=== PATIENT | male | born 1945 | race Caucasian/White ===

== ENCOUNTER 2021-03-15 07:58 | Outpatient (CLI) | payer BC, SELFPAY ==
--- NOTE | 2021-03-15 08:00 | ECG_ITS ---
Measurements Intervals [place] Rate: 66 P: 26 WA: 177 QRS: 24 QRSD: 136 T: 51 QT: 424 QTc: 446 Interpretive Statements SINUS RHYTHM POSSIBLE LEFT ATRIAL ENLARGEMENT RIGHT BUNDLE BRANCH BLOCK CANNOT RULE OUT SEPTAL INFARCT, AGE INDETERMINATE BASELINE ARTIFACT- I, II, III, AVL, AVF ABNORMAL ECG Electronically Signed On 03-15-2021 8:22:01 CDT by Pepe Meeks D.O.
[2021-03-15 09:05] LABS: Anion Gap 11 mmol/L (8-16); Blood Urea Nitrogen 41 mg/dL (9-20); Calcium 8.9 mg/dL (8.4-10.2); Carbon Dioxide 24 mmol/L (22-30); Chloride 102 mmol/L (98-107); Estimated Glomerular Filt Rate 59; Glucose 159 mg/dL (65-110); Potassium 3.9 mmol/L (3.4-5.0); Sodium 137 mmol/L (137-145)
== END 2021-03-15 07:59 | disposition home or self-care (01) ==
LOC: ANHSURGERY 08:03
PROVIDERS: Anesthesiology; PCP Internal Medicine; Visit Provider Orthopaedic Surgery
DX: E11.9 Type 2 diabetes mellitus without complications (principal); I10 Essential (primary) hypertension; Z01.818 Encounter for other preprocedural examination; R94.31 Abnormal electrocardiogram [ECG] [EKG]
CPT/HCPCS: 36415; 80048; 93005

== ENCOUNTER 2021-03-25 04:20 | Day surgery (SDC) | payer BC, SELFPAY ==
[2021-03-10 10:36] VITALS: BMI 34.0
[2021-03-25] VITALS (9 sets, daily range): BP systolic 113–146; BP diastolic 55–74; PULSE 55–61; RESP 16–18; TEMP 36.3; O2SAT 96–99
--- NOTE | ~2021-03-25 | XR_ITS ---
EXAMINATION: XR surgery orthopedic DATE: 03/25/2021 13:09 INDICATION: Left great toe osteomyelitis. TECHNIQUE: 2 intraoperative fluoroscopic views of left foot were obtained. I was not present. Fluoros copy exposure time was 5 seconds. COMPARISON: Left foot radiographs 02/23/2021 FINDINGS: There is amputation of the first ray at the diaphysis of first proximal phalanx. There is s evere hallux valgus. IMPRESSION: 1. Amputation of the first ray at the diaphysis of the proximal phalanx. Reviewed, dictated and finalized at location B.
--- NOTE | 2021-03-25 07:11 | WPDHPUPDATE1 ---
History and Physical Update Update Date/Time: 03/25/21 07:11 History and Physical has been reviewed, including an updated exam of the patient. There are NO changes in the patient's condition. Risks, benefits, and alternatives have been discussed and questions answered. Patient agrees to proceed with procedure.
[2021-03-25] MEDS: ACETAMINOPHEN 500 MG TABLET 1000 MG PO (11:09)
[2021-03-25] MEDS: KETOROLAC 15 MG/ML VIAL (*BKC) IV PUSH (11:09)
[2021-03-25] MEDS: LACTATED RINGERS 1,000 ML 30 ML IV CONT (11:11)
--- NOTE | 2021-03-25 11:13 | SUR.PREOP ---
patient states he has crutches at home and is very familiar with using them. denies need for any teaching
[2021-03-25 11:21] LABS: Glucose Point of Care 177 mg/dl (65-105)
--- NOTE | 2021-03-25 12:21 | WPDANESEPPF ---
Anes - Initial Pre Proc Eval Procedure: Operation Date: 03/25/21 12:30 Proposed Procedures p Left Foot Debridement, Excision Osteomyelitis - Jeremiah Carey MD s Possible Left Hallux Amputation - Jeremiah Carey MD Date/Time: 03/25/21 12:21 Surgeon: Jeremiah Carey MD Pre Op Diagnosis: left diabetic foot, left hallux steomyelitis Patient Data Age: 75 Gender: M Height: 1.75 m Weight: 106.4 kg Last Vital Signs Temp 36.3 C L 03/25/21 10:51 Pulse 61 03/25/21 10:51 Resp 16 03/25/21 10:51 BP 137/60 03/25/21 10:51 Pulse Ox 98 03/25/21 10:51 Allergies Allergy/AdvReac Type Severity Reaction Status Date / Time Penicillins Allergy Unknown Hives Verified 03/25/21 10:12 Home Medications Medication Instructions Recorded Confirmed Type mecobalamin (vitamin B12) 1,000 1,000 mcg SUBLINGUAL DAILY 08/06/19 03/25/21 History mcg disintegrating tablet,sublingual omega-3 fatty acids 1,000 mg 2,000 mg PO BID cap 08/06/19 03/25/21 History capsule dapagliflozin 5 mg tablet See Rx Instructions .ROUTE 06/30/20 03/25/21 Rx .COMPLEX #90 tablet rosuvastatin 40 mg tablet See Rx Instructions .ROUTE 10/16/20 03/25/21 Rx .COMPLEX #90 tablet indapamide 2.5 mg tablet See Rx Instructions .ROUTE 10/27/20 03/25/21 Rx .COMPLEX #90 tablet semaglutide See Rx Instructions .ROUTE 11/19/20 03/25/21 Rx .COMPLEX #1.5 syr pen needle, diabetic 32 gauge x See Rx Instructions .ROUTE 11/25/20 03/25/21 Rx 1/4 .COMPLEX #100 syringe irbesartan 300 mg tablet See Rx Instructions .ROUTE 12/09/20 03/25/21 Rx .COMPLEX #90 tablet flash glucose scanning reader #1 ea 12/30/20 03/25/21 Rx flash glucose sensor #6 ea 12/30/20 03/25/21 Rx insulin aspar prot-insulin aspart See Rx Instructions .ROUTE 02/09/21 03/25/21 Rx 100 unit/mL (70-30) subcutaneous .COMPLEX #45 syr pen nebivolol 10 mg tablet See Rx Instructions .ROUTE 03/09/21 03/25/21 Rx .COMPLEX #90 tablet metformin 1,000 mg PO BID PRN 03/10/21 03/25/21 History blood sugar diagnostic #100 each 03/11/21 03/25/21 Rx colesevelam 625 mg tablet 1,875 mg PO BID #540 tablet 03/22/21 03/25/21 Rx Laboratory Tests 03/25/21 11:17 POC Capillary Glucose 177 mg/dl H mg/dl (65-105) Patient hx anesthesia problems: none Family hx anesthesia problems: none PMFSH Past Medical History Medical History Abnormal electrocardiography Abnormal finding of blood chemistry, unspecified Amputation of toe ASHD (arteriosclerotic heart disease) Benign essential hypertension BMI 34.0-34.9,adult CKD (chronic kidney disease) Color blind Diabetes mellitus type 2, insulin dependent Diabetes mellitus with hyperglycemia, with long-term current use of insulin Diabetes mellitus with neuropathy Diabetic foot ulcer Elevated homocysteine Elevated PSA Encounter for preventive health examination Encounter for routine adult health examination without abnormal findings Hallux valgus Hearing loss History of prostate cancer Hyperlipidemia Left hallux osteomyelitis Myocardial contusion Non-healing skin lesion On intermediate designer drug therapy Prostate cancer screening PVCs (premature ventricular contractions) Ulcer of left foot due to type 2 diabetes mellitus Surgical History Surgical History History of foot surgery Hx of CABG Family History Family History Sibling Family history of heart disease in male family member before age 55 Grandparent Acute myocardial infarction Other Diabetes mellitus Family history of malignant neoplasm Hypertension Social History Social History Second hand tobacco smoke exposure: No Alcohol intake: never Drinks per week: 1 Substance use: never Substance use type: does not use Living arrangements: with family
[2021-03-25] MEDS: ceFAZolin 2 GM/D5W 50 ML 2 GM/50 ML BAG IVPB (12:38)
[2021-03-25] MEDS: BUPIVACAINE HCL 0.5% PF 30 ML VIAL INFILTRATE (13:05)
--- NOTE | 2021-03-25 13:21 | P.OP_ITS ---
Procedure Note - Detailed Date of Procedure 03/25/21 Pre-op Diagnosis left diabetic foot ulcer, left hallux osteomyelitis Post-op Diagnosis same Procedure Performed Debridement of left diabetic foot ulcer, 6 centimeter squared. Interphalangeal amputation of the left hallux. Surgeon Jeremiah Carey MD Insurance Claim Representative blacksmith assistant Anesthesia general Indications 75-year-old gentleman with insulin-dependent diabetes and peripheral neuropathy. Previous history of ulcerations, osteomyelitis and amputations of the toes and both feet. Presents with ulcer involving the left hallux and forefoot as well as concern for osteomyelitis of the hallux. Worsening despite oral antibiotics wound care. Presents for operative treatment. Full discussion had with the patient about chance for salvage of the toe versus amputation. Patient verbalizes understanding. Findings Osteomyelitis of the distal phalanx of the hallux involving most of the distal phalanx and the interphalangeal joint. 3 x 2 cm ulceration medial hallux. 1 x 1 cm ulceration lateral hallux with communication through interphalangeal joint. Description of Procedure What was done: Patient identified in the preoperative holding. Informed consent given. Operative extremity marked. Patient received intravenous antibiotics. Patient brought to the operating room where underwent general anesthetic by anesthesia team. Positioned supine on operating room table. Time-out performed confirming the patient, site of the surgery and the plan. left foot prepped draped usual sterile surgical fashion a Betadine prep solution. The foot was exsanguinated and a calf tourniquet inflated to 225 mmHg. Fifteen blade knife used to debride the left diabetic foot ulcer which was 3 x 2 cm. Excisional debridement performed of the skin, subcutaneous tissue and muscle. The flexor hallucis longus tendon was also noted to be involved in was sharply excised from the wound. Wound thoroughly irrigated with antibiotic solution and closed with 0 Prolene interrupted suture. Dorsal incision made over the hallux and osteomyelitis of the distal phalanx and the interphalangeal joint noted. Due to the amount of involvement of the distal phalanx resection of the osteomyelitis would have left no support. Decision to perform interphalangeal amputation was made at that time. Medial collateral ligaments released. The incision was keep continued circumferentially in the distal aspect of the hallux was removed and passed off. The distal end of the proximal phalanx was removed with a rongeur. Wound thoroughly irrigated antibiotic solution. Soft tissue closed with 3-0 Monocryl interrupted suture. Skin repaired with 0 Prolene interrupted suture. Sterile dressing applied. The patient was then woken from anesthesia, extubated and taken to the recovery room in stable condition. All sponge, needle, instrument counts were correct at the end of the case. Estimated Blood Loss 5 Tourniquet Time 20 Drains No Packing No Pathology yes ( Distal hallux left foot) Complications None Condition stable Disposition PACU
[2021-03-25 13:34] LABS: Glucose Point of Care 171 mg/dl (65-105)
--- NOTE | 2021-03-25 15:00 | SUR.PHASEII ---
Patient has a boot that we are going to make sure fits over dressing before d/c.
== END 2021-03-25 15:25 | disposition home or self-care (01) ==
PROVIDERS: PCP Internal Medicine; Visit Provider Orthopaedic Surgery
PROC: (CPT 11043; principal; 2021-03-25 12:30)
PROC: (CPT 11043; 2021-03-25 12:30)
DX: E11.621 Type 2 diabetes mellitus with foot ulcer (principal); L97.529 Non-pressure chronic ulcer of other part of left foot with unspecified severity; M86.9 Osteomyelitis, unspecified; L03.032 Cellulitis of left toe; E11.42 Type 2 diabetes mellitus with diabetic polyneuropathy; Z79.4 Long term (current) use of insulin; E11.22 Type 2 diabetes mellitus with diabetic chronic kidney disease; I12.9 Hypertensive chronic kidney disease with stage 1 through stage 4 chronic kidney disease, or unspecified chronic kidney disease; N18.9 Chronic kidney disease, unspecified; I25.10 Atherosclerotic heart disease of native coronary artery without angina pectoris; E66.9 Obesity, unspecified; Z68.34 Body mass index [BMI] 34.0-34.9, adult; Z95.1 Presence of aortocoronary bypass graft; Z85.46 Personal history of malignant neoplasm of prostate; Z79.899 Other long term (current) drug therapy; Z88.0 Allergy status to penicillin
CPT/HCPCS: 11043; 28825; 82948; 88305; 88311; A9270; J0690; J1100; J1885; J2405; J2704; J3010; J7120

== ENCOUNTER 2022-07-07 15:37 | Inpatient (IN) | payer BC, MEDICARE, SELFPAY ==
[2022-07-07] VITALS (10 sets, daily range): BP systolic 116–142; BP diastolic 58–77; PULSE 54–73; RESP 14–20; TEMP 36.3–36.9; O2SAT 95–100
--- NOTE | ~2022-07-07 | XR_ITS ---
EXAMINATION: XR chest 1V portable DATE: 07/14/2022 09:51 INDICATION: Verify position of PICC line with the patient complaint of pinching . TECHNIQUE: frontal view of the chest was obtained. COMPARISON: Chest radiograph dated 09/14/2018 FINDINGS: Tip of a relatively small bore catheter is seen projecting over the soft tissues at the medial aspect of the proximal most left upper arm near the axilla. Unclear whether this represents a peripheral IV or peripherally inserted central venous catheter. No other catheters identified. Lungs remain clear with no focal airspace opacities, pulmonary edema, pleural effusion or pneumothora x. Chronic eventration along the right hemidiaphragm. Cardiomediastinal silhouette is normal. Median sternotomy wires and mediastinal surgical clips are seen, likely from prior coronary artery bypass gr afting. IMPRESSION: 1. Tip of an incompletely visualized catheter at the medial aspect of the proximal most left upper ar m. 2. No acute cardiopulmonary disease. Reviewed, dictated and finalized at location A. TRIMMER IMPRESSION: 1. Tip of an incompletely visualized catheter at the medial aspect of the proxi mal most left upper arm. 2. No acute cardiopulmonary disease.
--- NOTE | ~2022-07-07 | MR_ITS ---
EXAMINATION: MR foot LT wo con DATE: 07/08/2022 13:58 INDICATION: Left foot diabetic ulcer. TECHNIQUE: Magnetic resonance imaging (MRI) of the left foot was performed without intravenous contra st. COMPARISON: Left foot MRI 06/13/2017, radiograph 07/07/2022, 03/30/2021 FINDINGS: There is severe hallux valgus. There is amputation of diaphysis of first proximal phalanx. There are changes of resection of distal half of fourth metatarsal. There is amputation of diaphysis of fifth metatarsal. There is severe osteoarthritis of medial naviculocuneiform joint. There is later al subluxation of the second and third metatarsals with respect to the tarsal bones with tear of the Lisfranc ligament. There is severe osteoarthritis of first-third tarsometatarsal joints and moderate osteoarthritis of fourth and fifth tarsometatarsal joints. There is moderate osteoarthritis of first metatarsophalangeal joint. There is osteoarthritis involving the remaining interphalangeal joints. Th ere is an ulcer plantar to the third metatarsophalangeal joint. There is soft tissue gas in third dig it. There are erosions of third metatarsophalangeal joint. There is gas and heterogeneous signal inte nsity in third proximal phalanx, consistent with osteomyelitis. There is cellulitis around third meta tarsophalangeal joint and third proximal phalanx. There is variable widespread fatty atrophy of the m usculature. There is widespread increased T2-weighted signal intensity in the musculature, consistent with subacute on chronic denervation. There is widespread edema of the fat in the foot. IMPRESSION: 1. Osteomyelitis involving third proximal phalanx and septic arthritis involving third metatarsophala ngeal joint. Reviewed, dictated and finalized at location A. ER BABY RN IMPRESSION: 1. Osteomyelitis involving third proximal phalanx and septic arthritis involvin g third metatarsophalangeal joint.
--- NOTE | ~2022-07-07 | US_ITS ---
EXAMINATION: US renal BI DATE: 07/08/2022 09:11 INDICATION: Acute kidney injury. TECHNIQUE: Multiple ultrasound grayscale images of the kidneys were obtained. COMPARISON: None. FINDINGS: The right kidney measures 10.9 x 5.4 x 5.9 cm. The left kidney measures 13.6 x 5.6 x 6.5 cm. The kidn eys demonstrate normal parenchymal echogenicity. There is a 4.7 cm cyst in left kidney. There is no h ydronephrosis. The bladder is normal. IMPRESSION: 1. Normal kidney sizes. No hydronephrosis. Reviewed, dictated and finalized at location A. ICATION INTEGRATION ENGINEER
--- NOTE | ~2022-07-07 | XR_ITS ---
XR foot LT min 3V 07/07/2022 19:08 Indication: Left foot infection for one day. History of diabetic ulcer. Procedure: 4 views left foot Comparison: Comparison to multiple prior studies sequentially, with oldest reviewed study dated 02/23. Findings: There is soft tissue gas overlying the second phalanges. There is amputation of the first d igit at the proximal phalanx. There is amputation of the fourth and fifth metatarsals. There is mild soft tissue swelling overlying the first and second digits. No significant interval change to appeara nce of the underlying osseous structures. No new lytic or blastic lesions. No significant new periost eal reaction. There is a degenerative calcaneal enthesophyte. Impression: 1: No acute bone or joint abnormalities. No significant change to the overall appearance of the left foot compared with prior study dated 03/30/2021 allowing for differences of technique. Reviewed, dictated and finalized at location A. NSION EDUCATOR Impression: 1: No acute bone or joint abnormalities. No significant change to the overall a ppearance of the left foot compared with prior study dated 03/30/2021 allowing f or differences of technique.
--- NOTE | ~2022-07-07 | US_ITS ---
EXAMINATION: US art doppler w press LE BI DATE: 07/08/2022 09:11 INDICATION: Peripheral vascular disease. TECHNIQUE: Segmental pressures and plethysmographic and Doppler waveforms of the brachial and lower e xtremity arteries were obtained. COMPARISON: ABIs 06/13/2017 FINDINGS: Right and left brachial artery pressures of 153 mm Hg and 162 mm Hg, respectively, are concordant (no rmal difference <= 30 mmHg). The right thigh pressures and below-knee pressure could not be measured due to inability to cuff occl ude the arteries. The right ankle-brachial index (KIERAN) is 1.23 (normal >= 0.9-1.0). The right great t oe-brachial index (TBI) is 0.52 (normal >= 0.65). Arterial Doppler waveforms are triphasic in common femoral artery and biphasic from superficial femoral artery to the ankle. The left thigh pressures and ankle pressure could not be measured due to inability to cuff occlude th e arteries. The left below-knee pressure index is 0.98. The left KIERAN could not be measured. There are amputations of left foot. The left TBI could not be measured. Arterial Doppler waveforms are biphasi c from common femoral artery to the ankle. IMPRESSION: 1. Normal right KIERAN and mildly decreased right TBI, consistent with right-sided arterial occlusive di sease. Note that KIERAN may be overestimated if arteries are calcified. 2. Nondiagnostic left KIERAN. Reviewed, dictated and finalized at location A. RATOR WORKER IMPRESSION: 1. Normal right KIERAN and mildly decreased right TBI, consistent with right-sided arterial occlusive disease. Note that KIERAN may be overestimated if arteries are calcified. 2. Nondiagnostic left KIERAN.
[2022-07-07 16:05] LABS: Basophils Absolute Auto 0.1 K/mm3 (0.0-0.1); Basophils Percent Auto 0.4 % (0.2-1.2); Eosinophils Absolute Auto 0.2 K/mm3 (0-0.3); Eosinophils Percent Auto 1.4 % (0-4.4); Hematocrit 45.9 % (42.0-52.0); Hemoglobin 15.1 g/dL (14.0-18.0); Immature Granulocyte Percent A 0.7 % (0-0.5); Lymphocytes Absolute Auto 1.44 K/mm3 (0.9-3.2); Lymphocytes Percent Auto 9.8 % (18.3-44.2); Mean Corpuscular HGB Conc 32.9 g/dl (32-36); Mean Corpuscular Hemoglobin 28.4 pg (26-34); Mean Corpuscular Volume 86.3 fl (80-100); Monocytes Absolute Auto 1.2 K/mm3 (0.1-0.6); Monocytes Percent Auto 7.9 % (2.6-8.5); Neutrophils Absolute Auto 11.7 K/mm3 (1.3-6.7); Neutrophils Percent Auto 79.8 % (45.5-73.1); Platelet Count Result 340 k/mm3 (150-375); Red Blood Count 5.32 M/mm3 (4.6-6.20); Red Cell Distribution Width 14.5 % (11.5-14.5); White Blood Count 14.7 K/mm3 (4.5-10.0)
[2022-07-07 16:15] LABS: Lactic Acid Reflex 1.3 mmol/L (0.7-2.0)
[2022-07-07 16:25] LABS: Alanine Aminotransferase 56 U/L (6-50); Albumin Level 3.8 g/dL (3.5-5.1); Alkaline Phosphatase 160 U/L (38-126); Anion Gap 14 mmol/L (8-16); Aspartate Amino Transferase 43 U/L (17-59); Bilirubin,Total 0.7 mg/dL (0.2-1.3); Blood Urea Nitrogen 90 mg/dL (9-20); Calcium 9.2 mg/dL (8.4-10.2); Carbon Dioxide 19 mmol/L (22-30); Chloride 101 mmol/L (98-107); Estimated CRCL calculation 32 ml/min; Estimated Glomerular Filt Rate 32; Glucose 233 mg/dL (65-110); Potassium 3.5 mmol/L (3.4-5.0); Sodium 134 mmol/L (137-145)
[2022-07-07 16:32] LABS: CRP 24.1 mg/dL (<1.0); Erythrocyte Sedimentation Rate 35 mm/hr (0-20)
--- NOTE | 2022-07-07 18:15 | ED.LOWEXIN ---
HPI - Extremity Injury (Lower) General Chief Complaint: Extremity Injury, Lower Stated Complaint: gangrene left toe Time Seen by Provider: 07/07/22 18:16 Source: patient Mode of arrival: ambulatory Limitations: no limitations History of Present Illness HPI Narrative: Patient is a 77-year-old male with a history of hypertension, hyperlipidemia, insulin-dependent diabetes, diabetic neuropathy, presenting to the emergency department for evaluation of left foot wound. Patient was seen at podiatry office today for worsening left foot wound and sent here for evaluation and admission. Patiently typically follows with Dr. Carey's office for chronic left foot wounds and has history of phalanx amputation in the past. Patient denies fever, chills. Reports that it seems that this wound popped over up over the last few days. Patient reports a wound that began on the bottom of his foot approximately 4 days ago with worsening of redness, and third toe becoming black over the past day. Patient does report sensation in his foot although it is decreased. Reports redness and swelling of the left foot and left lower extremity. Related Data Home Medications Medication Instructions Recorded Confirmed mecobalamin (vitamin B12) 1,000 1,000 mcg sublingual DAILY 08/06/19 12/01/21 mcg disintegrating tablet,sublingual omega-3 fatty acids 1,000 mg 2,000 mg PO BID 08/06/19 12/01/21 capsule (Fish Oil Concentrate) ascorbic acid (vitamin C) 1,000 mg 1 g PO DAILY 04/13/21 12/01/21 tablet beta carotene 25,000 unit capsule 25,000 unit PO DAILY 04/13/21 12/01/21 cholecalciferol (vitamin D3) 50 50 mcg PO DAILY 04/13/21 12/01/21 mcg (2,000 unit) capsule chromium picolinate 1,000 mcg 1,000 mcg PO DAILY 04/13/21 12/01/21 tablet cod liver oil 1 cap PO DAILY 04/13/21 12/01/21 folic acid 800 mcg tablet 0.8 mg PO DAILY 04/13/21 12/01/21 ginkgo biloba 120 mg tablet 120 mg PO BID 04/13/21 12/01/21 mecobalamin (vitamin B12) 1,000 1,000 mcg PO DAILY 04/13/21 12/01/21 mcg chewable tablet prasterone (dhea) 50 mg capsule 50 mg PO DAILY 04/13/21 12/01/21 (DHEA) pyridoxine (vitamin B6) 100 mg 100 mg PO DAILY 04/13/21 12/01/21 tablet saw palmetto 450 mg capsule 450 mg PO BID 04/13/21 12/01/21 vitamin E succinate 67 mg (100 1,000 unit PO DAILY 04/13/21 12/01/21 unit) tablet zinc 50 mg tablet 50 mg PO DAILY 04/13/21 12/01/21 Allergies Allergy/AdvReac Type Severity Reaction Status Date / Time Penicillins Allergy Unknown Hives Verified 12/01/21 10:53 Review of Systems Review of Systems: CONSTITUTIONAL: Denies fever, chills, or sweats. EYES: Denies visual changes, redness, or discharge. ENT: Denies rhinorrhea, congestion, sore throat, or otalgia. CARDIOVASCULAR: Denies chest pain, palpitations, or edema. RESPIRATORY: Denies cough or dyspnea. GASTROINTESTINAL: Denies abdominal pain, nausea, vomiting, or diarrhea. GENITOURINARY: Denies dysuria or hematuria. SKIN: Reports left lower extremity redness, swelling, warmth MUSCULOSKELETAL: Denies back pain, reports left foot pain, blistering, left third toe is black NEUROLOGIC: Denies headache, numbness, or weakness. [facility] Past Medical History Medical History Abnormal electrocardiography Abnormal finding of blood chemistry, unspecified Amputation of toe Anxiety ASHD (arteriosclerotic heart disease) Benign essential hypertension BMI 34.0-34.9,adult CKD (chronic kidney disease) Color blind Diabetes mellitus type 2, insulin dependent Diabetes mellitus with hyperglycemia, with long-term current use of insulin Diabetes mellitus with neuropathy Diabetic foot ulcer Diabetic ulcer of right foot associated with diabetes mellitus due to underlying condition Elevated homocysteine Elevated PSA Encounter for postoperative care Encounter for preventive health examination Encounter for routine adult health examination without abnormal findings Hallux
[2022-07-07] MEDS: metroNIDAZOLE 500 MG/ISO 100ML 500 MG/100 ML BAG 100 MG IVPB (19:57)
--- NOTE | 2022-07-07 20:13 | PM.IMHP ---
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 display maker today patient was complaining of left foot ulcer started few days ago worsening gradually associated with swelling and redness patient also has blacks discoloration of the middle toe of the left foot patient has dressing of the left foot history was taken from the patient and ER physician patient was started on IV antibiotics creatinine was around 2 baseline creatinine was 1.2 patient was started on IV flu renal ultrasound was ordered Doppler of lower extremity was ordered patient has history of allergy to penicillin in the past with skin rash patient has tolerated cefdinir recently patient will be admitted for further evaluation of with gangrene of the left middle toe and cellulitis of the left foot Review of Systems Review of Systems: Twelve system review was done negative except above PMFSH Past Medical History Medical History Abnormal electrocardiography Abnormal finding of blood chemistry, unspecified Amputation of toe Anxiety ASHD (arteriosclerotic heart disease) Benign essential hypertension BMI 34.0-34.9,adult CKD (chronic kidney disease) Color blind Diabetes mellitus type 2, insulin dependent Diabetes mellitus with hyperglycemia, with long-term current use of insulin Diabetes mellitus with neuropathy Diabetic foot ulcer Diabetic ulcer of right foot associated with diabetes mellitus due to underlying condition Elevated homocysteine Elevated PSA Encounter for postoperative care Encounter for preventive health examination Encounter for routine adult health examination without abnormal findings Hallux valgus Hearing loss History of prostate cancer Hyperlipidemia Left hallux osteomyelitis Myocardial contusion Non-healing skin lesion On long-term drug therapy Prostate cancer screening PVCs (premature ventricular contractions) Ulcer of left foot due to type 2 diabetes mellitus Surgical History Surgical History History of foot surgery Hx of CABG Family History Family History Sibling Family history of heart disease in male family member before age 55 Grandparent Acute myocardial infarction Other Diabetes mellitus Diabetic foot ulcer Family history of malignant neoplasm Hypertension Social History Social History Smoking status: Never smoker Second hand tobacco smoke exposure: No Alcohol intake: never Drinks per week: 1 Substance use: never Substance use type: does not use Spiritual care concerns: No Meds Home Medications and Allergies Home Medications Medication Instructions Recorded Confirmed Type mecobalamin (vitamin B12) 1,000 1,000 mcg sublingual DAILY 08/06/19 12/01/21 History mcg disintegrating tablet,sublingual omega-3 fatty acids 1,000 mg 2,000 mg PO BID 08/06/19 12/01/21 History capsule (Fish Oil Concentrate) flash glucose scanning reader #1 ea 12/30/20 12/01/21 Rx (FreeStyle Yohannes 2 [place]) flash glucose sensor (FreeStyle #6 ea 12/30/20 12/01/21 Rx Yohannes 2 Sensor kit) blood sugar diagnostic (OneTouch #100 ea 03/11/21 12/01/21 Rx Verio test strips) colesevelam 625 mg tablet (WelChol) 1,875 mg PO BID #540 tabs 03/22/21 12/01/21 Rx ascorbic acid (vitamin C) 1,000 mg 1 g PO DAILY 04/13/21 12/01/21 History tablet beta carotene 25,000 unit capsule 25,000 unit PO DAILY 04/13/21 12/01/21 History cholecalciferol (vitamin D3) 50 50 mcg PO DAILY 04/13/21 12/01/21 History mcg (2,000 unit) capsule chromium picolinate 1,000 mcg 1,000 mcg
[2022-07-07 20:19] LABS: Influenza A QL RT-PCR Negative (Negative); Influenza B QL RT-PCR Negative (Negative); RSV RNA, RT-PCR Negative (Negative); SARS-CoV-2 RNA PCR Negative
[2022-07-07 20:45] LABS: Glucose Point of Care 209 mg/dl (65-105)
[2022-07-07 21:02] LABS: INR 1.2; Partial Thromboplastin Time 32.1 SECONDS (22.3-36.8); Prothrombin Time 15.2 Seconds (11.1-14.7)
[2022-07-07 21:03] LABS: Creatine Kinase 77 U/L (55-170)
[2022-07-07 21:04] LABS: Magnesium 2.6 mg/dL (1.6-2.3)
[2022-07-07 21:37] LABS: Total Protein Urine Random 31 mg/dL
[2022-07-07 21:45] LABS: Potassium Urine Random 31.4 meq/L; Sodium Urine Random 48 meq/L
--- NOTE | 2022-07-07 22:00 | ADMGEN ---
This patient, Eldon Gonzales, was admitted to 3 [facility] Surg Room 310-01. Patient/family oriented to hospital policies and general routines including ID bracelet, bed and alarms, visiting hours, pain management, procedures, bathroom and other care routines, personal items, smoking policy, room service/diet, and visiting hours. Information on how to activate the Rapid Response Team has been discussed. Patient/Family are encouraged to report perceived risks to care and to ask questions if they do not understand what they are told or what they should do.
[2022-07-07] MEDS: HYDROcodone/acetaminophen (*CRX) 5-325 MG TABLET 1 TAB PO (23:01)
[2022-07-07] MEDS: SODIUM CHLORIDE 0.9% IV 1,000 ML 100 ML IV CONT (23:02)
[2022-07-07] MEDS: FAMOTIDINE 20 MG TABLET PO (23:02)
[2022-07-08 02:12] VITALS: BMI 31.2
[2022-07-08] MEDS: metroNIDAZOLE 500 MG/ISO 100ML 500 MG/100 ML BAG 100 MG IVPB ×4 (02:30→21:20)
[2022-07-08 02:41] LABS: Uric Acid 9.3 mg/dL (3.5-8.5)
[2022-07-08 06:14] VITALS: BP 117/61; PULSE 72; RESP 16; TEMP 36.9; O2SAT 99
[2022-07-08 06:36] LABS: Basophils Absolute Auto 0.1 K/mm3 (0.0-0.1); Basophils Percent Auto 0.6 % (0.2-1.2); Eosinophils Absolute Auto 0.4 K/mm3 (0-0.3); Eosinophils Percent Auto 3.1 % (0-4.4); Hematocrit 42.3 % (42.0-52.0); Hemoglobin 13.9 g/dL (14.0-18.0); Immature Granulocyte Absolute 0.12 K/mm3 (0.00-0.031); Lymphocytes Absolute Auto 1.16 K/mm3 (0.9-3.2); Mean Corpuscular HGB Conc 32.9 g/dl (32-36); Mean Corpuscular Hemoglobin 28.1 pg (26-34); Mean Corpuscular Volume 85.5 fl (80-100); Mean Platelet Volume 10.2 fl (7.4-10.4); Monocytes Absolute Auto 1.3 K/mm3 (0.1-0.6); Monocytes Percent Auto 11.3 % (2.6-8.5); Neutrophils Absolute Auto 8.6 K/mm3 (1.3-6.7); Platelet Count Result 284 k/mm3 (150-375); Red Blood Count 4.95 M/mm3 (4.6-6.20); Red Cell Distribution Width 14.5 % (11.5-14.5); White Blood Count 11.6 K/mm3 (4.5-10.0)
[2022-07-08 06:57] LABS: Anion Gap 10 mmol/L (8-16); Blood Urea Nitrogen 81 mg/dL (9-20); Calcium 8.4 mg/dL (8.4-10.2); Carbon Dioxide 23 mmol/L (22-30); Chloride 105 mmol/L (98-107); Estimated CRCL calculation 42 ml/min; Estimated Glomerular Filt Rate 45; Glucose 244 mg/dL (65-110); Potassium 3.5 mmol/L (3.4-5.0); Sodium 138 mmol/L (137-145)
[2022-07-08 07:59] LABS: Glucose Point of Care 212 mg/dl (65-105)
[2022-07-08] MEDS: SODIUM CHLORIDE 0.9% IV 1,000 ML 100 ML IV CONT (09:24)
[2022-07-08 09:26] VITALS: PULSE 65
[2022-07-08] MEDS: NEBIVOLOL HCL 5 MG TABLET 10 MG PO (09:26)
[2022-07-08] MEDS: OMEGA 3 POLYUNSAT FATTY ACIDS 1 GM CAP 2 GM PO ×2 (09:29→16:26)
[2022-07-08] MEDS: INDAPAMIDE 2.5 MG TABLET PO (09:29)
[2022-07-08] MEDS: FAMOTIDINE 20 MG TABLET PO ×2 (09:29→21:19)
[2022-07-08] MEDS: ASPIRIN 81 MG CHEWABLE TABLET PO (09:29)
[2022-07-08] MEDS: HEPARIN SODIUM 5,000 UNITS/ML VIAL 5000 UNITS SUB-Q (09:30)
[2022-07-08] MEDS: INSULIN ASPART (*BKC) 100 UNITS/ML SUB-Q (09:30)
[2022-07-08] MEDS: ROSUVASTATIN 10 MG TABLET 40 MG PO (09:30)
[2022-07-08] MEDS: ZINC SULFATE 220 MG CAPSULE PO (09:30)
--- NOTE | 2022-07-08 10:02 | PM.CNOR ---
Assessment and Plan Assessment and plan (1) Gangrenous toe: Code(s): I96 - Gangrene, not elsewhere classified Status: Acute (2) Cellulitis of left foot: Code(s): L03.116 - Cellulitis of left lower limb Status: Acute (3) Wound with tunneling: Code(s): T14.8XXA - Other injury of unspecified body region, initial encounter Status: Acute (4) Diabetes mellitus with neuropathy: Qualifiers: Diabetes mellitus type: type 2 Diabetes mellitus halfway insulin use: with halfway use Qualified Code(s): E11.40 - Type 2 diabetes mellitus with diabetic neuropathy, unspecified; Z79.4 - [facility]PC (current) use of insulin Code(s): E11.40 - Type 2 diabetes mellitus with diabetic neuropathy, unspecified Status: Acute (5) Ulcer of left foot due to type 2 diabetes mellitus: Code(s): E11.621 - Type 2 diabetes mellitus with foot ulcer; L97.529 - Non-pressure chronic ulcer of other part of left foot with unspecified severity Status: Acute Assessment and Plan: Chronic left foot callus now with acute infection involving the forefoot and 2nd toe. Subsequent gangrenous changes of the 2nd toe. Patient admitted and started on IV antibiotics. Discussed in detail with patient. Kidney ultrasound and lower extremity arterial studies pending. Discussed need for debridement of the left foot once medically stable. Patient verbalizes understanding. Dressing changes and orders initiated. Continue with IV antibiotics. Plan left foot surgery when stable. Discussed nonoperative and operative treatment options with the patient. Risks and benefits of each as well as alternatives were reviewed. All of the patient's questions were answered. The risks of surgery reviewed including but not limited to: Neurovascular damage, wound complication, infection, blood clot, pulmonary embolus, stroke, myocardial infarction, and anesthetic risks up to and including . Continued pain and possible dysfunction were explained. Specific risks of the procedure including later recurrence of deformity. No guarantees were offered. If hardware used, discussed risk of failure/ breakage and possible need for removal. If complications occur, the patient understands the need for further treatment, possible further surgery. Patient verbalizes understanding and wishes to proceed. PLAN: Debridement left foot diabetic ulcer, left foot transmetatarsal amputation History of Present Illness HPI Consult date: 07/08/22 Requesting physician: Gaby Finley MD Chief complaint: Left foot infection, gangrene of toe Narrative: 77-year-old well known to the Orthopedic service for bilateral foot deformity, neuropathy and previous ulcerations with infection. Status post several toe amputations. Patient notify the orthopedic office July 05 about swelling to the left foot. Recommendation to be evaluated immediately in the office but patient declined. he was started on oral antibiotics by PCP. Yesterday he presented to a podiatry office who recommended he be seen in the emergency room. Patient was subsequent admitted through the emergency room. He states that the left foot became swollen around Thanksgiving time. Denies any injury or known cause. He did have a callus on the plantar foot for the past year. Review of Systems Review of Systems: CONSTITUTIONAL: Denies fever, chills, or sweats. EYES: Denies visual changes, redness, or discharge. ENT: Denies rhinorrhea, congestion, sore throat, or otalgia. CARDIOVASCULAR: Denies chest pain, palpitations, or edema. RESPIRATORY: Denies cough or dyspnea. GASTROINTESTINAL: Denies abdominal pain, nausea, vomiting, or diarrhea. GENITOURINARY: Denies dysuria or hematuria. SKIN: Reports left lower extremity redness, swelling, warmth MUSCULOSKELETAL: Denies back pain, reports left foot pain, blistering, left third toe is black NEUROLOGIC: Denies headache, numbness, or weakness. Constitu
--- NOTE | 2022-07-08 10:28 | PM.CNOR ---
Assessment and Plan Assessment and plan (1) Gangrenous toe: Code(s): I96 - Gangrene, not elsewhere classified Status: Acute Plan Billing History of Present Illness HPI Consult date: 07/08/22 Chief complaint: Left foot infection, gangrene of toe PMFSH Past Medical History Medical History Abnormal electrocardiography Abnormal finding of blood chemistry, unspecified Amputation of toe Anxiety ASHD (arteriosclerotic heart disease) Benign essential hypertension BMI 34.0-34.9,adult CKD (chronic kidney disease) Color blind Diabetes mellitus type 2, insulin dependent Diabetes mellitus with hyperglycemia, with long-term current use of insulin Diabetes mellitus with neuropathy Diabetic foot ulcer Diabetic ulcer of right foot associated with diabetes mellitus due to underlying condition Elevated homocysteine Elevated PSA Encounter for postoperative care Encounter for preventive health examination Encounter for routine adult health examination without abnormal findings Hallux valgus Hearing loss History of prostate cancer Hyperlipidemia Left hallux osteomyelitis Myocardial contusion Non-healing skin lesion On nursing home drug therapy Prostate cancer screening PVCs (premature ventricular contractions) Ulcer of left foot due to type 2 diabetes mellitus Surgical History Surgical History History of foot surgery Hx of CABG Family History Family History Sibling Family history of heart disease in male family member before age 55 Grandparent Acute myocardial infarction Other Diabetes mellitus Diabetic foot ulcer Family history of malignant neoplasm Hypertension Social History Social History Smoking status: Never smoker Second hand tobacco smoke exposure: No Alcohol intake: never Drinks per week: 1 Substance use: never Substance use type: does not use Lack of Transportation: No Lack of Food: Never True Current Housing: I Have Housing Concerned About Future Housing: No Difficulty Paying Gas/Electric Bills: No Difficulty Paying for Meds: No Currently Unemployed: No Education: Grade School Difficulty w/ Childcare or Family Care: No Spiritual care concerns: No Meds Home Medications and Allergies Home Medications Medication Instructions Recorded Confirmed Type omega-3 fatty acids 1,000 mg 2,000 mg PO BID 08/06/19 07/07/22 History capsule (Fish Oil Concentrate) flash glucose scanning reader #1 ea 12/30/20 07/07/22 Rx (FreeStyle [place] 2 [place]) flash glucose sensor (FreeStyle #6 ea 12/30/20 07/07/22 Rx Yohannes 2 Sensor kit) blood sugar diagnostic (OneTouch #100 ea 03/11/21 07/07/22 Rx Verio test strips) chromium picolinate 1,000 mcg 1,000 mcg PO DAILY 04/13/21 07/07/22 History tablet ginkgo biloba 120 mg tablet 60 mg PO ONCE 04/13/21 07/07/22 History saw palmetto 450 mg capsule 450 mg PO ONCE 04/13/21 07/07/22 History zinc 50 mg tablet 50 mg PO DAILY 04/13/21 07/07/22 History insulin aspar prot-insulin aspart See Rx Instructions .Route 09/01/21 07/07/22 Rx 100 unit/mL (70-30) subcutaneous .COMPLEX #45 mL pen (Novolog Mix 70-30FlexPen U-100) pen needle, diabetic 32 gauge x See Rx Instructions .Route 12/01/21 07/07/22 Rx 1/4 (Novofine 32) .COMPLEX #100 ea Ozempic 0.25 mg or 0.5 mg (2 See Rx Instructions .Route 01/24/22 07/07/22 Rx mg/1.5 mL) subcutaneous pen .COMPLEX #1.5 mL injector (semaglutide) cefdinir 300 mg capsule 300 mg PO Q12H 7 days #14 caps 07/05/22 07/07/22 Rx doxycycline hyclate 100 mg capsule 100 mg PO BID 10 days #20 caps 07/05/22 07/07/22 Rx aspirin 81 mg capsule 81 mg PO DAILY 07/07/22 07/07/22 History dapagliflozin 5 mg tablet (Farxiga) 5 mg PO DAILY 07/07/22 07/07/22 History indapamide 2.5 mg tablet 2.5
--- NOTE | 2022-07-08 11:45 | PM.IMPN ---
Progress Note: A&P Assessment and Plan (1) Gangrenous toe: Code(s): I96 - Gangrene, not elsewhere classified Status: Acute Assessment and Plan: for orthopedics following. Per patient plan to do an amputation Artery Doppler of lower extremity Wound care consult No plan for therapeutic anticoagulation for now pending with address eval (2) Cellulitis of left foot: Code(s): L03.116 - Cellulitis of left lower limb Status: Acute Assessment and Plan: IV vancomycin IV cefepime IV Flagyl Pharmacy to dose Patient tolerated cefdinir in the past (3) Ulcer of left foot due to type 2 diabetes mellitus: Code(s): E11.621 - Type 2 diabetes mellitus with foot ulcer; L97.529 - Non-pressure chronic ulcer of other part of left foot with unspecified severity Status: Acute Assessment and Plan: Wound care consult IV antibiotics (4) Diabetes mellitus with hyperglycemia, with long-term current use of insulin: Qualifiers: Diabetes mellitus type: type 2 Qualified Code(s): E11.65 - Type 2 diabetes mellitus with hyperglycemia; 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 Code(s): E11.65 - Type 2 diabetes mellitus with hyperglycemia; 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 Status: Acute Assessment and Plan: Pending home medication reconciliation I started insulin sliding scale (5) Hx of CABG: Code(s): Z95.1 - Presence of aortocoronary bypass graft Status: Acute Assessment and Plan: Pending home medication reconciliation (6) CKD (chronic kidney disease): Qualifiers: Chronic kidney disease stage: stage 1 Qualified Code(s): N18.1 - Chronic kidney disease, stage 1 Code(s): N18.9 - Chronic kidney disease, unspecified Status: Acute Assessment and Plan: Acute on top of chronic renal failure probably related to dehydration check CK urine electrolytes renal ultrasound bladder scan for now Continue IV fluid avoid nephrotoxic medication (7) Hyperlipidemia: Qualifiers: Hyperlipidemia type: mixed hyperlipidemia Qualified Code(s): E78.2 - Mixed hyperlipidemia Code(s): E78.5 - Hyperlipidemia, unspecified Status: Acute Assessment and Plan: Continue current treatment (8) Benign essential hypertension: Code(s): I10 - Essential (primary) hypertension Status: Acute Assessment and Plan: Added p.r.n. hydralazine pending home medication reconciliation Subjective Date/time seen: 07/08/22 11:45 no complaints, pain control Exam Narrative: GENERAL: Well appearing, well-nourished, non-toxic, in no acute distress. HEAD: Normocephalic, atraumatic. NECK: Supple. No adenopathy, no masses. RESPIRATORY: Airway patent, respirations nonlabored. Clear to auscultation bilaterally, no rales, rhonchi, wheezing. CARDIOVASCULAR: Regular rate and rhythm without murmurs, rubs, or gallops. Peripheral pulses 2+ and equal bilaterally. ABDOMINAL: Soft, nontender, nondistended, no hepatosplenomegaly. Normoactive BS. MUSCULOSKELETAL: Left foot in dressing examined by the ER physician SKIN: Warm, dry, normal color. No rashes. NEURO: A&O X3. Moves all extremities PSYCHIATRIC: Appropriate mood and affect. Normal interaction. Objective Data Vital Signs Vital Signs: Vital Signs - 24 hr 07/07/22 15:41 07/07/22 20:04 07/07/22 20:11 Temperature 97.4 F L Pulse Rate 72 67 67 Respiratory Rate 18 14 20 Blood Pressure 142/77 H 134/70 Pulse Oximetry 100 100 100 Oxygen Delivery Room Air 07/07/22 22:17 07/07/22 20:03 07/07/22 21:15 Temperature Pulse Rate 63 73 Respiratory Rate 16 Blood Pressure 135/77 Pulse Oximetry 100 Oxygen Delivery 07/07/22 21:30 07/07/22 21:45 07/07/22 22:00 Temperature Pulse Rate 64 69 73 Respiratory Rate 15 14 18 Blood Pressure Pulse Oximetry Oxygen Delivery 07/07/22 22:41 07/08/22 06:14 07/08/22 09:26 Temperature 98.4 F 9
[2022-07-08 11:46] LABS: Glucose Point of Care 175 mg/dl (65-105)
[2022-07-08 14:00] VITALS: BP 131/51; PULSE 72; RESP 16; TEMP 36.5; O2SAT 100
[2022-07-08] MEDS: MORPHINE SULFATE (*CRX) 2 MG/ML INJ IV PUSH (16:27)
[2022-07-08 16:34] LABS: Glucose Point of Care 190 mg/dl (65-105)
[2022-07-08 20:00] VITALS: PULSE 72; RESP 16; O2SAT 100
[2022-07-08] MEDS: GABAPENTIN 300 MG CAPSULE PO (21:19)
[2022-07-08 21:27] LABS: Glucose Point of Care 234 mg/dl (65-105)
[2022-07-08 22:00] VITALS: BP 140/66; PULSE 73; RESP 16; TEMP 36.2; O2SAT 100
[2022-07-09] MEDS: metroNIDAZOLE 500 MG/ISO 100ML 500 MG/100 ML BAG 100 MG IVPB ×3 (02:22→17:25)
[2022-07-09] MEDS: SODIUM CHLORIDE 0.9% IV 1,000 ML 100 ML IV CONT ×2 (05:42→21:19)
[2022-07-09 06:00] VITALS: BP 137/73; PULSE 64; RESP 17; TEMP 36.4; O2SAT 100
[2022-07-09 07:36] LABS: Basophils Absolute Auto 0.1 K/mm3 (0.0-0.1); Basophils Percent Auto 0.7 % (0.2-1.2); Eosinophils Absolute Auto 0.4 K/mm3 (0-0.3); Eosinophils Percent Auto 3.7 % (0-4.4); Hematocrit 45.2 % (42.0-52.0); Hemoglobin 14.3 g/dL (14.0-18.0); Immature Granulocyte Absolute 0.11 K/mm3 (0.00-0.031); Lymphocytes Percent Auto 14.7 % (18.3-44.2); Mean Corpuscular HGB Conc 31.6 g/dl (32-36); Mean Corpuscular Hemoglobin 28.4 pg (26-34); Mean Corpuscular Volume 89.7 fl (80-100); Mean Platelet Volume 10.4 fl (7.4-10.4); Monocytes Absolute Auto 1.1 K/mm3 (0.1-0.6); Monocytes Percent Auto 9.6 % (2.6-8.5); Neutrophils Absolute Auto 8.1 K/mm3 (1.3-6.7); Neutrophils Percent Auto 70.3 % (45.5-73.1); Platelet Count Result 273 k/mm3 (150-375); Red Blood Count 5.04 M/mm3 (4.6-6.20); Red Cell Distribution Width 14.7 % (11.5-14.5); White Blood Count 11.5 K/mm3 (4.5-10.0)
[2022-07-09 07:40] LABS: Alanine Aminotransferase 40 U/L (6-50); Albumin Level 3.1 g/dL (3.5-5.1); Alkaline Phosphatase 123 U/L (38-126); Anion Gap 8 mmol/L (8-16); Aspartate Amino Transferase 27 U/L (17-59); Bilirubin,Total 0.7 mg/dL (0.2-1.3); Blood Urea Nitrogen 56 mg/dL (9-20); Calcium 8.6 mg/dL (8.4-10.2); Carbon Dioxide 21 mmol/L (22-30); Chloride 106 mmol/L (98-107); Estimated CRCL calculation 48 ml/min; Estimated Glomerular Filt Rate 53; Glucose 219 mg/dL (65-110); Potassium 3.8 mmol/L (3.4-5.0); Sodium 135 mmol/L (137-145)
[2022-07-09 08:36] LABS: Glucose Point of Care 223 mg/dl (65-105)
[2022-07-09] MEDS: OMEGA 3 POLYUNSAT FATTY ACIDS 1 GM CAP 2 GM PO ×2 (09:07→17:26)
[2022-07-09] MEDS: ROSUVASTATIN 10 MG TABLET 40 MG PO (09:07)
[2022-07-09] MEDS: FAMOTIDINE 20 MG TABLET PO ×2 (09:07→21:03)
[2022-07-09] MEDS: INDAPAMIDE 2.5 MG TABLET PO (09:07)
[2022-07-09] MEDS: NEBIVOLOL HCL 5 MG TABLET 10 MG PO (09:07)
[2022-07-09] MEDS: ZINC SULFATE 220 MG CAPSULE PO (09:07)
[2022-07-09] MEDS: INSULIN ASPART (*BKC) 100 UNITS/ML SUB-Q ×2 (09:13→17:24)
--- NOTE | 2022-07-09 10:08 | PM.IMPN ---
Progress Note: A&P Assessment and Plan (1) Gangrenous toe: Code(s): I96 - Gangrene, not elsewhere classified Status: Acute Assessment and Plan: orthopedics following. Per patient plan to do an amputation Artery Doppler of lower extremity (2) Cellulitis of left foot: Code(s): L03.116 - Cellulitis of left lower limb Status: Acute Assessment and Plan: IV vancomycin IV cefepime IV Flagyl Pharmacy to dose Patient tolerated cefdinir in the past (3) Ulcer of left foot due to type 2 diabetes mellitus: Code(s): E11.621 - Type 2 diabetes mellitus with foot ulcer; L97.529 - Non-pressure chronic ulcer of other part of left foot with unspecified severity Status: Acute Assessment and Plan: Wound care consult IV antibiotics (4) Diabetes mellitus with hyperglycemia, with long-term current use of insulin: Qualifiers: Diabetes mellitus type: type 2 Qualified Code(s): E11.65 - Type 2 diabetes mellitus with hyperglycemia; Z79.4 - [facility] (current) use of insulin Code(s): E11.65 - Type 2 diabetes mellitus with hyperglycemia; 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 Status: Acute Assessment and Plan: Pending home medication reconciliation I started insulin sliding scale (5) Hx of CABG: Code(s): Z95.1 - Presence of aortocoronary bypass graft Status: Acute Assessment and Plan: Pending home medication reconciliation (6) CKD (chronic kidney disease): Qualifiers: Chronic kidney disease stage: stage 1 Qualified Code(s): N18.1 - Chronic kidney disease, stage 1 Code(s): N18.9 - Chronic kidney disease, unspecified Status: Acute Assessment and Plan: Acute on top of chronic renal failure probably related to dehydration check CK urine electrolytes renal ultrasound bladder scan for now Continue IV fluid avoid nephrotoxic medication (7) Hyperlipidemia: Qualifiers: Hyperlipidemia type: mixed hyperlipidemia Qualified Code(s): E78.2 - Mixed hyperlipidemia Code(s): E78.5 - Hyperlipidemia, unspecified Status: Acute Assessment and Plan: Continue current treatment (8) Benign essential hypertension: Code(s): I10 - Essential (primary) hypertension Status: Acute Assessment and Plan: Added p.r.n. hydralazine pending home medication reconciliation Subjective Date/time seen: 07/09/22 10:08 no new complaints Exam Narrative: GENERAL: Well appearing, well-nourished, non-toxic, in no acute distress. HEAD: Normocephalic, atraumatic. NECK: Supple. No adenopathy, no masses. RESPIRATORY: Airway patent, respirations nonlabored. Clear to auscultation bilaterally, no rales, rhonchi, wheezing. CARDIOVASCULAR: Regular rate and rhythm without murmurs, rubs, or gallops. Peripheral pulses 2+ and equal bilaterally. ABDOMINAL: Soft, nontender, nondistended, no hepatosplenomegaly. Normoactive BS. MUSCULOSKELETAL: Left foot in dressing examined by the ER physician SKIN: Warm, dry, normal color. No rashes. NEURO: A&O X3. Moves all extremities PSYCHIATRIC: Appropriate mood and affect. Normal interaction. Objective Data Vital Signs Vital Signs: Vital Signs - 24 hr 07/08/22 14:00 07/08/22 20:00 07/08/22 22:00 Temperature 97.7 F 97.1 F L Pulse Rate 72 72 73 Respiratory Rate 16 16 16 Blood Pressure 131/51 L 140/66 Pulse Oximetry 100 100 100 Oxygen Delivery Room Air 07/09/22 06:00 Temperature 97.5 F L Pulse Rate 64 Respiratory Rate 17 Blood Pressure 137/73 Pulse Oximetry 100 Oxygen Delivery Intake/Output Intake/Output: Intake & Output 07/06/22 07/07/22 07/08/22 07/09/22 23:59 23:59 23:59 23:59 Intake Total 540 3340 1100 Output Total 2600 850 Balance 540 740 250 Meds/Results Medications: Active Medications Generic Name Dose Route Start Last Admin Trade Name Freq PRN Reason Stop Dose Admin Acetaminophen 650 mg 07/07/22 20:05 Aceta
[2022-07-09 11:47] LABS: Hemoglobin A1C 9.6 % (<5.7)
[2022-07-09 12:04] LABS: Glucose Point of Care 166 mg/dl (65-105)
--- NOTE | 2022-07-09 12:43 | PM.PNORT ---
Progress Note: A&P Assessment and Plan (1) Gangrenous toe: Code(s): I96 - Gangrene, not elsewhere classified Status: Acute Assessment and Plan: MRI left foot shows septic arthritis of the metatarsophalangeal joint with osteomyelitis of the toe. No further progression of infection today on exam. Continue with IV antibiotics. Plan for transmetatarsal amputation. Blood flow studies reviewed which show decreased blood flow bilaterally. Reviewed with patient. Kidney ultrasound normal. Recommend family life educator. Plan for surgery for right foot. Subjective Subjective Date/Time Seen: 07/09/22 12:43 Interval history: no new complaints Exam Const: General: healthy appearing; No in distress or confusion Orientation/consciousness: oriented to person, oriented to place, oriented to time and No confusion HENMT: Head: normal to inspection, normocephalic and atraumatic Eyes: Conjunctivae: conjunctivae normal Sclera: sclerae normal Neck: Neck: supple and nontender Resp: Effort & Inspection: normal respiratory effort and no audible wheezes Cardio: Rate: regular rate Rhythm: regular rhythm Neuro: General: oriented to person, oriented to place, oriented to time and No confusion Cranial nerves: Yes Normal hearing present Extrem: Right upper extremity: normal to inspection Left upper extremity: normal to inspection Right lower extremity: ankle Details: normal to inspection, abnormal ROM Details: with range as follows (Ankle dorsiflexion -10 degrees, Plantar flexion 40 degrees, inversion 15 degrees, [id number] degress) and other (Good stability all directions); no tenderness, no swelling and no ecchymosis and foot Details: abnormal to inspection Details: a deformity ( all toes) Location: other, abnormal ROM of toe (Hallux MTP dorsieflexion 40, planterflexion 20), vascular exam Details: dorsalis pedis pulse present and normal capillary refill, tendon exam Details: active flexion abnormal and active extension abnormal, motor-sensory exam Details: two point discrimination abnormal Location: in all toes and light-touch abnormal Location: in all toes and other (Hallux Metatarsophalangeal motion 10 degrees dorisiflexion 10 degrees plantar flexion. ) Left lower extremity: ankle Details: normal to inspection and abnormal ROM Details: with range as follows (Ankle dorsiflexion -10, planter flexion 40, inversion 15, eversion 15); no tenderness and no swelling and foot Details: abnormal ROM of toe, vascular exam (2+ DP pulse, good cap refill all toes), tendon exam active flexion normal of the great toe and active extension normal of the great toe and motor-sensory exam two point discrimination abnormal in all toes and light-touch abnormal in all toes; no tenderness and no crepitus Other: 3 cm callus plantar right hallux MTP joint. No drainage or erythema. Left foot with purple discoloration involving the entire 2nd toe /necrosis. Plantar callus with purulent drainage. Probes 4 cm distally to the 2nd toe. Moderate swelling and erythema throughout the forefoot. Mildly improves with elevation. Psych: Affect: normal affect Objective Data Vital Signs Vital Signs: Vital Signs - 24 hr 07/08/22 14:00 07/08/22 20:00 07/08/22 22:00 Temperature 97.7 F 97.1 F L Pulse Rate 72 72 73 Respiratory Rate 16 16 16 Blood Pressure 131/51 L 140/66 Pulse Oximetry 100 100 100 Oxygen Delivery Room Air 07/09/22 06:00 07/09/22 09:10 Temperature 97.5 F L Pulse Rate 64 Respiratory Rate 17 Blood Pressure 137/73 Pulse Oximetry 100 Oxygen Delivery Room Air Intake/Output Intake/Output: Intake & Output 07/06/22 07/07/22 07/08/22 07/09/22 23:59 23:59 23:59 23:59 Intake Total 540 3340 1340 Output Total 2600 850 Balance 540 740 490 Meds/Results Medications: Active Medications Generic Name Dose Route Start Last Admin Trade Name Freq PRN Reason Stop Dose Admin Acetaminophen 650 mg 07/07/22 20:05 Acetamino
[2022-07-09] MEDS: SALINE LOCK FLUSH 10 ML IV PUSH ×2 (13:58→21:19)
[2022-07-09 14:00] VITALS: BP 130/59; PULSE 63; RESP 20; TEMP 36.6; O2SAT 96
[2022-07-09 16:59] LABS: Glucose Point of Care 287 mg/dl (65-105)
[2022-07-09] MEDS: traMADol HCL (*CRX) 50 MG TABLET PO ×2 (17:26→21:18)
[2022-07-09 19:55] LABS: Glucose Point of Care 265 mg/dl (65-105)
[2022-07-09] MEDS: GABAPENTIN 300 MG CAPSULE PO (21:02)
[2022-07-09] MEDS: metroNIDAZOLE 500 MG/ISO 100ML 500 MG/100 ML BAG 125 MG IVPB (21:02)
[2022-07-09 22:00] VITALS: BP 193/58; PULSE 61; RESP 17; TEMP 36.1; O2SAT 99
[2022-07-10] MEDS: metroNIDAZOLE 500 MG/ISO 100ML 500 MG/100 ML BAG 125 MG IVPB ×3 (00:57→19:45)
[2022-07-10] MEDS: SALINE LOCK FLUSH 10 ML IV PUSH ×3 (05:01→20:54)
[2022-07-10 05:31] LABS: Basophils Absolute Auto 0.1 K/mm3 (0.0-0.1); Basophils Percent Auto 0.7 % (0.2-1.2); Eosinophils Absolute Auto 0.5 K/mm3 (0-0.3); Hematocrit 44.4 % (42.0-52.0); Hemoglobin 14.4 g/dL (14.0-18.0); Immature Granulocyte Absolute 0.17 K/mm3 (0.00-0.031); Immature Granulocyte Percent A 1.4 % (0-0.5); Lymphocytes Absolute Auto 2.29 K/mm3 (0.9-3.2); Lymphocytes Percent Auto 18.8 % (18.3-44.2); Mean Corpuscular HGB Conc 32.4 g/dl (32-36); Mean Corpuscular Hemoglobin 28.5 pg (26-34); Mean Corpuscular Volume 87.7 fl (80-100); Mean Platelet Volume 9.7 fl (7.4-10.4); Monocytes Absolute Auto 1.2 K/mm3 (0.1-0.6); Monocytes Percent Auto 9.5 % (2.6-8.5); Neutrophils Percent Auto 65.6 % (45.5-73.1); Platelet Count Result 320 k/mm3 (150-375); Red Blood Count 5.06 M/mm3 (4.6-6.20); Red Cell Distribution Width 14.7 % (11.5-14.5); White Blood Count 12.2 K/mm3 (4.5-10.0)
[2022-07-10 05:46] LABS: Alanine Aminotransferase 31 U/L (6-50); Albumin Level 3.2 g/dL (3.5-5.1); Alkaline Phosphatase 116 U/L (38-126); Anion Gap 7 mmol/L (8-16); Aspartate Amino Transferase 22 U/L (17-59); Bilirubin,Total 0.6 mg/dL (0.2-1.3); Blood Urea Nitrogen 46 mg/dL (9-20); Calcium 8.3 mg/dL (8.4-10.2); Carbon Dioxide 24 mmol/L (22-30); Chloride 105 mmol/L (98-107); Estimated CRCL calculation 48 ml/min; Estimated Glomerular Filt Rate 53; Glucose 241 mg/dL (65-110); Potassium 3.5 mmol/L (3.4-5.0); Sodium 136 mmol/L (137-145)
[2022-07-10 06:00] VITALS: BP 147/61; PULSE 58; RESP 16; TEMP 36.3; O2SAT 98
[2022-07-10 08:10] LABS: Glucose Point of Care 275 mg/dl (65-105)
[2022-07-10] MEDS: FAMOTIDINE 20 MG TABLET PO ×2 (08:16→20:54)
[2022-07-10] MEDS: OMEGA 3 POLYUNSAT FATTY ACIDS 1 GM CAP 2 GM PO ×2 (08:16→17:28)
[2022-07-10] MEDS: ROSUVASTATIN 10 MG TABLET 40 MG PO (08:16)
[2022-07-10] MEDS: INDAPAMIDE 2.5 MG TABLET PO (08:16)
[2022-07-10] MEDS: ZINC SULFATE 220 MG CAPSULE PO (08:16)
[2022-07-10] MEDS: NEBIVOLOL HCL 5 MG TABLET 10 MG PO (08:16)
[2022-07-10] MEDS: INSULIN HUMAN NPH (*BKC) 100 UNITS/ML 10 UNITS SUB-Q (09:50)
--- NOTE | 2022-07-10 11:40 | PM.IMPN ---
Progress Note: A&P Assessment and Plan (1) Gangrenous toe: Code(s): I96 - Gangrene, not elsewhere classified Status: Acute Assessment and Plan: orthopedics following. Per patient plan to do an amputation Artery Doppler of lower extremity noted (2) Cellulitis of left foot: Code(s): L03.116 - Cellulitis of left lower limb Status: Acute Assessment and Plan: IV vancomycin IV cefepime IV Flagyl (3) Ulcer of left foot due to type 2 diabetes mellitus: Code(s): E11.621 - Type 2 diabetes mellitus with foot ulcer; L97.529 - Non-pressure chronic ulcer of other part of left foot with unspecified severity Status: Acute Assessment and Plan: Wound care consult IV antibiotics (4) Diabetes mellitus with hyperglycemia, with long-term current use of insulin: Qualifiers: Diabetes mellitus type: type 2 Qualified Code(s): E11.65 - Type 2 diabetes mellitus with hyperglycemia; Z79.4 - longterm (current) use of insulin Code(s): E11.65 - Type 2 diabetes mellitus with hyperglycemia; Z79.4 - longterm (current) use of insulin Status: Acute Assessment and Plan: Pending home medication reconciliation I started insulin sliding scale (5) Hx of CABG: Code(s): Z95.1 - Presence of aortocoronary bypass graft Status: Acute Assessment and Plan: Pending home medication reconciliation (6) CKD (chronic kidney disease): Qualifiers: Chronic kidney disease stage: stage 1 Qualified Code(s): N18.1 - Chronic kidney disease, stage 1 Code(s): N18.9 - Chronic kidney disease, unspecified Status: Acute Assessment and Plan: Acute on top of chronic renal failure probably related to dehydration check CK urine electrolytes renal ultrasound bladder scan for now Continue IV fluid avoid nephrotoxic medication (7) Hyperlipidemia: Qualifiers: Hyperlipidemia type: mixed hyperlipidemia Qualified Code(s): E78.2 - Mixed hyperlipidemia Code(s): E78.5 - Hyperlipidemia, unspecified Status: Acute Assessment and Plan: Continue current treatment (8) Benign essential hypertension: Code(s): I10 - Essential (primary) hypertension Status: Acute Assessment and Plan: Added p.r.n. hydralazine pending home medication reconciliation Subjective Date/time seen: 07/10/22 11:40 no new complaints Exam Narrative: GENERAL: Well appearing, well-nourished, non-toxic, in no acute distress. HEAD: Normocephalic, atraumatic. NECK: Supple. No adenopathy, no masses. RESPIRATORY: Airway patent, respirations nonlabored. Clear to auscultation bilaterally, no rales, rhonchi, wheezing. CARDIOVASCULAR: Regular rate and rhythm without murmurs, rubs, or gallops. Peripheral pulses 2+ and equal bilaterally. ABDOMINAL: Soft, nontender, nondistended, no hepatosplenomegaly. Normoactive BS. MUSCULOSKELETAL: Left foot in dressing examined by the ER physician SKIN: Warm, dry, normal color. No rashes. NEURO: A&O X3. Moves all extremities PSYCHIATRIC: Appropriate mood and affect. Normal interaction. Objective Data Vital Signs Vital Signs: Vital Signs - 24 hr 07/09/22 14:00 07/09/22 22:00 07/09/22 21:03 Temperature 97.8 F 96.9 F L Pulse Rate 63 61 Respiratory Rate 20 17 Blood Pressure 130/59 L 193/58 H Pulse Oximetry 96 99 Oxygen Delivery Room Air 07/10/22 06:00 07/10/22 08:00 Temperature 97.4 F L Pulse Rate 58 L Respiratory Rate 16 Blood Pressure 147/61 H Pulse Oximetry 98 Oxygen Delivery Room Air Intake/Output Intake/Output: Intake & Output 07/07/22 07/08/22 07/09/22 07/10/22 23:59 23:59 23:59 23:59 Intake Total 540 3340 3720 250 Output Total 2600 851 500 Balance 353 062 5914 -250 Meds/Results Medications: Active Medications Generic Name Dose Route Start Last Admin Trade Name Freq PRN Reason Stop Dose Admin Acetaminophen 650 mg 07/07/22 20:05 Acetaminophen 325 M
[2022-07-10 12:12] LABS: Glucose Point of Care 336 mg/dl (65-105)
[2022-07-10] MEDS: INSULIN ASPART (*BKC) 100 UNITS/ML SUB-Q ×2 (12:24→17:27)
[2022-07-10 14:00] VITALS: BP 153/73; PULSE 58; RESP 20; TEMP 36.1; O2SAT 99
[2022-07-10] MEDS: metroNIDAZOLE 500 MG/ISO 100ML 500 MG/100 ML BAG 100 MG IVPB (14:06)
[2022-07-10] MEDS: SODIUM CHLORIDE 0.9% IV 1,000 ML 100 ML IV CONT (16:00)
[2022-07-10 17:15] LABS: Glucose Point of Care 214 mg/dl (65-105)
[2022-07-10 20:15] LABS: Glucose Point of Care 215 mg/dl (65-105)
[2022-07-10] MEDS: GABAPENTIN 300 MG CAPSULE PO (20:54)
[2022-07-10] MEDS: INSULIN GLARGINE (*BKC) 100 UNITS/ML 10 UNITS SUB-Q (20:58)
[2022-07-10 22:00] VITALS: BP 136/67; PULSE 57; RESP 17; TEMP 36.3; O2SAT 97
[2022-07-11] VITALS (13 sets, daily range): BP systolic 104–170; BP diastolic 58–91; PULSE 56–66; RESP 14–22; TEMP 36.1–36.9; O2SAT 95–100
[2022-07-11] MEDS: metroNIDAZOLE 500 MG/ISO 100ML 500 MG/100 ML BAG 125 MG IVPB ×3 (01:22→19:55)
[2022-07-11 02:46] LABS: Vancomycin Trough 15.8 ug/mL (10.0-20.0)
[2022-07-11] MEDS: traMADol HCL (*CRX) 50 MG TABLET PO ×3 (03:49→20:10)
[2022-07-11] MEDS: SALINE LOCK FLUSH 10 ML IV PUSH ×3 (05:46→23:26)
[2022-07-11] MEDS: SODIUM CHLORIDE 0.9% IV 1,000 ML 100 ML IV CONT (07:23)
[2022-07-11 08:05] LABS: Glucose Point of Care 259 mg/dl (65-105)
[2022-07-11] MEDS: INSULIN ASPART (*BKC) 100 UNITS/ML SUB-Q ×3 (08:13→23:23)
[2022-07-11] MEDS: NEBIVOLOL HCL 5 MG TABLET 10 MG PO (09:08)
[2022-07-11] MEDS: INDAPAMIDE 2.5 MG TABLET PO (09:09)
--- NOTE | 2022-07-11 10:42 | WPDHPUPDATE1 ---
History and Physical Update Update Date/Time: 07/11/22 10:42 History and Physical has been reviewed, including an updated exam of the patient. There are NO changes in the patient's condition. Risks, benefits, and alternatives have been discussed and questions answered. Patient agrees to proceed with procedure.
[2022-07-11] MEDS: LACTATED RINGERS 1,000 ML 30 ML IV CONT (11:10)
--- NOTE | 2022-07-11 11:18 | PM.IMPN ---
Progress Note: A&P Assessment and Plan (1) Gangrenous toe: Code(s): I96 - Gangrene, not elsewhere classified Status: Acute Assessment and Plan: orthopedics following. Per patient plan to do an amputation Artery Doppler of lower extremity noted (2) Cellulitis of left foot: Code(s): L03.116 - Cellulitis of left lower limb Status: Acute Assessment and Plan: IV vancomycin IV cefepime IV Flagyl (3) Ulcer of left foot due to type 2 diabetes mellitus: Code(s): E11.621 - Type 2 diabetes mellitus with foot ulcer; L97.529 - Non-pressure chronic ulcer of other part of left foot with unspecified severity Status: Acute Assessment and Plan: Wound care consult IV antibiotics (4) Diabetes mellitus with hyperglycemia, with long-term current use of insulin: Qualifiers: Diabetes mellitus type: type 2 Qualified Code(s): E11.65 - Type 2 diabetes mellitus with hyperglycemia; Z79.4 - care home (current) use of insulin Code(s): E11.65 - Type 2 diabetes mellitus with hyperglycemia; Z79.4 - care home (current) use of insulin Status: Acute Assessment and Plan: Pending home medication reconciliation I started insulin sliding scale (5) Hx of CABG: Code(s): Z95.1 - Presence of aortocoronary bypass graft Status: Acute Assessment and Plan: Pending home medication reconciliation (6) CKD (chronic kidney disease): Qualifiers: Chronic kidney disease stage: stage 1 Qualified Code(s): N18.1 - Chronic kidney disease, stage 1 Code(s): N18.9 - Chronic kidney disease, unspecified Status: Acute Assessment and Plan: Acute on top of chronic renal failure probably related to dehydration check CK urine electrolytes renal ultrasound bladder scan for now Continue IV fluid avoid nephrotoxic medication (7) Hyperlipidemia: Qualifiers: Hyperlipidemia type: mixed hyperlipidemia Qualified Code(s): E78.2 - Mixed hyperlipidemia Code(s): E78.5 - Hyperlipidemia, unspecified Status: Acute Assessment and Plan: Continue current treatment (8) Benign essential hypertension: Code(s): I10 - Essential (primary) hypertension Status: Acute Assessment and Plan: Added p.r.n. hydralazine pending home medication reconciliation Subjective Date/time seen: 07/11/22 11:18 doing well, no new complaints Exam Narrative: GENERAL: Well appearing, well-nourished, non-toxic, in no acute distress. HEAD: Normocephalic, atraumatic. NECK: Supple. No adenopathy, no masses. RESPIRATORY: Airway patent, respirations nonlabored. Clear to auscultation bilaterally, no rales, rhonchi, wheezing. CARDIOVASCULAR: Regular rate and rhythm without murmurs, rubs, or gallops. Peripheral pulses 2+ and equal bilaterally. ABDOMINAL: Soft, nontender, nondistended, no hepatosplenomegaly. Normoactive BS. MUSCULOSKELETAL: Left foot in dressing examined by the ER physician SKIN: Warm, dry, normal color. No rashes. NEURO: A&O X3. Moves all extremities PSYCHIATRIC: Appropriate mood and affect. Normal interaction. Objective Data Vital Signs Vital Signs: Vital Signs - 24 hr 07/10/22 14:00 07/10/22 22:00 07/10/22 20:54 Temperature 97.0 F L 97.3 F L Pulse Rate 58 L 57 L Respiratory Rate 20 17 Blood Pressure 153/73 H 136/67 Pulse Oximetry 99 97 Oxygen Delivery Room Air 07/11/22 06:00 07/11/22 09:08 07/11/22 11:03 Temperature 98.5 F 98.1 F Pulse Rate 63 64 60 Respiratory Rate 16 16 Blood Pressure 151/60 H 170/84 H Pulse Oximetry 95 99 Oxygen Delivery Room Air Intake/Output Intake/Output: Intake & Output 07/08/22 07/09/22 07/10/22 07/11/22 23:59 23:59 23:59 23:59 Intake Total 3340 3720 2500 1250 Output Total 2600 851 1000 600 Balance 740 2869 1500 650 Meds/Results Medications: Active Medications Generic Name Dose Route Start Last Admin Trade Name Freq PRN Reason Stop Dose Admin
--- NOTE | 2022-07-11 11:33 | WPDANESEPPF ---
Anes - Initial Pre Proc Eval Procedure: Operation Date: 07/11/22 12:00 Proposed Procedures p Debridement Left Diabetic Foot Ulcer, - Jeremiah Carey MD s Left Transmetatarsal Amputation - Jeremiah Carey MD Date/Time: 07/11/22 11:33 Surgeon: Madhuri Angela MD Pre Op Diagnosis: Left foot infection, gangrene of toe Patient Data Age: 77 Gender: M Height: 1.75 m Weight: 96 kg Last Vital Signs Temp 36.7 C 07/11/22 11:03 Pulse 60 07/11/22 11:03 Resp 16 07/11/22 11:03 BP 170/84 H 07/11/22 11:03 Pulse Ox 99 07/11/22 11:03 O2 Del Method Room Air 07/11/22 11:03 Allergies Allergy/AdvReac Type Severity Reaction Status Date / Time Penicillins Allergy Unknown Hives Verified 12/01/21 10:53 Home Medications Medication Instructions Recorded Confirmed Type omega-3 fatty acids 1,000 mg 2,000 mg PO BID 08/06/19 07/07/22 History capsule (Fish Oil Concentrate) flash glucose scanning reader #1 ea 12/30/20 07/07/22 Rx (FreeStyle Yohannes 2 [place]) flash glucose sensor (FreeStyle #6 ea 12/30/20 07/07/22 Rx Yohannes 2 Sensor kit) blood sugar diagnostic (OneTouch #100 ea 03/11/21 07/07/22 Rx Verio test strips) chromium picolinate 1,000 mcg 1,000 mcg PO DAILY 04/13/21 07/07/22 History tablet ginkgo biloba 120 mg tablet 60 mg PO ONCE 04/13/21 07/07/22 History saw palmetto 450 mg capsule 450 mg PO ONCE 04/13/21 07/07/22 History zinc 50 mg tablet 50 mg PO DAILY 04/13/21 07/07/22 History insulin aspar prot-insulin aspart See Rx Instructions .Route 09/01/21 07/07/22 Rx 100 unit/mL (70-30) subcutaneous .COMPLEX #45 mL pen (Novolog Mix 70-30FlexPen U-100) pen needle, diabetic 32 gauge x See Rx Instructions .Route 12/01/21 07/07/22 Rx 1/4 (Novofine 32) .COMPLEX #100 ea Ozempic 0.25 mg or 0.5 mg (2 See Rx Instructions .Route 01/24/22 07/07/22 Rx mg/1.5 mL) subcutaneous pen .COMPLEX #1.5 mL injector (semaglutide) cefdinir 300 mg capsule 300 mg PO Q12H 7 days #14 caps 07/05/22 07/07/22 Rx doxycycline hyclate 100 mg capsule 100 mg PO BID 10 days #20 caps 07/05/22 07/07/22 Rx aspirin 81 mg capsule 81 mg PO DAILY 07/07/22 07/07/22 History dapagliflozin 5 mg tablet (Farxiga) 5 mg PO DAILY 07/07/22 07/07/22 History irbesartan 300 mg tablet 300 mg PO DAILY 07/07/22 07/07/22 History nebivolol 10 mg tablet 10 mg PO DAILY 07/07/22 07/07/22 History rosuvastatin 40 mg tablet 40 mg PO DAILY 07/07/22 07/07/22 History indapamide 2.5 mg tablet See Rx Instructions .Route 07/11/22 Rx .COMPLEX #30 tabs Laboratory Tests 07/10/22 07/10/22 07/10/22 11:44 16:57 19:51 POC Capillary Glucose 336 mg/dl H mg/dl 214 mg/dl H mg/dl 215 mg/dl H mg/dl (65-105) (65-105) (65-105) Vancomycin Trough 07/11/22 07/11/22 01:50 07:27 POC Capillary Glucose 259 mg/dl H mg/dl (65-105) Vancomycin Trough 15.8 ug/mL ug/mL (10.0-20.0) Patient hx anesthesia problems: none Family hx anesthesia problems: none Results Review: All pre-operative results and documents have been reviewed as part of the pre-operative evaluation. [facility] Past Medical History Medical History Abnormal electrocardiography Abnormal finding of blood chemistry, unspecified Amputation of toe Anxiety ASHD (arteriosclerotic heart disease) Benign essential hypertension BMI 34.0-34.9,adult CKD (chronic kidney disease) Color blind Diabetes mellitus type 2, insulin dependent Diabetes mellitus with hyperglycemia, with long-term current use of insulin Diabetes mellitus with neuropathy Diabetic foot ulcer Diabetic ulcer of right foot associated with diabetes mellitus due to underlying condition Elevated homocysteine Elevated PSA Encounter for postoperative care Encounter for preventive health examination Encounter for routine adult health examination without abnormal findings Hallux valgus Hearing loss History of prostate cancer Hyp
[2022-07-11] MEDS: ceFAZolin SODIUM 1 GM VIAL (12:56)
[2022-07-11] MEDS: VANCOMYCIN HCL 1,000 MG VIAL 1000 MG TOPICAL (13:14)
[2022-07-11 13:46] LABS: Glucose Point of Care 225 mg/dl (65-105)
--- NOTE | 2022-07-11 13:48 | W.PM.PROC2 ---
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 Presents for operative treatment. Findings Plantar ulcer with infection involving the soft tissue. Osteomyelitis 2nd metatarsophalangeal joint and 2nd toe with gangrene. Description of Procedure Patient identified in the preoperative holding. Informed consent given. Operative extremity marked. Patient received intravenous antibiotics. Patient brought to the operating room where underwent general anesthetic by anesthesia team. Positioned supine on operating room table. Time-out performed confirming the patient, site of the surgery and the plan. left foot prepped draped usual sterile surgical fashion using a ChloraPrep skin solution prep. Esmarch bandage wrapped at the ankle as a tourniquet. Fifteen blade knife used to ellipse the skin at the base of the toes. Plantar ulcer under the 2nd toe with purulent drainage. This was debrided with sharp excision of skin, subcutaneous tissue and muscle. Fifteen blade knife and rongeur used. Infected and devitalized tissue sharply excised and passed off. Wound irrigated with antibiotic solution. Skin closed with 0 Prolene interrupted suture. The soft tissue was then dissected from the 1st 2nd and 3rd metatarsals as well as the base of the 4th toe with a 15 blade knife. Hemostasis controlled electrocautery. Tendon material was retracted and sharply transected. Sagittal saw used to then resect the bone at this level. Distal metatarsals metatarsophalangeal joints and toes then brought out of the wound and sharply transected from the soft tissue and passed off as specimen. Any devitalized tissue removed with 15 blade knife. Wound thoroughly irrigated with antibiotic solution. Vancomycin powder placed. Wound then closed with 2 Vicryl interrupted suture for subcutaneous tissue and 0 Prolene for the skin. Esmarch tourniquet removed. Sterile dressing applied. The patient was then woken from anesthesia, extubated and taken to the recovery room in stable condition. All sponge, needle, instrument counts were correct at the end of the case. Estimated Blood Loss 5 Tourniquet Time 45 Urine Output 600 Drains No Packing No Pathology Yes ( Transmetatarsal amputation) Complications None Condition Stable Disposition PACU
[2022-07-11] MEDS: metroNIDAZOLE 500 MG/ISO 100ML 500 MG/100 ML BAG 100 MG IVPB (14:00)
[2022-07-11] MEDS: fentaNYL CITRATE INJ (*CRX) 100 MCG/2 ML VIAL 25 MCG IV PUSH ×3 (14:07→14:27)
[2022-07-11] MEDS: INSULIN HUMAN REGULAR (*BKC) 100 UNITS/ML 6 UNITS SUB-Q (14:13)
[2022-07-11] MEDS: KCL 20MEQ/0.9% SOD CHL 1,000 ML 125 ML IV CONT (16:39)
[2022-07-11] MEDS: OMEGA 3 POLYUNSAT FATTY ACIDS 1 GM CAP 2 GM PO (16:39)
[2022-07-11 17:23] LABS: Glucose Point of Care 295 mg/dl (65-105)
[2022-07-11] MEDS: FAMOTIDINE 20 MG TABLET PO (20:04)
[2022-07-11] MEDS: GABAPENTIN 300 MG CAPSULE PO (20:05)
[2022-07-11 21:03] LABS: Glucose Point of Care 453 mg/dl (65-105)
[2022-07-11] MEDS: INSULIN GLARGINE (*BKC) 100 UNITS/ML 10 UNITS SUB-Q (21:06)
[2022-07-11] MEDS: INSULIN ASPART (*BKC) 100 UNITS/ML 6 UNITS SUB-Q (21:06)
[2022-07-11 23:04] LABS: Glucose Point of Care 356 mg/dl (65-105)
[2022-07-12] VITALS (7 sets, daily range): BP systolic 117–150; BP diastolic 61–72; PULSE 50–56; RESP 14–20; TEMP 36–36.3; O2SAT 99–100
[2022-07-12] MEDS: traMADol HCL (*CRX) 50 MG TABLET PO ×3 (01:04→21:42)
[2022-07-12 01:11] LABS: Glucose Point of Care 346 mg/dl (65-105)
[2022-07-12] MEDS: metroNIDAZOLE 500 MG/ISO 100ML 500 MG/100 ML BAG 125 MG IVPB ×4 (01:59→20:22)
[2022-07-12] MEDS: INSULIN HUMAN REGULAR (*BKC) 100 UNITS/ML 8 UNITS SUB-Q (02:20)
[2022-07-12 04:52] LABS: Basophils Absolute Auto 0.1 K/mm3 (0.0-0.1); Basophils Percent Auto 0.5 % (0.2-1.2); Eosinophils Absolute Auto 0.2 K/mm3 (0-0.3); Eosinophils Percent Auto 1.6 % (0-4.4); Hematocrit 42.1 % (42.0-52.0); Hemoglobin 13.8 g/dL (14.0-18.0); Immature Granulocyte Absolute 0.17 K/mm3 (0.00-0.031); Immature Granulocyte Percent A 1.2 % (0-0.5); Lymphocytes Absolute Auto 1.65 K/mm3 (0.9-3.2); Lymphocytes Percent Auto 11.3 % (18.3-44.2); Mean Corpuscular HGB Conc 32.8 g/dl (32-36); Mean Corpuscular Hemoglobin 28.2 pg (26-34); Mean Corpuscular Volume 85.9 fl (80-100); Mean Platelet Volume 9.9 fl (7.4-10.4); Monocytes Absolute Auto 1.1 K/mm3 (0.1-0.6); Monocytes Percent Auto 7.4 % (2.6-8.5); Neutrophils Absolute Auto 11.4 K/mm3 (1.3-6.7); Platelet Count Result 318 k/mm3 (150-375); Red Cell Distribution Width 14.4 % (11.5-14.5); White Blood Count 14.6 K/mm3 (4.5-10.0)
[2022-07-12 05:11] LABS: Anion Gap 5 mmol/L (8-16); Blood Urea Nitrogen 27 mg/dL (9-20); Carbon Dioxide 24 mmol/L (22-30); Chloride 101 mmol/L (98-107); Estimated CRCL calculation 56 ml/min; Estimated Glomerular Filt Rate > 60; Glucose 270 mg/dL (65-110); Potassium 3.4 mmol/L (3.4-5.0); Sodium 130 mmol/L (137-145)
[2022-07-12] MEDS: SALINE LOCK FLUSH 10 ML IV PUSH ×3 (06:51→21:18)
[2022-07-12 08:03] LABS: Glucose Point of Care 222 mg/dl (65-105)
[2022-07-12] MEDS: INSULIN ASPART (*BKC) 100 UNITS/ML SUB-Q ×2 (08:32→17:24)
[2022-07-12] MEDS: NEBIVOLOL HCL 5 MG TABLET 10 MG PO (08:33)
[2022-07-12] MEDS: OMEGA 3 POLYUNSAT FATTY ACIDS 1 GM CAP 2 GM PO ×2 (08:34→17:24)
[2022-07-12] MEDS: ZINC SULFATE 220 MG CAPSULE PO (08:34)
[2022-07-12] MEDS: INDAPAMIDE 2.5 MG TABLET PO (08:34)
[2022-07-12] MEDS: FAMOTIDINE 20 MG TABLET PO ×2 (08:34→20:29)
[2022-07-12] MEDS: ROSUVASTATIN 10 MG TABLET 40 MG PO (08:34)
[2022-07-12] MEDS: ASPIRIN 81 MG CHEWABLE TABLET PO (09:55)
[2022-07-12 11:41] LABS: Glucose Point of Care 196 mg/dl (65-105)
--- NOTE | 2022-07-12 12:16 | PM.IMPN ---
Progress Note: A&P Assessment and Plan (1) Gangrenous toe: Code(s): I96 - Gangrene, not elsewhere classified Status: Acute Assessment and Plan: orthopedics following. Postop day 1 from amputation. Question need for long-term antibiotics. On discharge margins were clean antibiotics can likely be discharged. Continue PTOT. Likely discharge 1-2 days (2) Cellulitis of left foot: Code(s): L03.116 - Cellulitis of left lower limb Status: Acute Assessment and Plan: IV vancomycin IV cefepime IV Flagyl (3) Ulcer of left foot due to type 2 diabetes mellitus: Code(s): E11.621 - Type 2 diabetes mellitus with foot ulcer; L97.529 - Non-pressure chronic ulcer of other part of left foot with unspecified severity Status: Acute Assessment and Plan: Wound care (4) Diabetes mellitus with hyperglycemia, with long-term current use of insulin: Qualifiers: Diabetes mellitus type: type 2 Qualified Code(s): E11.65 - Type 2 diabetes mellitus with hyperglycemia; Z79.4 - divisional human resources director (current) use of insulin Code(s): E11.65 - Type 2 diabetes mellitus with hyperglycemia; Z79.4 - divisional human resources director (current) use of insulin Status: Acute Assessment and Plan: monitor blood sugar, continue insulin (5) Hx of CABG: Code(s): Z95.1 - Presence of aortocoronary bypass graft Status: Acute Assessment and Plan: Pending home medication reconciliation (6) CKD (chronic kidney disease): Qualifiers: Chronic kidney disease stage: stage 1 Qualified Code(s): N18.1 - Chronic kidney disease, stage 1 Code(s): N18.9 - Chronic kidney disease, unspecified Status: Acute Assessment and Plan: creatinine stable (7) Hyperlipidemia: Qualifiers: Hyperlipidemia type: mixed hyperlipidemia Qualified Code(s): E78.2 - Mixed hyperlipidemia Code(s): E78.5 - Hyperlipidemia, unspecified Status: Acute Assessment and Plan: Continue current treatment (8) Benign essential hypertension: Code(s): I10 - Essential (primary) hypertension Status: Acute Assessment and Plan: monitor blood pressure. Subjective Date/time seen: 07/12/22 12:16 Postop day 1, pain controlled Exam Narrative: GENERAL: Well appearing, well-nourished, non-toxic, in no acute distress. HEAD: Normocephalic, atraumatic. NECK: Supple. No adenopathy, no masses. RESPIRATORY: Airway patent, respirations nonlabored. Clear to auscultation bilaterally, no rales, rhonchi, wheezing. CARDIOVASCULAR: Regular rate and rhythm without murmurs, rubs, or gallops. Peripheral pulses 2+ and equal bilaterally. ABDOMINAL: Soft, nontender, nondistended, no hepatosplenomegaly. Normoactive BS. MUSCULOSKELETAL: Left foot in dressing examined by the ER physician SKIN: Warm, dry, normal color. No rashes. NEURO: A&O X3. Moves all extremities PSYCHIATRIC: Appropriate mood and affect. Normal interaction. Objective Data Vital Signs Vital Signs: Vital Signs - 24 hr 07/11/22 13:40 07/11/22 13:55 07/11/22 14:10 Temperature 97 F L Pulse Rate 63 60 56 L Respiratory Rate 18 16 16 Blood Pressure 104/58 L 149/91 H 146/71 H Pulse Oximetry 98 100 100 Oxygen Delivery Simple Face Mask Simple Face Mask Simple Face Mask Oxygen Flow Rate 8 8 8 07/11/22 14:25 07/11/22 14:40 07/11/22 15:05 Temperature 97.6 F Pulse Rate 60 56 L 57 L Respiratory Rate 20 16 22 H Blood Pressure 142/72 H 136/66 148/81 H Pulse Oximetry 100 99 100 Oxygen Delivery Room Air Room Air Oxygen Flow Rate 07/11/22 15:20 07/11/22 16:40 07/11/22 15:50 Temperature 97.5 F L 97.6 F Pulse Rate 56 L 56 L Respiratory Rate 22 H 20 Blood Pressure 147/68 H 151/70 H Pulse Oximetry 99 100 Oxygen Delivery Room Air Oxygen Flow Rate 07/11/22 16:50 07/11/22 20:41 07/12/22 00:09 Temperature 97.4 F L 97.6 F 97.4 F L Pulse Rate 60 66 53 L Respiratory Rate 22 H 14 14
--- NOTE | 2022-07-12 12:42 | PM.PNORT ---
Progress Note: A&P Assessment and Plan (1) Gangrenous toe: Code(s): I96 - Gangrene, not elsewhere classified Status: Acute Assessment and Plan: Postoperative day 1 left transmetatarsal amputation. Wound closed. Continue with daily dressing changes. Antibiotic coverage. Home with home health when medically stable. Subjective Subjective Date/Time Seen: 07/12/22 12:42 Post Op day: 1 Principal diagnosis: Left foot osteomyelitis Interval history: patient rates pain 2/10. Awake and alert. No new complaints. Exam Extrem: Other: Dressing changed left foot. Transmetatarsal incision with sanguinous drainage. Moderate swelling at the foot. No purulent drainage or erythema. Objective Data Vital Signs Vital Signs: Vital Signs - 24 hr 07/11/22 13:40 07/11/22 13:55 07/11/22 14:10 Temperature 97 F L Pulse Rate 63 60 56 L Respiratory Rate 18 16 16 Blood Pressure 104/58 L 149/91 H 146/71 H Pulse Oximetry 98 100 100 Oxygen Delivery Simple Face Mask Simple Face Mask Simple Face Mask Oxygen Flow Rate 8 8 8 07/11/22 14:25 07/11/22 14:40 07/11/22 15:05 Temperature 97.6 F Pulse Rate 60 56 L 57 L Respiratory Rate 20 16 22 H Blood Pressure 142/72 H 136/66 148/81 H Pulse Oximetry 100 99 100 Oxygen Delivery Room Air Room Air Oxygen Flow Rate 07/11/22 15:20 07/11/22 16:40 07/11/22 15:50 Temperature 97.5 F L 97.6 F Pulse Rate 56 L 56 L Respiratory Rate 22 H 20 Blood Pressure 147/68 H 151/70 H Pulse Oximetry 99 100 Oxygen Delivery Room Air Oxygen Flow Rate 07/11/22 16:50 07/11/22 20:41 07/12/22 00:09 Temperature 97.4 F L 97.6 F 97.4 F L Pulse Rate 60 66 53 L Respiratory Rate 22 H 14 14 Blood Pressure 138/70 151/70 H 148/72 H Pulse Oximetry 100 100 100 Oxygen Delivery Oxygen Flow Rate 07/11/22 20:18 07/12/22 04:41 07/12/22 08:33 Temperature 96.9 F L Pulse Rate 54 L 56 L Respiratory Rate 14 Blood Pressure 146/70 H Pulse Oximetry 100 Oxygen Delivery Room Air Oxygen Flow Rate 07/12/22 08:00 07/12/22 08:41 07/12/22 12:00 Temperature 97.1 F L 96.8 F L Pulse Rate 53 L 50 L Respiratory Rate 18 20 Blood Pressure 150/69 H 138/61 Pulse Oximetry 100 100 Oxygen Delivery Room Air Oxygen Flow Rate Intake/Output Intake/Output: Intake & Output 07/09/22 07/10/22 07/11/22 07/12/22 23:59 23:59 23:59 23:59 Intake Total 3720 2500 3100 600 Output Total 851 1000 1875 1000 Balance 2869 1500 1225 -400 Meds/Results Medications: Active Medications Generic Name Dose Route Start Last Admin Trade Name Freq PRN Reason Stop Dose Admin Acetaminophen 650 mg 07/07/22 20:05 Acetaminophen 325 Mg Tablet PO Q6H PRN MILD pain Aspirin 81 mg 07/08/22 08:00 07/12/22 09:55 Aspirin 81 Mg Chewable Tablet PO 81 mg DAILY@0800 MAGGIE Administration Bisacodyl 5 mg 07/07/22 20:09 Bisacodyl 5 Mg Tablet Ec PO DAILY PRN Constipation Dextrose 12.5 gm 07/07/22 20:09 Dextrose 50% 25 Gm/50 Ml Syringe IV PUSH PRN PRN Hypoglycemia Protocol Famotidine 20 mg 07/07/22 21:00 07/12/22 08:34 Famotidine 20 Mg Tablet PO 20 mg Q12HR MAGGIE Administration Fish Oil 2 gm 07/08/22 09:00 07/12/22 08:34 [place] 3 Polyunsat Fatty Acids 1 Gm Cap PO 2 gm BID MAGGIE Administration Gabapentin 300 mg 07/08/22 21:00 07/11/22 20:05 Gabapentin 300 Mg Capsule PO 300 mg QHS MAGGIE Administration Glucagon 1 mg 07/07/22 20:09 Glucagon For Inj 1 Mg Vial IM PRN PRN Hypoglycemia Protocol Glucose 15 gm 07/07/22 20:09 Glucose Oral Gel 15 Gm Of Glucse In 37.5 Gm Tube PO PRN PRN Hypoglycemia Protocol Heparin Sodium (Porcine) 5,000 units 07/07/22 21:00 07/08/22 09:30 Heparin Sodium 5,000 Units/Ml Vial SUB-Q 5,000 units Q12HR MAGGIE Administration Hydralazine HCl 10 mg 07/07/22 20:05 Hydralazine Hcl 20 Mg/Ml Vial IV PUSH Q6H PRN Hy
[2022-07-12 17:00] LABS: Glucose Point of Care 257 mg/dl (65-105)
[2022-07-12 20:07] LABS: Glucose Point of Care 302 mg/dl (65-105)
[2022-07-12] MEDS: INSULIN GLARGINE (*BKC) 100 UNITS/ML 10 UNITS SUB-Q (20:17)
[2022-07-12] MEDS: GABAPENTIN 300 MG CAPSULE PO (20:29)
[2022-07-12 20:37] LABS: Osmolality, Urine 493 mOsm/kg (50-1200)
[2022-07-12] MEDS: HEPARIN SODIUM 5,000 UNITS/ML VIAL 5000 UNITS SUB-Q (21:17)
[2022-07-13] MEDS: metroNIDAZOLE 500 MG/ISO 100ML 500 MG/100 ML BAG 125 MG IVPB ×3 (01:26→14:43)
[2022-07-13] MEDS: SALINE LOCK FLUSH 10 ML IV PUSH ×3 (05:49→21:52)
[2022-07-13 05:53] VITALS: BP 168/82; PULSE 61; RESP 14; TEMP 36.1; O2SAT 100
[2022-07-13 07:40] LABS: Glucose Point of Care 200 mg/dl (65-105)
[2022-07-13] MEDS: FAMOTIDINE 20 MG TABLET PO ×2 (09:04→21:29)
[2022-07-13] MEDS: ROSUVASTATIN 10 MG TABLET 40 MG PO (09:04)
[2022-07-13] MEDS: INDAPAMIDE 2.5 MG TABLET PO (09:04)
[2022-07-13] MEDS: OMEGA 3 POLYUNSAT FATTY ACIDS 1 GM CAP 2 GM PO ×2 (09:04→17:23)
[2022-07-13] MEDS: HEPARIN SODIUM 5,000 UNITS/ML VIAL 5000 UNITS SUB-Q ×2 (09:04→21:29)
[2022-07-13] MEDS: NEBIVOLOL HCL 5 MG TABLET 10 MG PO (09:04)
[2022-07-13] MEDS: ZINC SULFATE 220 MG CAPSULE PO (09:04)
[2022-07-13] MEDS: ASPIRIN 81 MG CHEWABLE TABLET PO (09:04)
[2022-07-13 11:32] LABS: Glucose Point of Care 339 mg/dl (65-105)
[2022-07-13] MEDS: INSULIN ASPART (*BKC) 100 UNITS/ML SUB-Q ×2 (12:19→17:23)
[2022-07-13 13:45] VITALS: BP 140/63; PULSE 58; RESP 14; TEMP 36.2; O2SAT 100
[2022-07-13 16:18] LABS: Glucose Point of Care 271 mg/dl (65-105)
--- NOTE | 2022-07-13 16:41 | PM.IMPN ---
Progress Note: A&P Assessment and Plan (1) Osteomyelitis: Code(s): M86.9 - Osteomyelitis, unspecified Status: Acute Assessment and Plan: Patient presents with infected left toe. MRI shows osteomyelitis involving the left 3rd proximal phalanx and septic arthritis involving the 3rd metatarsophalangeal joint. Orthopedics consulted. Patient underwent excisional debridement of the left foot diabetic ulcer including muscle layer and transmetatarsal amputation. He is postop day 2 from amputation. Currently on IV antibiotics. Tolerating PT and OT. Will discuss with Orthopedics about the need for long-term IV antibiotics. Plan discharge tomorrow. Spoke with ortho who felt that the infection was contained and resected and that filler leaf cutter long IV abx were unnecessary. Plan for home with Flagyl and Cefdinir. Path is still pending (2) Septic arthritis: Code(s): M00.9 - Pyogenic arthritis, unspecified Status: Acute Assessment and Plan: As above (3) Acute kidney injury: Code(s): N17.9 - Acute kidney failure, unspecified Status: Acute Assessment and Plan: Cr elevated on admisison to 2.0 felt related to ATN from his infection. Cr better and was down to 1.1. Follow (4) Gangrenous toe: Code(s): I96 - Gangrene, not elsewhere classified Status: Acute Assessment and Plan: as above (5) Cellulitis of left foot: Code(s): L03.116 - Cellulitis of left lower limb Status: Acute Assessment and Plan: as above. Continue IV vancomycin IV cefepime IV Flagyl (6) Ulcer of left foot due to type 2 diabetes mellitus: Code(s): E11.621 - Type 2 diabetes mellitus with foot ulcer; L97.529 - Non-pressure chronic ulcer of other part of left foot with unspecified severity Status: Acute Assessment and Plan: continue routine postoperative wound care. (7) Diabetes mellitus with hyperglycemia, with long-term current use of insulin: Qualifiers: Diabetes mellitus type: type 2 Qualified Code(s): E11.65 - Type 2 diabetes mellitus with hyperglycemia; Z79.4 - jail (current) use of insulin Code(s): E11.65 - Type 2 diabetes mellitus with hyperglycemia; Z79.4 - terminal operations manager (current) use of insulin Status: Acute Assessment and Plan: A1c 9.6. The patient's blood glucose was reviewed on 07/13 Glucose poorly controlled. He adjusts his own 70/30 so will need clarification on this dosing. Lantus started so will advance the dose. Continue AccuCheks covering with sliding scale. Hypoglycemia protocol available as needed. Continue current medications. (8) Hx of CABG: Code(s): Z95.1 - Presence of aortocoronary bypass graft Status: Acute Assessment and Plan: Stable. Continue home medications of ASA, bystolic and crestor (9) CKD (chronic kidney disease): Qualifiers: Chronic kidney disease stage: stage 1 Qualified Code(s): N18.1 - Chronic kidney disease, stage 1 Code(s): N18.9 - Chronic kidney disease, unspecified Status: Acute Assessment and Plan: Creatinine stable now. Follow (10) Benign essential hypertension: Code(s): I10 - Essential (primary) hypertension Status: Acute Assessment and Plan: Patient's blood pressure was reviewed on 07/13 Blood pressure elevated at times but overall stable Will continue current medications. Subjective Date/time seen: 07/13/22 16:41 Interval history: 77yo male with DM here for left distal foot ulcer and found to have osteo of the 3rd proximal phalanx and septic arthritis Assuming care. Chart reviewed. Patient lives with his . He has been ambulating with a walker here. No nausea or vomiting. Some light diarrhea at times related to antibiotics. No chest pain or shortness of breath. He feels ready for discharge. He does have some irritation on his tongue that he thinks it may b
[2022-07-13] MEDS: metroNIDAZOLE 500 MG/ISO 100ML 500 MG/100 ML BAG 100 MG IVPB (20:16)
[2022-07-13 20:58] LABS: Glucose Point of Care 273 mg/dl (65-105)
[2022-07-13 21:27] VITALS: BP 142/73; PULSE 66; RESP 18; TEMP 36.9; O2SAT 99
[2022-07-13] MEDS: GABAPENTIN 300 MG CAPSULE PO (21:28)
[2022-07-13] MEDS: INSULIN GLARGINE (*BKC) 100 UNITS/ML 14 UNITS SUB-Q (21:29)
[2022-07-14] MEDS: metroNIDAZOLE 500 MG/ISO 100ML 500 MG/100 ML BAG 100 MG IVPB ×2 (02:11→08:45)
[2022-07-14 05:39] VITALS: BP 149/59; PULSE 60; RESP 18; TEMP 36.3; O2SAT 97
[2022-07-14 06:39] LABS: Estimated CRCL calculation 45 ml/min; Estimated Glomerular Filt Rate 49
[2022-07-14 07:43] LABS: Glucose Point of Care 269 mg/dl (65-105)
--- NOTE | 2022-07-14 08:22 | PCNWS ---
Weekly nutritional screen. Patient is tolerating current diet with adequate intake. No weight loss reported. No nutritional needs at this time.
[2022-07-14 08:27] VITALS: PULSE 72
[2022-07-14] MEDS: NEBIVOLOL HCL 5 MG TABLET 10 MG PO (08:27)
[2022-07-14] MEDS: OMEGA 3 POLYUNSAT FATTY ACIDS 1 GM CAP 2 GM PO (08:27)
[2022-07-14] MEDS: ASPIRIN 81 MG CHEWABLE TABLET PO (08:29)
[2022-07-14] MEDS: HEPARIN SODIUM 5,000 UNITS/ML VIAL 5000 UNITS SUB-Q (08:29)
[2022-07-14] MEDS: ZINC SULFATE 220 MG CAPSULE PO (08:29)
[2022-07-14] MEDS: FAMOTIDINE 20 MG TABLET PO (08:29)
[2022-07-14] MEDS: INDAPAMIDE 2.5 MG TABLET PO (08:29)
[2022-07-14] MEDS: ROSUVASTATIN 10 MG TABLET 40 MG PO (08:29)
[2022-07-14] MEDS: INSULIN ASPART (*BKC) 100 UNITS/ML SUB-Q ×2 (08:30→12:51)
[2022-07-14] MEDS: ACETAMINOPHEN 325 MG TABLET 650 MG PO (08:46)
--- NOTE | 2022-07-14 09:28 | PCOTNOTE ---
Attempted to see patient this am, however patient kindly declined. Pt has no concerns as pertains to OT stating, Unfortunately, I've been through this before. It's really that I need to just figure out my insulin. I wasn't taking it properly at home, but they're gonna help me with that. Hopefully I get to go home, but that's up in the air. Pt stated all good things about his care and that all staff have had great attitudes.
[2022-07-14 11:46] LABS: Glucose Point of Care 297 mg/dl (65-105)
--- NOTE | 2022-07-14 13:26 | PM.DS ---
DS: Admitting Diagnosis Discharge Date 07/14/22 Admitting Diagnosis Necrotic left toe DS: Discharge Diagnosis Discharge Diagnosis (1) Osteomyelitis: Code(s): M86.9 - Osteomyelitis, unspecified Status: Acute (2) Septic arthritis: Code(s): M00.9 - Pyogenic arthritis, unspecified Status: Acute (3) Acute kidney injury: Code(s): N17.9 - Acute kidney failure, unspecified Status: Acute (4) Gangrenous toe: Code(s): I96 - Gangrene, not elsewhere classified Status: Acute (5) Cellulitis of left foot: Code(s): L03.116 - Cellulitis of left lower limb Status: Acute (6) Ulcer of left foot due to type 2 diabetes mellitus: Code(s): E11.621 - Type 2 diabetes mellitus with foot ulcer; L97.529 - Non-pressure chronic ulcer of other part of left foot with unspecified severity Status: Acute (7) Diabetes mellitus with hyperglycemia, with long-term current use of insulin: Qualifiers: Diabetes mellitus type: type 2 Qualified Code(s): E11.65 - Type 2 diabetes mellitus with hyperglycemia; Z79.4 - ferry terminal agent (current) use of insulin Code(s): E11.65 - Type 2 diabetes mellitus with hyperglycemia; Z79.4 - ferry terminal agent (current) use of insulin Status: Acute (8) Hx of CABG: Code(s): Z95.1 - Presence of aortocoronary bypass graft Status: Acute (9) CKD (chronic kidney disease): Qualifiers: Chronic kidney disease stage: stage 1 Qualified Code(s): N18.1 - Chronic kidney disease, stage 1 Code(s): N18.9 - Chronic kidney disease, unspecified Status: Acute (10) Benign essential hypertension: Code(s): I10 - Essential (primary) hypertension Status: Acute DS: Summary Hospital Course Reason for hospitalization: 77yo male with DM here for left distal foot ulcer and found to have osteomyelitis of the 3rd proximal phalanx and septic arthritis. Please see H&P for details Hospital Course: Patient presented with evidence of infected left toe.? MRI showed osteomyelitis involving the left 3rd proximal phalanx and septic arthritis involving the 3rd metatarsophalangeal joint.? He was started on on IV antibiotics. Orthopedics was consulted.? Patient underwent excisional debridement of the left foot diabetic ulcer including muscle layer and transmetatarsal amputation on 07/11.?PT and OT started which he tolerated well.?Discussed with Orthopedics about the need for long-term IV antibiotics; they felt that the infection was contained and resected and that watermaster IV abx were unnecessary. Flagyl and Cefdinir recommended. Path is still pending. Creatinine was elevated on admission to 2.0 felt related to ATN from his infection. Cr improved overall. A1c 9.6.? The patient's blood glucose was monitored with AccuCheks covering with sliding scale.? Hypoglycemia protocol was available as needed.?He overall did well and was able to be discharged home on 07/14/22. Status at Discharge Cognitive/behavioral status at discharge: Stable Time Spent with Patient Time attestation: Total time spent providing and/or coordinating discharge services: 35 minutes Time spent: Greater than 30 minutes Exam Narrative: AF 97.3 149/59 72 18 97% ra GENERAL: NARD siting up in chair. RESPIRATORY: Clear to auscultation bilaterally, nml RR CV: Regular rate and rhythm with occasional extra beats. ABDOMINAL: Soft, nontender, nondistended. Normoactive BS. MUSCULOSKELETAL: Left foot dressing clean and dry. Trace RLE edmea. Negative Lane's SKIN: Warm, dry NEURO: nonfocal PSYCHIATRIC: normal mood and affect DS: Data Data Completed and Pending Pending studies at discharge: Pending at discharge 07/11/22 13:10 Surgical [PTH] Routine Labs on day of discharge: Labs from last 24 hours 07/14/22 07/14/22 07/14/22 11:38 07:29 06:19 Creatinine 1.40 H Estim Creat Clear Calc 45 Estimated GFR 49 L POC Capillary Glucose 297
[2022-07-14 14:00] VITALS: BP 115/63; PULSE 64; RESP 18; TEMP 36.3; O2SAT 97
--- NOTE | 2022-07-14 15:38 | PM.PNORT ---
Progress Note: A&P Assessment and Plan (1) Gangrenous toe: Code(s): I96 - Gangrene, not elsewhere classified Status: Acute Assessment and Plan: POD #3: Left transmetatarsal amputation. Wound closed. Continue with daily dressing changes. Antibiotic coverage, transition to orals at discharge per medicine team. Home with home health when medically stable. F/U in the [facility] wound clinic. Subjective Subjective Date/Time Seen: 07/14/22 15:38 Post Op day: 3 Principal diagnosis: Left foot osteomyelitis Interval history: Patient denies pain. No new concerns. Ready to be discharged home today. Review of Systems Review of Systems: All systems reviewed & are unremarkable except as noted in HPI and below Exam Const: General: comfortable and no acute distress Resp: Effort & Inspection: normal respiratory effort Cardio: Rate: regular rate Rhythm: regular rhythm GI: GI Palp: Yes Soft to palpation and No Tenderness to palpation present (GI) Extrem: Other: Dressing changed left foot. Transmetatarsal incision with sanguinous drainage. Moderate swelling at the foot. No purulent drainage or erythema. Objective Data Vital Signs Vital Signs: Vital Signs - 24 hr 07/13/22 21:27 07/14/22 05:39 07/14/22 08:27 Temperature 36.9 C 36.3 C L Pulse Rate 66 60 72 Respiratory Rate 18 18 Blood Pressure 142/73 H 149/59 H Pulse Oximetry 99 97 07/14/22 14:00 Temperature 36.3 C L Pulse Rate 64 Respiratory Rate 18 Blood Pressure 115/63 Pulse Oximetry 97 Intake/Output Intake/Output: Intake & Output 07/11/22 07/12/22 07/13/22 07/14/22 23:59 23:59 23:59 23:59 Intake Total 3100 3980 2810 487 Output Total 1875 1325 1050 600 Balance 1225 2655 1760 -113 Meds/Results Medications: Active Medications Generic Name Dose Route Start Last Admin Trade Name Freq PRN Reason Stop Dose Admin Acetaminophen 650 mg 07/07/22 20:05 07/14/22 08:46 Acetaminophen 325 Mg Tablet PO 650 mg Q6H PRN Administration MILD pain Aspirin 81 mg 07/08/22 08:00 07/14/22 08:29 Aspirin 81 Mg Chewable Tablet PO 81 mg DAILY@0800 MAGGIE Administration Bisacodyl 5 mg 07/07/22 20:09 Bisacodyl 5 Mg Tablet Ec PO DAILY PRN Constipation Dextrose 12.5 gm 07/07/22 20:09 Dextrose 50% 25 Gm/50 Ml Syringe IV PUSH PRN PRN Hypoglycemia Protocol Famotidine 20 mg 07/07/22 21:00 07/14/22 08:29 Famotidine 20 Mg Tablet PO 20 mg Q12HR MAGGIE Administration Fish Oil 2 gm 07/08/22 09:00 07/14/22 08:27 [place] 3 Polyunsat Fatty Acids 1 Gm Cap PO 2 gm BID MAGGIE Administration Gabapentin 300 mg 07/08/22 21:00 07/13/22 21:28 Gabapentin 300 Mg Capsule PO 300 mg QHS MAGGIE Administration Glucagon 1 mg 07/07/22 20:09 Glucagon For Inj 1 Mg Vial IM PRN PRN Hypoglycemia Protocol Glucose 15 gm 07/07/22 20:09 Glucose Oral Gel 15 Gm Of Glucse In 37.5 Gm Tube PO PRN PRN Hypoglycemia Protocol Heparin Sodium (Porcine) 5,000 units 07/07/22 21:00 07/14/22 08:29 Heparin Sodium 5,000 Units/Ml Vial SUB-Q 5,000 units Q12HR MAGGIE Administration Hydralazine HCl 10 mg 07/07/22 20:05 Hydralazine Hcl 20 Mg/Ml Vial IV PUSH Q6H PRN Hypertension Metronidazole 500 mg in 100 mls @ 100 mls/hr 07/08/22 02:00 07/14/22 08:45 Flagyl 500 Mg/Iso Soln 100 Ml IVPB 100 mls/hr Q6H MAGGIE Administration Dextrose 1,000 mls @ 100 mls/hr 07/07/22 20:09 Dextrose 5% 1,000 Ml IVPB PRN PRN Hypoglycemia Protocol Cefepime HCl 2 gm in 50 mls @ 100 mls/hr 07/08/22 09:00 07/14/22 10:41 Maxipime 2 Gm/D5w 50 Ml IVPB 100 mls/hr Q12HR MAGGIE Administration Vancomycin HCl 1,500 mg in 500 mls @ 333.333 mls/hr 07/10/22 08:00 07/14/22 02:11 Vancomycin 1,500 Mg/D5w 500 Ml IVPB 333 mls/hr Q18H MAGGIE Administration Indapamide 2.5 mg 07/08/22 09:00 07/14/22 08:29 Indapamide 2.5 Mg Tablet PO 2
== END 2022-07-14 15:40 | disposition home health service (06) | DRG 239 ==
LOC: ANHED 19:22 → ANH3MEDSUR 07-08 00:25
PROVIDERS: Chiropractor; Emergency Medicine; Orthopaedic Surgery; Admitting Provider Internal Medicine; Emergency Provider Emergency Medicine; PCP Internal Medicine; Visit Provider Internal Medicine
PROC: 0Y6N0Z9 Detachment at Left Foot, Partial 1st Ray, Open Approach (ICD-10-PCS; principal; 2022-07-11 12:00)
PROC: 0Y6N0Z9 Detachment at Left Foot, Partial 1st Ray, Open Approach (ICD-10-PCS; CPT 28805; 2022-07-11 12:00)
DX: E11.52 Type 2 diabetes mellitus with diabetic peripheral angiopathy with gangrene (principal); N17.0 Acute kidney failure with tubular necrosis; I96 Gangrene, not elsewhere classified; M86.172 Other acute osteomyelitis, left ankle and foot; L03.116 Cellulitis of left lower limb; M00.872 Arthritis due to other bacteria, left ankle and foot; E11.69 Type 2 diabetes mellitus with other specified complication; E11.628 Type 2 diabetes mellitus with other skin complications; E11.65 Type 2 diabetes mellitus with hyperglycemia; I12.9 Hypertensive chronic kidney disease with stage 1 through stage 4 chronic kidney disease, or unspecified chronic kidney disease; N18.1 Chronic kidney disease, stage 1; E11.22 Type 2 diabetes mellitus with diabetic chronic kidney disease; E11.621 Type 2 diabetes mellitus with foot ulcer; L97.529 Non-pressure chronic ulcer of other part of left foot with unspecified severity; Z20.822 Contact with and (suspected) exposure to COVID-19; E11.42 Type 2 diabetes mellitus with diabetic polyneuropathy; I25.10 Atherosclerotic heart disease of native coronary artery without angina pectoris; E86.0 Dehydration; H53.50 Unspecified color vision deficiencies; E78.5 Hyperlipidemia, unspecified; E66.9 Obesity, unspecified; Z68.31 Body mass index [BMI] 31.0-31.9, adult; Z79.4 Long term (current) use of insulin; Z95.1 Presence of aortocoronary bypass graft; Z85.46 Personal history of malignant neoplasm of prostate
CPT/HCPCS: 36415; 36569; 71045; 73630; 73718; 76775; 80048; 80053; 80202; 81002; 81050; 82550; 82565; 82570; 82948; 83036; 83605; 83735; 83935; 84133; 84156; 84300; 84550; 85025; 85610; 85652; 85730; 86140; 86850; 86900; 86901; 87040; 87637; 88305; 88311; 93923; 97116; 97161; 97165; 97535; 99285; A9270; C1751; J0690; J0692; J1100; J1644; J1815; J1956; J2270; J2405; J2704; J3010; J3370; J3480; J7030; J7120

== ENCOUNTER 2022-07-18 10:05 | Outpatient (NON) | payer BC, SELFPAY ==
[2022-07-18 10:25] LABS: Albumin Level 3.6 g/dL (3.5-5.1); Anion Gap 9 mmol/L (8-16); Blood Urea Nitrogen 49 mg/dL (9-20); Calcium 8.9 mg/dL (8.4-10.2); Carbon Dioxide 25 mmol/L (22-30); Chloride 101 mmol/L (98-107); Estimated Glomerular Filt Rate 53; Glucose 135 mg/dL (65-110); Phosphorus 3.7 mg/dL (2.5-4.5); Potassium 3.1 mmol/L (3.4-5.0); Sodium 135 mmol/L (137-145)
== END 2022-07-18 10:06 | disposition home or self-care (01) ==
PROVIDERS: Internal Medicine; PCP Internal Medicine; Visit Provider Internal Medicine
DX: N17.9 Acute kidney failure, unspecified (principal)
CPT/HCPCS: 80069

== ENCOUNTER 2022-10-11 07:26 | Outpatient (RCR) | payer BC, SELFPAY ==
[2022-07-19 08:25] VITALS: BMI 31.2
--- NOTE | 2022-07-19 08:38 | PM.PNORT ---
Progress Note: A&P Assessment and Plan (1) Gangrenous toe: Code(s): I96 - Gangrene, not elsewhere classified Status: Acute Assessment and Plan: 1 week, 1 day s/p left TMA. Wound remains well approximated. Patient would benefit from DALLAS application for dressing vaccum. Applied today, tolerated well. Continue oral antibiotics. Follow up in 1 week for DALLAS dressing change. Patient educated on use of DALLAS device and signs of malfunction. Patient to contact our office for any signs of malfunctioning. Subjective Subjective Date/Time Seen: 07/19/22 08:38 Post Op day: 3 Principal diagnosis: Left foot osteomyelitis Interval history: 1 week, 1 day s/p left TMA. Patient presents to [facility] wound clinic today for reevaluation. Patient denies pain. No new concerns. Review of Systems Review of Systems: All systems reviewed & are unremarkable except as noted in HPI and below Exam Const: General: comfortable and no acute distress Resp: Effort & Inspection: normal respiratory effort Cardio: Rate: regular rate Rhythm: regular rhythm GI: GI Palp: Yes Soft to palpation and No Tenderness to palpation present (GI) Extrem: Other: Dressing changed left foot. Transmetatarsal incision with sanguinous drainage. Moderate swelling at the foot. No purulent drainage or erythema.
--- NOTE | 2022-07-26 08:16 | PM.PNORT ---
Progress Note: A&P Assessment and Plan (1) Gangrenous toe: Code(s): I96 - Gangrene, not elsewhere classified Status: Acute Assessment and Plan: 2 week, 1 day s/p left TMA. Wound remains well approximated. Patient would benefit from Continued DALLAS application for dressing vacuum. Applied today, tolerated well. finished course of antibiotics. Follow up in 1 week for DALLAS dressing change. Patient educated on use of DALLAS device and signs of malfunction. Patient to contact our office for any signs of malfunctioning. Subjective Subjective Date/Time Seen: 07/26/22 08:16 Post Op day: 15 Principal diagnosis: Left foot osteomyelitis Interval history: [facility] follow-up left foot. Status post transmetatarsal amputation. wound vac without problem. patient finished antibiotics 4 days ago. Exam Const: General: comfortable and no acute distress Resp: Effort & Inspection: normal respiratory effort Cardio: Rate: regular rate Rhythm: regular rhythm GI: GI Palp: Yes Soft to palpation and No Tenderness to palpation present (GI) Extrem: Other: Dressing changed left foot. Transmetatarsal incision with Serous drainage. Moderate swelling at the foot. No purulent drainage or erythema. loose skin around incision debrided with 15 blade knife. Wound length 8 cm, 2 cm probing at the old ulcer site.
--- NOTE | 2022-08-02 08:11 | PM.PNORT ---
Progress Note: A&P Assessment and Plan (1) Gangrenous toe: Code(s): I96 - Gangrene, not elsewhere classified Status: Acute Assessment and Plan: 3 weeks, 1 day s/p left TMA. Wound remains well approximated. plan to stop wound VAC at this time. Sutures removed without difficulty. Start silver rope wound packing gauze cover. Change daily and as needed. Start antifungal. finished course of antibiotics. Follow up in 1 week For dressing change and re-evaluation. Continue with fracture boot. Subjective Subjective Date/Time Seen: 08/02/22 08:11 Post Op day: 22 days Principal diagnosis: Left foot osteomyelitis Interval history: [facility] follow-up left foot. Status post transmetatarsal amputation. wound vac with problem 3 Days ago. patient removed wound VAC and has been doing dressing changes since. patient finished antibiotics. Exam Const: General: comfortable and no acute distress Resp: Effort & Inspection: normal respiratory effort Cardio: Rate: regular rate Rhythm: regular rhythm GI: GI Palp: Yes Soft to palpation and No Tenderness to palpation present (GI) Extrem: Other: Dressing changed left foot. Transmetatarsal incision with Serous drainage. Moderate swelling at the foot. No purulent drainage. Mild erythema at skin edge consistent with fungus. loose skin around incision debrided with scissor. Wound length 5 cm, 1.8 cm probing at the old ulcer site. [facility] [place] B[place] Inpatient Follow-up [id number] Post-op Follow Up
--- NOTE | 2022-08-09 08:24 | PM.PNORT ---
Progress Note: A&P Assessment and Plan (1) Gangrenous toe: Code(s): I96 - Gangrene, not elsewhere classified Status: Acute Assessment and Plan: 4 weeks, 1 day s/p left TMA. Wound remains well approximated with wound at the site of the previous ulcer site. Improvement per wound nurses and patient from last week in overall appearance. Continue silver rope wound packing gauze cover. Change daily and as needed. Start antifungal. Follow up in 1 week for dressing change and re-evaluation. Continue with fracture boot. Subjective Subjective Date/Time Seen: 08/09/22 08:24 Principal diagnosis: Left foot osteomyelitis Interval history: [facility] follow-up left foot. Status post transmetatarsal amputation. Transitioned to daily dressing changes after difficulty with DALLAS wound vac dressing. No new concerns today. Review of Systems Review of Systems: All systems reviewed & are unremarkable except as noted in HPI and below Exam Const: General: comfortable and no acute distress Resp: Effort & Inspection: normal respiratory effort Cardio: Rate: regular rate Rhythm: regular rhythm GI: GI Palp: Yes Soft to palpation and No Tenderness to palpation present (GI) Extrem: Other: Dressing changed left foot. Transmetatarsal incision with mild serous drainage. Mild swelling at the foot. No purulent drainage. No erythema at skin edge. Wound length 3x4x1.8cm, with probing at the old ulcer site. Wound with yellow/necrotic tissue. Objective Data Meds/Results Medications: Active Medications Generic Name Dose Route Start Last Admin Trade Name Freq PRN Reason Stop Dose Admin Clotrimazole 1 applic 08/02/22 08:00 Betamethasone/Clotrimazole Cr 15 Gm Tube TOPICAL 10/31/22 23:55 PRN PRN Wound Care Silver Nitrate 1 each 08/02/22 08:00 Aquacel Ag Advantage Bandage (*Bkc) TOPICAL 10/31/22 23:55 PRN PRN Wound Care Wound Care/Dressing Products 1 patch 08/02/22 08:00 Mepilex Transfer Drsg 6x8 TOPICAL 10/31/22 23:55 PRN PRN Wound Care
--- NOTE | 2022-08-16 08:48 | PM.PNORT ---
Progress Note: A&P Assessment and Plan (1) Gangrenous toe: Code(s): I96 - Gangrene, not elsewhere classified Status: Acute Assessment and Plan: 5 weeks, 1 day s/p left TMA. Wound remains well approximated with wound at the site of the previous ulcer site. Continue silver rope wound packing, add silver gel, gauze cover. Change daily and as needed. Continue antifungal. Follow up in 2 weeks for dressing change and re-evaluation. Continue with fracture boot. Subjective Subjective Date/Time Seen: 08/16/22 08:48 Principal diagnosis: Left foot osteomyelitis Interval history: 5 weeks, 1 day s/p transmetatarsal amputation. No new concerns. Review of Systems Review of Systems: All systems reviewed & are unremarkable except as noted in HPI and below Exam Const: General: comfortable and no acute distress Resp: Effort & Inspection: normal respiratory effort Cardio: Rate: regular rate Rhythm: regular rhythm GI: GI Palp: Yes Soft to palpation and No Tenderness to palpation present (GI) Extrem: Other: Dressing changed left foot. Transmetatarsal incision with mild serous drainage. Mild swelling at the foot. No purulent drainage. No erythema at skin edge. Wound length 2.5x4.5x1.4 cm, with probing at the old ulcer site. Remaining wound with 100% yellow/necrotic tissue. Psych: Mental Status: mental status grossly normal Objective Data Meds/Results Medications: Active Medications Generic Name Dose Route Start Last Admin Trade Name Freq PRN Reason Stop Dose Admin Clotrimazole 1 applic 08/02/22 08:00 Betamethasone/Clotrimazole Cr 15 Gm Tube TOPICAL 10/31/22 23:55 PRN PRN Wound Care Silver Nitrate 1 each 08/02/22 08:00 Aquacel Ag Advantage Bandage (*Bkc) TOPICAL 10/31/22 23:55 PRN PRN Wound Care Wound Care/Dressing Products 1 patch 08/02/22 08:00 Mepilex Transfer Drsg 6x8 TOPICAL 10/31/22 23:55 PRN PRN Wound Care
--- NOTE | 2022-08-30 08:54 | PM.PNORT ---
Progress Note: A&P Assessment and Plan (1) Gangrenous toe: Code(s): I96 - Gangrene, not elsewhere classified Status: Acute Assessment and Plan: 7 weeks, 1 day s/p left TMA. Wound remains well approximated with wound at the site of the previous ulcer site. Continue silver rope wound packing, add Santyl for autolytic debridement, gauze cover. Change daily and as needed. Continue antifungal gel. Follow up in 2 weeks for dressing change and re-evaluation. Continue with fracture boot. Subjective Subjective Date/Time Seen: 08/30/22 08:54 Principal diagnosis: Left foot osteomyelitis Interval history: 7 weeks, 1 day s/p transmetatarsal amputation. No new concerns. Review of Systems Review of Systems: All systems reviewed & are unremarkable except as noted in HPI and below Exam Const: General: comfortable and no acute distress Resp: Effort & Inspection: normal respiratory effort Cardio: Rate: regular rate Rhythm: regular rhythm GI: GI Palp: Yes Soft to palpation and No Tenderness to palpation present (GI) Extrem: Other: Dressing changed left foot. Transmetatarsal incision with mild serous drainage. Mild swelling at the foot. No purulent drainage. No erythema at skin edge. Wound length [id number], with probing at the old ulcer site. Remaining wound with 100% yellow/necrotic tissue. Psych: Mental Status: mental status grossly normal Objective Data Meds/Results Medications: Active Medications Generic Name Dose Route Start Last Admin Trade Name Freq PRN Reason Stop Dose Admin Clotrimazole 1 applic 08/02/22 08:00 Betamethasone/Clotrimazole Cr 15 Gm Tube TOPICAL 10/31/22 23:55 PRN PRN Wound Care Silver Nitrate 1 each 08/02/22 08:00 Aquacel Ag Advantage Bandage (*Bkc) TOPICAL 10/31/22 23:55 PRN PRN Wound Care Silver Nitrate 1 applic 08/16/22 09:44 Silvergel (Elta) 45 Ml TOPICAL 10/14/22 23:59 PRN PRN Wound Care Wound Care/Dressing Products 1 patch 08/02/22 08:00 Mepilex Transfer Drsg 6x8 TOPICAL 10/31/22 23:55 PRN PRN Wound Care
--- NOTE | 2022-08-30 09:05 | PM.OP ---
Procedure Note - Brief Procedure Note - Brief Date of procedure: 08/30/22 Pre-op diagnosis: left foot amputation site Left foot wound Post-op diagnosis: Same Procedure performed: Debridement left TMA Description of procedure: Debridement of the skin, subcutaneous tissue and muscle debrided under sterile conditions with #15 blade knife. All devitalized tissue including muscle removed. Procedure tolerated well. Patient instructed on post-debridement dressing changes. Reviewed signs/symptoms of complications to report to the office. Patient verbalized understanding and agrees with plan of care. Anesthesia: none Surgeon: TI Clancy Drains: No Packing: No Pathology: None sent Complications: No immediate complications Condition: Stable Disposition: No change Debridement/Burn/Wound Pre Procedure Consent was obtained, Procedures/risks were explained, Questions were answered, Correct patient identified and Correct side and site confirmed Episode Return Visit Area was prepped and draped using sterile technique?: Yes Ulcer/Wound Debridement, skin, first 20 sq cm or less: Yes Left (Left TMA wound ) Comments:: Debridement of the skin, subcutaneous tissue and muscle debrided under sterile conditions with #15 blade knife. All devitalized tissue including muscle removed. Procedure tolerated well. Patient instructed on post-debridement dressing changes. Reviewed signs/symptoms of complications to report to the office. Patient verbalized understanding and agrees with plan of care. Dressing Applied antibiotic ointment and Applied sterile dressing Post Procedure Patient tolerated the procedure well?: Tolerated procedure well
--- NOTE | 2022-09-13 08:49 | PM.PNORT ---
Progress Note: A&P Assessment and Plan (1) Gangrenous toe: Code(s): I96 - Gangrene, not elsewhere classified Status: Acute Assessment and Plan: 9 weeks, 1 day s/p left TMA. Wound at the site of the previous ulcer site. Debridement performed today under sterile conditions, tolerated well. Continue Santyl for autolytic debridement, transfer and gauze cover. Change daily and as needed. Continue antifungal gel. Follow up in 2 weeks for dressing change and re-evaluation. Continue with fracture boot. Subjective Subjective Date/Time Seen: 09/13/22 08:49 Principal diagnosis: Left foot osteomyelitis Interval history: 9 weeks, 1 day s/p transmetatarsal amputation. No new concerns. Review of Systems Review of Systems: All systems reviewed & are unremarkable except as noted in HPI and below Exam Const: General: comfortable and no acute distress Resp: Effort & Inspection: normal respiratory effort Cardio: Rate: regular rate Rhythm: regular rhythm GI: GI Palp: Yes Soft to palpation and No Tenderness to palpation present (GI) Extrem: Other: Dressing changed left foot. Transmetatarsal incision with mild serous drainage. Mild swelling at the foot. No purulent drainage. No erythema at skin edge. Wound length 3.3x1.9x0.8 cm, with probing at the original ulcer site. Remaining wound with 100% yellow/necrotic tissue. Psych: Mental Status: mental status grossly normal Objective Data Meds/Results Medications: Active Medications Generic Name Dose Route Start Last Admin Trade Name Freq PRN Reason Stop Dose Admin Clotrimazole 1 applic 08/02/22 08:00 Betamethasone/Clotrimazole Cr 15 Gm Tube TOPICAL 10/31/22 23:55 PRN PRN Wound Care Collagenase 1 applic 08/30/22 09:19 Collagenase Oint 30 Gm Tube TOPICAL 11/28/22 23:59 PRN PRN Wound Care Silver Nitrate 1 each 08/02/22 08:00 Aquacel Ag Advantage Bandage (*Bkc) TOPICAL 10/31/22 23:55 PRN PRN Wound Care Wound Care/Dressing Products 1 patch 08/02/22 08:00 Mepilex Transfer Drsg 6x8 TOPICAL 10/31/22 23:55 PRN PRN Wound Care Debridement/Burn/Wound Pre Procedure Consent was obtained, Procedures/risks were explained, Questions were answered, Correct patient identified and Correct side and site confirmed Episode Return Visit Area was prepped and draped using sterile technique?: Yes Ulcer/Wound Debridement, skin, first 20 sq cm or less: Yes Left (TMA ) Comments:: Debridement of the skin and subcutaneous tissue debrided under sterile conditions with #15 blade knife. All devitalized tissue removed. Procedure tolerated well. Patient instructed on post-debridement dressing changes. Reviewed signs/symptoms of complications to report to the office. Patient verbalized understanding and agrees with plan of care. Dressing Applied antibiotic ointment and Applied sterile dressing Post Procedure Patient tolerated the procedure well?: Tolerated procedure well
--- NOTE | 2022-09-27 08:32 | PM.IMHP ---
H&P: HPI History of Present Illness Date/Time: 09/27/22 08:32 Chief Complaint: Left transmetatarsal amputation Narrative: presents for follow-up outpatient wound clinic. Eleven weeks status post left transmetatarsal amputation. Continue care with Santyl, antifungal and transfer. Review of Systems Review of Systems: All systems reviewed & are unremarkable except as noted in HPI and below PMFSH Past Medical History Medical History Abnormal electrocardiography Abnormal finding of blood chemistry, unspecified Amputation of toe Anxiety ASHD (arteriosclerotic heart disease) Benign essential hypertension BMI 34.0-34.9,adult CKD (chronic kidney disease) Color blind Diabetes mellitus type 2, insulin dependent Diabetes mellitus with hyperglycemia, with long-term current use of insulin Diabetes mellitus with neuropathy Diabetic foot ulcer Diabetic ulcer of right foot associated with diabetes mellitus due to underlying condition Elevated homocysteine Elevated PSA Encounter for postoperative care Encounter for preventive health examination Encounter for routine adult health examination without abnormal findings Follow up Hallux valgus Hearing loss History of prostate cancer Hyperlipidemia Left hallux osteomyelitis Myocardial contusion Non-healing skin lesion 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 Prostate cancer screening PVCs (premature ventricular contractions) Ulcer of left foot due to type 2 diabetes mellitus Vitamin D deficiency Surgical History Surgical History History of foot surgery Hx of CABG Family History Family History Sibling Family history of heart disease in male family member before age 55 Grandparent Acute myocardial infarction Other Diabetes mellitus Diabetic foot ulcer Family history of malignant neoplasm Hypertension Social History Social History Smoking status: Never smoker Second hand tobacco smoke exposure: No Alcohol intake: never Drinks per week: 1 Substance use: never Substance use type: does not use Lack of Transportation: No Lack of Food: Never True Current Housing: I Have Housing Concerned About Future Housing: No Difficulty Paying Gas/Electric Bills: No Difficulty Paying for Meds: No Currently Unemployed: No Education: Grade School Difficulty w/ Childcare or Family Care: No Living arrangements: with family Spiritual care concerns: No Meds Home Medications and Allergies Home Medications Medication Instructions Recorded Confirmed Type omega-3 fatty acids 1,000 mg 2,000 mg PO BID 08/06/19 09/06/22 History capsule (Fish Oil Concentrate) blood sugar diagnostic (OneTouch #100 ea 03/11/21 09/06/22 Rx Verio test strips) chromium picolinate 1,000 mcg 1,000 mcg PO DAILY 04/13/21 09/06/22 History tablet ginkgo biloba 120 mg tablet 60 mg PO ONCE 04/13/21 09/06/22 History saw palmetto 450 mg capsule 450 mg PO ONCE 04/13/21 09/06/22 History zinc 50 mg tablet 50 mg PO DAILY 04/13/21 09/06/22 History Ozempic 0.25 mg or 0.5 mg (2 See Rx Instructions .Route 01/24/22 09/06/22 Rx mg/1.5 mL) subcutaneous pen .COMPLEX #1.5 mL injector (semaglutide) aspirin 81 mg capsule 81 mg PO DAILY 07/07/22 09/06/22 History irbesartan 300 mg tablet 300 mg PO DAILY 07/07/22 09/06/22 History tramadol 50 mg tablet 50 mg PO Q6H PRN pain #30 tabs 07/14/22 09/06/22 Rx potassium chloride 20 mEq 20 meq PO TID #27 tabs 07/18/22 09/06/22 Rx tablet,extended release insulin aspar prot-insulin aspart See Rx Instructions .Route 08/09/22 09/06/22 Rx 100 unit/mL (70-30) subcutaneous .COMPLEX #45 mL pen (Novolog Mix 70-30FlexPen U-100) flash glucose scanning reader #1 ea 08/17/22 09/06/22 Rx (FreeStyle Yohannes 2 [place]) flash glucose sensor (
--- NOTE | 2022-09-27 08:36 | P.OP_ITS ---
Procedure Note - Detailed Date of Procedure 09/27/22 Pre-op Diagnosis left foot amputation site, diabetic foot ulcer Post-op Diagnosis Same Procedure Performed excisional debridement of left foot skin and subcutaneous tissues 3 x 1 cm. Surgeon Jeremiah Carey MD Anesthesia None and Other Indications 77-year-old with neuropathy and left diabetic foot ulcer. Fibrinous exudate over the ulcer indicated for debridement Description of Procedure informed consent given foot prepped alcohol solution. Fifteen blade knife used to sharply excise skin subcutaneous tissue and slough from the wound bed. Debrided back to healthy tissue. Sterile dressing applied Estimated Blood Loss 1 Packing Yes Pathology None sent Complications None Condition Stable Disposition Other ( home with wound care instructions) [facility] Billing Surgery - Charge Forward: Surgery Billing ([id number])
--- NOTE | 2022-10-11 08:38 | PM.IMHP ---
H&P: HPI History of Present Illness Date/Time: 10/11/22 08:38 Chief Complaint: Left transmetatarsal amputation Narrative: Presents for follow-up outpatient wound clinic. 13 weeks status post left transmetatarsal amputation. Continue care with Santyl, antifungal and transfer. Review of Systems Review of Systems: All systems reviewed & are unremarkable except as noted in HPI and below PMFSH Past Medical History Medical History Abnormal electrocardiography Abnormal finding of blood chemistry, unspecified Amputation of toe Anxiety ASHD (arteriosclerotic heart disease) Benign essential hypertension BMI 34.0-34.9,adult CKD (chronic kidney disease) Color blind Diabetes mellitus type 2, insulin dependent Diabetes mellitus with hyperglycemia, with long-term current use of insulin Diabetes mellitus with neuropathy Diabetic foot ulcer Diabetic ulcer of right foot associated with diabetes mellitus due to underlying condition Elevated homocysteine Elevated PSA Encounter for postoperative care Encounter for preventive health examination Encounter for routine adult health examination without abnormal findings Follow up Hallux valgus Hearing loss History of prostate cancer Hyperlipidemia Left hallux osteomyelitis Myocardial contusion Non-healing skin lesion On [facility] living drug therapy Prostate cancer screening PVCs (premature ventricular contractions) Ulcer of left foot due to type 2 diabetes mellitus Vitamin D deficiency Surgical History Surgical History History of foot surgery Hx of CABG Family History Family History Sibling Family history of heart disease in male family member before age 55 Grandparent Acute myocardial infarction Other Diabetes mellitus Diabetic foot ulcer Family history of malignant neoplasm Hypertension Social History Social History Smoking status: Never smoker Second hand tobacco smoke exposure: No Alcohol intake: never Drinks per week: 1 Substance use: never Substance use type: does not use Lack of Transportation: No Lack of Food: Never True Current Housing: I Have Housing Concerned About Future Housing: No Difficulty Paying Gas/Electric Bills: No Difficulty Paying for Meds: No Currently Unemployed: No Education: Grade School Difficulty w/ Childcare or Family Care: No Living arrangements: with family Spiritual care concerns: No Meds Home Medications and Allergies Home Medications Medication Instructions Recorded Confirmed Type omega-3 fatty acids 1,000 mg 2,000 mg PO BID 08/06/19 09/06/22 History capsule (Fish Oil Concentrate) blood sugar diagnostic (OneTouch #100 ea 03/11/21 09/06/22 Rx Verio test strips) chromium picolinate 1,000 mcg 1,000 mcg PO DAILY 04/13/21 09/06/22 History tablet ginkgo biloba 120 mg tablet 60 mg PO ONCE 04/13/21 09/06/22 History saw palmetto 450 mg capsule 450 mg PO ONCE 04/13/21 09/06/22 History zinc 50 mg tablet 50 mg PO DAILY 04/13/21 09/06/22 History Ozempic 0.25 mg or 0.5 mg (2 See Rx Instructions .Route 01/24/22 09/06/22 Rx mg/1.5 mL) subcutaneous pen .COMPLEX #1.5 mL injector (semaglutide) aspirin 81 mg capsule 81 mg PO DAILY 07/07/22 09/06/22 History irbesartan 300 mg tablet 300 mg PO DAILY 07/07/22 09/06/22 History tramadol 50 mg tablet 50 mg PO Q6H PRN pain #30 tabs 07/14/22 09/06/22 Rx potassium chloride 20 mEq 20 meq PO TID #27 tabs 07/18/22 09/06/22 Rx tablet,extended release insulin aspar prot-insulin aspart See Rx Instructions .Route 08/09/22 09/06/22 Rx 100 unit/mL (70-30) subcutaneous .COMPLEX #45 mL pen (Novolog Mix 70-30FlexPen U-100) flash glucose scanning reader #1 ea 08/17/22 09/06/22 Rx (FreeStyle Yohannes 2 [place]) flash glucose sensor (FreeStyle #6 e
== END 2022-10-17 23:59 | disposition home or self-care (01) ==
LOC: ANHWOC 07:26
PROVIDERS: PCP Internal Medicine; Visit Provider Orthopaedic Surgery
DX: Z47.81 Encounter for orthopedic aftercare following surgical amputation (principal); Z89.422 Acquired absence of other left toe(s); Z89.412 Acquired absence of left great toe
CPT/HCPCS: 11042; 97607; 99213; 99214; A9270; G0463

== ENCOUNTER 2023-01-03 07:23 | Outpatient (RCR) | payer BC, SELFPAY ==
[2022-10-18 00:05] VITALS: BMI 31.2
--- NOTE | 2022-10-25 08:23 | PM.IMHP ---
H&P: HPI History of Present Illness Date/Time: 10/25/22 08:23 Chief Complaint: Left diabetic foot ulcer Narrative: 15 weeks status post transmetatarsal amputation with diabetic foot ulcer. Currently doing Santyl And daily dressing changes. No interim complaints. Review of Systems Review of Systems: CONSTITUTIONAL: Denies fever, chills, or sweats. EYES: Denies visual changes, redness, or discharge. ENT: Denies rhinorrhea, congestion, sore throat, or otalgia. CARDIOVASCULAR: Denies chest pain, palpitations, or edema. RESPIRATORY: Denies cough or dyspnea. GASTROINTESTINAL: Denies abdominal pain, nausea, vomiting, or diarrhea. GENITOURINARY: Denies dysuria or hematuria. SKIN: Reports left lower extremity redness, swelling, warmth MUSCULOSKELETAL: Denies back pain, reports left foot pain, blistering, left third toe is black NEUROLOGIC: Denies headache, numbness, or weakness. Constitutional: Constitutional: Denies fever(s) Eyes: Eyes: Denies blurry vision ENT: Reports Normal hearing present Cardiovascular: Cardiovascular: Denies chest pain and Denies dyspnea Respiratory: Respiratory: Denies dyspnea and Denies wheezing Gastrointestinal: Gastrointestinal: Denies abdominal pain Genitourinary: Genitourinary: Denies urinary urgency Musculoskeletal: Musculoskeletal: Reports as per HPI and Reports numbness ( Bilateral feet) Neurologic: Reports Normal hearing present, Denies behavioral changes, Denies confusion, Reports numbness ( lower extremities) and Denies convulsions Psychiatric: Psychiatric: Denies behavioral changes, Denies confusion and Denies hallucinations Endocrine: Endocrine: Reports as per HPI Hematologic/Lymphatic: Hematologic/Lymphatic: Denies easy bleeding Allergic/Immunologic: Allergic/Immunologic: Denies wheezing PMFSH Past Medical History Medical History Abnormal electrocardiography Abnormal finding of blood chemistry, unspecified Amputation of toe Anxiety ASHD (arteriosclerotic heart disease) Benign essential hypertension BMI 34.0-34.9,adult CKD (chronic kidney disease) Color blind Diabetes mellitus type 2, insulin dependent Diabetes mellitus with hyperglycemia, with long-term current use of insulin Diabetes mellitus with neuropathy Diabetic foot ulcer Diabetic ulcer of right foot associated with diabetes mellitus due to underlying condition Elevated homocysteine Elevated PSA Encounter for postoperative care Encounter for preventive health examination Encounter for routine adult health examination without abnormal findings Follow up Hallux valgus Hearing loss History of prostate cancer Hyperlipidemia Left hallux osteomyelitis Myocardial contusion Non-healing skin lesion 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 Prostate cancer screening PVCs (premature ventricular contractions) Ulcer of left foot due to type 2 diabetes mellitus Vitamin D deficiency Surgical History Surgical History History of foot surgery Hx of CABG Family History Family History Sibling Family history of heart disease in male family member before age 55 Grandparent Acute myocardial infarction Other Diabetes mellitus Diabetic foot ulcer Family history of malignant neoplasm Hypertension Social History Social History Smoking status: Never smoker Second hand tobacco smoke exposure: No Alcohol intake: never Drinks per week: 1 Substance use: never Substance use type: does not use Lack of Transportation: No Lack of Food: Never True Current Housing: I Have Housing Concerned About Future Housing: No Difficulty Paying Gas/Electric Bills: No Difficulty Paying for Meds: No Currently Unemployed: No Education: Grade School Difficulty w/ Childcare or Family Care: No Living arrangement
--- NOTE | 2022-11-08 09:04 | PCWOUND ---
WOCN NOTE patient did not show up for appointment, called him, he forgot and rescheduled for next Monday. reports his foot is doing good.
--- NOTE | 2022-11-15 08:22 | PM.IMHP ---
H&P: HPI History of Present Illness Date/Time: 11/15/22 08:22 Chief Complaint: Left diabetic foot ulcer Narrative: 4 months status post transmetatarsal amputation with diabetic foot ulcer. Currently doing Santyl and daily dressing changes. No interim complaints. Review of Systems Constitutional: Constitutional: Denies fever(s) Eyes: Eyes: Denies blurry vision ENT: Reports Normal hearing present Cardiovascular: Cardiovascular: Denies chest pain and Denies dyspnea Respiratory: Respiratory: Denies dyspnea and Denies wheezing Gastrointestinal: Gastrointestinal: Denies abdominal pain Genitourinary: Genitourinary: Denies urinary urgency Musculoskeletal: Musculoskeletal: Reports as per HPI and Reports numbness ( Bilateral feet) Neurologic: Reports Normal hearing present, Denies behavioral changes, Denies confusion, Reports numbness ( lower extremities) and Denies convulsions Psychiatric: Psychiatric: Denies behavioral changes, Denies confusion and Denies hallucinations Endocrine: Endocrine: Reports as per HPI Hematologic/Lymphatic: Hematologic/Lymphatic: Denies easy bleeding Allergic/Immunologic: Allergic/Immunologic: Denies wheezing PMFSH Past Medical History Medical History Abnormal electrocardiography Abnormal finding of blood chemistry, unspecified Amputation of toe Anxiety ASHD (arteriosclerotic heart disease) Benign essential hypertension BMI 34.0-34.9,adult CKD (chronic kidney disease) Color blind Diabetes mellitus type 2, insulin dependent Diabetes mellitus with hyperglycemia, with long-term current use of insulin Diabetes mellitus with neuropathy Diabetic foot ulcer Diabetic ulcer of right foot associated with diabetes mellitus due to underlying condition Elevated homocysteine Elevated PSA Encounter for postoperative care Encounter for preventive health examination Encounter for routine adult health examination without abnormal findings Follow up Hallux valgus Hearing loss History of prostate cancer Hyperlipidemia Left hallux osteomyelitis Myocardial contusion Non-healing skin lesion On [facility] drug therapy Prostate cancer screening PVCs (premature ventricular contractions) Ulcer of left foot due to type 2 diabetes mellitus Vitamin D deficiency Surgical History Surgical History History of foot surgery Hx of CABG Family History Family History Sibling Family history of heart disease in male family member before age 55 Grandparent Acute myocardial infarction Other Diabetes mellitus Diabetic foot ulcer Family history of malignant neoplasm Hypertension Social History Social History Smoking status: Never smoker Second hand tobacco smoke exposure: No Alcohol intake: never Drinks per week: 1 Substance use: never Substance use type: does not use Lack of Transportation: No Lack of Food: Never True Current Housing: I Have Housing Concerned About Future Housing: No Difficulty Paying Gas/Electric Bills: No Difficulty Paying for Meds: No Currently Unemployed: No Education: Grade School Difficulty w/ Childcare or Family Care: No Living arrangements: with family Spiritual care concerns: No Meds Home Medications and Allergies Home Medications Medication Instructions Recorded Confirmed Type omega-3 fatty acids 1,000 mg 2,000 mg PO BID 08/06/19 09/06/22 History capsule (Fish Oil Concentrate) blood sugar diagnostic (OneTouch #100 ea 03/11/21 09/06/22 Rx Verio test strips) chromium picolinate 1,000 mcg 1,000 mcg PO DAILY 04/13/21 09/06/22 History tablet ginkgo biloba 120 mg tablet 60 mg PO ONCE 04/13/21 09/06/22 History saw palmetto 450 mg capsule 450 mg PO ONCE 04/13/21 09/06/22 History zinc 50 mg tablet 50 mg PO NATALIO
--- NOTE | 2022-12-06 08:34 | PM.IMHP ---
H&P: HPI History of Present Illness Date/Time: 12/06/22 08:34 Chief Complaint: Left diabetic foot ulcer Narrative: 4 months status post transmetatarsal amputation with diabetic foot ulcer. Currently doing Santyl and daily dressing changes. No interim complaints. Review of Systems Constitutional: Constitutional: Denies fever(s) Eyes: Eyes: Denies blurry vision ENT: Reports Normal hearing present Cardiovascular: Cardiovascular: Denies chest pain and Denies dyspnea Respiratory: Respiratory: Denies dyspnea and Denies wheezing Gastrointestinal: Gastrointestinal: Denies abdominal pain Genitourinary: Genitourinary: Denies urinary urgency Musculoskeletal: Musculoskeletal: Reports as per HPI and Reports numbness ( Bilateral feet) Neurologic: Reports Normal hearing present, Denies behavioral changes, Denies confusion, Reports numbness ( lower extremities) and Denies convulsions Psychiatric: Psychiatric: Denies behavioral changes, Denies confusion and Denies hallucinations Endocrine: Endocrine: Reports as per HPI Hematologic/Lymphatic: Hematologic/Lymphatic: Denies easy bleeding Allergic/Immunologic: Allergic/Immunologic: Denies wheezing PMFSH Past Medical History Medical History Abnormal electrocardiography Abnormal finding of blood chemistry, unspecified Amputation of toe Anxiety ASHD (arteriosclerotic heart disease) Benign essential hypertension BMI 34.0-34.9,adult CKD (chronic kidney disease) Color blind Diabetes mellitus type 2, insulin dependent Diabetes mellitus with hyperglycemia, with long-term current use of insulin Diabetes mellitus with neuropathy Diabetic foot ulcer Diabetic ulcer of right foot associated with diabetes mellitus due to underlying condition Elevated homocysteine Elevated PSA Encounter for postoperative care Encounter for preventive health examination Encounter for routine adult health examination without abnormal findings Follow up Hallux valgus Hearing loss History of prostate cancer Hyperlipidemia Left hallux osteomyelitis Myocardial contusion Non-healing skin lesion On [facility] drug therapy Prostate cancer screening PVCs (premature ventricular contractions) Ulcer of left foot due to type 2 diabetes mellitus Vitamin D deficiency Surgical History Surgical History History of foot surgery Hx of CABG Family History Family History Sibling Family history of heart disease in male family member before age 55 Grandparent Acute myocardial infarction Other Diabetes mellitus Diabetic foot ulcer Family history of malignant neoplasm Hypertension Social History Social History Smoking status: Never smoker Second hand tobacco smoke exposure: No Alcohol intake: never Drinks per week: 1 Substance use: never Substance use type: does not use Lack of Transportation: No Lack of Food: Never True Current Housing: I Have Housing Concerned About Future Housing: No Difficulty Paying Gas/Electric Bills: No Difficulty Paying for Meds: No Currently Unemployed: No Education: Grade School Difficulty w/ Childcare or Family Care: No Living arrangements: with family Spiritual care concerns: No Meds Home Medications and Allergies Home Medications Medication Instructions Recorded Confirmed Type omega-3 fatty acids 1,000 mg 2,000 mg PO BID 08/06/19 09/06/22 History capsule (Fish Oil Concentrate) blood sugar diagnostic (OneTouch #100 ea 03/11/21 09/06/22 Rx Verio test strips) chromium picolinate 1,000 mcg 1,000 mcg PO DAILY 04/13/21 09/06/22 History tablet ginkgo biloba 120 mg tablet 60 mg PO ONCE 04/13/21 09/06/22 History saw palmetto 450 mg capsule 450 mg PO ONCE 04/13/21 09/06/22 History zinc 50 mg tablet 50 mg PO DAILY 0
--- NOTE | 2023-01-03 09:42 | PM.IMHP ---
H&P: HPI History of Present Illness Date/Time: 01/03/23 09:42 Chief Complaint: Left diabetic foot ulcer Narrative: 5 months status post transmetatarsal amputation with diabetic foot ulcer. Currently doing silver and daily dressing changes. No interim complaints. Review of Systems Constitutional: Constitutional: Denies fever(s) Eyes: Eyes: Denies blurry vision ENT: Reports Normal hearing present Cardiovascular: Cardiovascular: Denies chest pain and Denies dyspnea Respiratory: Respiratory: Denies dyspnea and Denies wheezing Gastrointestinal: Gastrointestinal: Denies abdominal pain Genitourinary: Genitourinary: Denies urinary urgency Musculoskeletal: Musculoskeletal: Reports as per HPI and Reports numbness ( Bilateral feet) Neurologic: Reports Normal hearing present, Denies behavioral changes, Denies confusion, Reports numbness ( lower extremities) and Denies convulsions Psychiatric: Psychiatric: Denies behavioral changes, Denies confusion and Denies hallucinations Endocrine: Endocrine: Reports as per HPI Hematologic/Lymphatic: Hematologic/Lymphatic: Denies easy bleeding Allergic/Immunologic: Allergic/Immunologic: Denies wheezing PMFSH Past Medical History Medical History Abnormal electrocardiography Abnormal finding of blood chemistry, unspecified Amputation of toe Anxiety ASHD (arteriosclerotic heart disease) Benign essential hypertension BMI 34.0-34.9,adult CKD (chronic kidney disease) Color blind Diabetes mellitus type 2, insulin dependent Diabetes mellitus with hyperglycemia, with long-term current use of insulin Diabetes mellitus with neuropathy Diabetic foot ulcer Diabetic ulcer of right foot associated with diabetes mellitus due to underlying condition Elevated homocysteine Elevated PSA Encounter for postoperative care Encounter for preventive health examination Encounter for routine adult health examination without abnormal findings Follow up Hallux valgus Hearing loss History of prostate cancer Hyperlipidemia Left hallux osteomyelitis Myocardial contusion Non-healing skin lesion [facility] Prostate cancer screening PVCs (premature ventricular contractions) Ulcer of left foot due to type 2 diabetes mellitus Vitamin D deficiency Surgical History Surgical History History of foot surgery Hx of CABG Family History Family History Sibling Family history of heart disease in male family member before age 55 Grandparent Acute myocardial infarction Other Diabetes mellitus Diabetic foot ulcer Family history of malignant neoplasm Hypertension Social History Social History Smoking status: Never smoker Second hand tobacco smoke exposure: No Alcohol intake: never Drinks per week: 1 Substance use: never Substance use type: does not use Lack of Transportation: No Lack of Food: Never True Current Housing: I Have Housing Concerned About Future Housing: No Difficulty Paying Gas/Electric Bills: No Difficulty Paying for Meds: No Currently Unemployed: No Education: Grade School Difficulty w/ Childcare or Family Care: No Living arrangements: with family Spiritual care concerns: No Meds Home Medications and Allergies Home Medications Medication Instructions Recorded Confirmed Type omega-3 fatty acids 1,000 mg 2,000 mg PO BID 08/06/19 09/06/22 History capsule (Fish Oil Concentrate) blood sugar diagnostic (OneTouch #100 ea 03/11/21 09/06/22 Rx Verio test strips) chromium picolinate 1,000 mcg 1,000 mcg PO DAILY 04/13/21 09/06/22 History tablet ginkgo biloba 120 mg tablet 60 mg PO ONCE 04/13/21 09/06/22 History saw palmetto 450 mg capsule 450 mg PO ONCE 04/13/21 09/06/22 History zinc 50 mg tablet 50 mg PO DAILY 0
== END 2023-01-23 23:59 | disposition home or self-care (01) ==
LOC: ANHWOC 07:23
PROVIDERS: PCP Internal Medicine; Visit Provider Orthopaedic Surgery
DX: Z47.81 Encounter for orthopedic aftercare following surgical amputation (principal); Z89.422 Acquired absence of other left toe(s); Z89.412 Acquired absence of left great toe
CPT/HCPCS: 99212; 99213; G0463

== ENCOUNTER 2023-01-27 08:02 | Outpatient (RCR) | payer BC, SELFPAY ==
--- NOTE | 2023-01-27 08:28 | PM.IMHP ---
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 Currently doing silver and daily dressing changes. No interim complaints. Review of Systems Constitutional: Constitutional: Denies fever(s) Eyes: Eyes: Denies blurry vision ENT: Reports Normal hearing present Cardiovascular: Cardiovascular: Denies chest pain and Denies dyspnea Respiratory: Respiratory: Denies dyspnea and Denies wheezing Gastrointestinal: Gastrointestinal: Denies abdominal pain Genitourinary: Genitourinary: Denies urinary urgency Musculoskeletal: Musculoskeletal: Reports as per HPI and Reports numbness ( Bilateral feet) Neurologic: Reports Normal hearing present, Denies behavioral changes, Denies confusion, Reports numbness ( lower extremities) and Denies convulsions Psychiatric: Psychiatric: Denies behavioral changes, Denies confusion and Denies hallucinations Endocrine: Endocrine: Reports as per HPI Hematologic/Lymphatic: Hematologic/Lymphatic: Denies easy bleeding Allergic/Immunologic: Allergic/Immunologic: Denies wheezing PMFSH Past Medical History Medical History Abnormal electrocardiography Abnormal finding of blood chemistry, unspecified Amputation of toe Anxiety ASHD (arteriosclerotic heart disease) Benign essential hypertension BMI 34.0-34.9,adult CKD (chronic kidney disease) Color blind Diabetes mellitus type 2, insulin dependent Diabetes mellitus with hyperglycemia, with long-term current use of insulin Diabetes mellitus with neuropathy Diabetic foot ulcer Diabetic ulcer of right foot associated with diabetes mellitus due to underlying condition Elevated homocysteine Elevated PSA Encounter for postoperative care Encounter for preventive health examination Encounter for routine adult health examination without abnormal findings Follow up Hallux valgus Hearing loss History of prostate cancer Hyperlipidemia Left hallux osteomyelitis Myocardial contusion Non-healing skin lesion On senior living drug therapy Prostate cancer screening PVCs (premature ventricular contractions) Ulcer of left foot due to type 2 diabetes mellitus Vitamin D deficiency Surgical History Surgical History History of foot surgery Hx of CABG Family History Family History Sibling Family history of heart disease in male family member before age 55 Grandparent Acute myocardial infarction Other Diabetes mellitus Diabetic foot ulcer Family history of malignant neoplasm Hypertension Social History Social History Smoking status: Never smoker Second hand tobacco smoke exposure: No Alcohol intake: never Drinks per week: 1 Substance use: never Substance use type: does not use Lack of Transportation: No Lack of Food: Never True Current Housing: I Have Housing Concerned About Future Housing: No Difficulty Paying Gas/Electric Bills: No Difficulty Paying for Meds: No Currently Unemployed: No Education: Grade School Difficulty w/ Childcare or Family Care: No Living arrangements: with family Spiritual care concerns: No Meds Home Medications and Allergies Home Medications Medication Instructions Recorded Confirmed Type omega-3 fatty acids 1,000 mg 2,000 mg PO BID 08/06/19 09/06/22 History capsule (Fish Oil Concentrate) blood sugar diagnostic (OneTouch #100 ea 03/11/21 09/06/22 Rx Verio test strips) chromium picolinate 1,000 mcg 1,000 mcg PO DAILY 04/13/21 09/06/22 History tablet ginkgo biloba 120 mg tablet 60 mg PO ONCE 04/13/21 09/06/22 History saw palmetto 450 mg capsule 450 mg PO ONCE 04/13/21 09/06/22 History zinc 50 mg tablet 50 mg PO DAILY 0
== END 2023-03-16 12:58 | disposition home or self-care (01) ==
LOC: ANHWOC 08:02
PROVIDERS: PCP Internal Medicine; Visit Provider Orthopaedic Surgery
DX: Z47.81 Encounter for orthopedic aftercare following surgical amputation (principal); Z89.422 Acquired absence of other left toe(s); E11.621 Type 2 diabetes mellitus with foot ulcer; L97.529 Non-pressure chronic ulcer of other part of left foot with unspecified severity
CPT/HCPCS: 99212; G0463

== ENCOUNTER 2024-07-16 12:07 | Outpatient (CLI) | payer MEDICARE, OTHER, SELFPAY ==
--- NOTE | ~2024-07-16 | US_ITS ---
LEFT LOWER EXTREMITY VENOUS ULTRASOUND Ordering provider: Frank Roberson MD History: . M79.605 - Pain in left leg . Comparison: None. FINDINGS: --COMMON FEMORAL: Patent and free of thrombus. Normal compressibility, phasic flow and augmentation. --PROXIMAL SUPERFICIAL FEMORAL: Patent and free of thrombus. Normal compressibility, phasic flow and augmentation. --DISTAL SUPERFICIAL FEMORAL: Patent and free of thrombus. Normal compressibility, phasic flow and au gmentation. --POPLITEAL: Patent and free of thrombus. Normal compressibility, phasic flow and augmentation. --POSTERIOR TIBIAL: Not demonstrated. IMPRESSION: Negative left lower extremity venous US. No deep vein thrombosis. Reviewed, dictated and finalized at location A. [facility] REPAIRER
[2024-07-16 13:11] LABS: Hematocrit 46.7 % (42.0-52.0); Hemoglobin 15.1 g/dL (14.0-18.0); Mean Corpuscular HGB Conc 32.3 g/dl (32-36); Mean Corpuscular Hemoglobin 27.7 pg (26-34); Mean Corpuscular Volume 85.7 fl (80-100); Mean Platelet Volume 10.4 fl (7.4-10.4); Platelet Count Result 274 k/mm3 (150-375); Red Blood Count 5.45 M/mm3 (4.6-6.20); Red Cell Distribution Width 14.4 % (11.5-14.5); White Blood Count 18.4 K/mm3 (4.5-10.0)
[2024-07-16 13:21] LABS: Anion Gap 10 mmol/L (4-12); Blood Urea Nitrogen 84 mg/dL (9-20); Calcium 9.9 mg/dL (8.4-10.2); Carbon Dioxide 26 mmol/L (22-30); Chloride 102 mmol/L (98-107); Estimated Glomerular Filt Rate 45; Glucose 200 mg/dL (65-110); Potassium 3.1 mmol/L (3.4-5.0); Sodium 138 mmol/L (137-145)
[2024-07-16 13:27] LABS: INR 1.2; Prothrombin Time 15.2 Seconds (11.1-14.7)
[2024-07-16 13:28] LABS: Partial Thromboplastin Time 35.7 Seconds (22.3-36.8)
[2024-07-16 13:37] LABS: Anisocytosis 1+; Band Neutrophils Percent 15 % (0-6); Eosinophils Absolute Manual 0.36 K/mm3 (0.02-0.50); Eosinophils Percent Manual 2 % (0-4); Lymphocytes Absolute Manual 1.65 K/mm3 (1.1-4.5); Lymphocytes Percent Manual 9 % (18-44); Monocytes Absolute Manual 1.28 K/mm3 (0.1-0.90); Monocytes Percent Manual 7 % (3-9); Neutrophils Absolute Manual 15.08 K/mm3 (1.3-6.7); Neutrophils Percent Manual 67 % (46-73); Platelet Estimate Adequate (Adequate); Total Cells Counted 100
[2024-07-16 13:38] LABS: Burr Cells 2+; Schistocytes None Seen
== END 2024-07-16 12:08 | disposition home or self-care (01) ==
PROVIDERS: Visit Provider Internal Medicine
DX: R60.0 Localized edema (principal); L53.9 Erythematous condition, unspecified; M79.605 Pain in left leg; M79.89 Other specified soft tissue disorders
CPT/HCPCS: 36415; 80048; 85025; 85610; 85730; 93971

== ENCOUNTER 2024-08-15 05:06 | Inpatient (IN) | payer MEDICARE, OTHER, SELFPAY ==
[2024-08-15] VITALS (17 sets, daily range): BP systolic 112–183; BP diastolic 53–83; PULSE 70–97; RESP 14–21; TEMP 36.3–36.8; O2SAT 92–100; BMI 31.6
--- NOTE | ~2024-08-15 | XR_ITS ---
EXAMINATION: XR chest 1V portable DATE: 08/15/2024 06:25 INDICATION: Overdose. TECHNIQUE: A single frontal view of the chest was obtained. COMPARISON: Chest single view 07/14/2022 FINDINGS: There is eventration of right hemidiaphragm. There is mild atelectasis in right perihilar r egion and left lower lung zone. No pleural effusion or pneumothorax. The heart size is normal. Median sternotomy wires and mediastinal surgical clips are seen, likely from prior coronary artery bypass g rafting. IMPRESSION: 1. Mild atelectasis in right perihilar region and left lower lung zone. Reviewed, dictated and finalized at location A. E SUPERVISOR
--- NOTE | ~2024-08-15 | US_ITS ---
EXAMINATION: US venous doppler [facility] DATE: 08/15/2024 11:16 INDICATION: Left calf swelling with pain and redness TECHNIQUE: Grayscale ultrasound images without and with compression and Doppler ultrasound images of the left lower extremity veins were obtained. COMPARISON: 07/16/2024 FINDINGS: The visualized portions of left common femoral vein, profunda (deep) femoral vein, femoral vein, popl iteal vein, peroneal veins, posterior tibial veins, and greater saphenous vein outflow are patent. Significant soft tissue edema. IMPRESSION: Soft tissue edema, without deep venous thrombosis within the left lower extremity. Reviewed, dictated and finalized at location A. P BUCKLER MACHINE IMPRESSION: Soft tissue edema, without deep venous thrombosis within the left lower extremi ty.
--- NOTE | ~2024-08-15 | CT_ITS ---
CLINICAL INDICATION: Cellulitis. COMPARISON: None. TECHNIQUE: Computed tomography (CT) of the left lower extremity was performed without intravenous con trast. The dose-length product was 1168.94 mGy-cm. FINDINGS/OBSERVATIONS: Significant anasarca along with dermal edema within the soft tissues of the left lower extremity. No discrete fluid collection is appreciated. No suprapatellar joint effusion is present. The infrapatellar joint space is clear. Densely calcified atherosclerotic disease. Multiple calcifications detected within the superficial soft tissues suggesting accompanying venous d isease. No acute fractures are appreciated. No cortical erosion present to suggest the presence of osteomyelitis. Degenerative disease is noted within the bones of the left foot. IMPRESSION: No discrete fluid collections. Significant edema and degenerative bony disease without secondary signs to suggest osteomyelitis (alt javon MRI would be more sensitive, if patient is clinically able). Reviewed, dictated and finalized at location A. ITE SETTER IMPRESSION: No discrete fluid collections. Significant edema and degenerative bony disease without secondary signs to sugg est osteomyelitis (although MRI would be more sensitive, if patient is clinical ly able).
--- NOTE | 2024-08-15 05:11 | ECG_ITS ---
Test Date: 2024-08-15 05:16:23 Measurements Intervals [place] Rate: 87 P: -22 ME: 151 QRS: -53 QRSD: 146 T: 29 QT: 407 QTc: 492 Interpretive Statements SINUS RHYTHM RIGHT BUNDLE BRANCH BLOCK [120+ ms QRS DURATION, UPRIGHT V1, 40+ ms S IN I/aVL/V4/V5/V6] LEFT ANTERIOR FASCICULAR BLOCK [QRS AXIS <= -45, QR IN I, RS IN II] INFERIOR MYOCARDIAL INFARCTION , PROBABLY OLD [40+ ms Q WAVE AND/OR ST/T ABNORMALITY IN II/aVF] ANTEROSEPTAL MYOCARDIAL INFARCTION , OF INDETERMINATE AGE [40+ ms Q WAVE IN V1-V4] No previous ECG available for comparison Electronically Signed On 08-16-2024 16:27:38 ASSISTANT PROFESSOR OF ARCHAEOLOGY by Julia Castle M.D.
--- NOTE | 2024-08-15 05:27 | PC.NURSE ---
RN brought up straight catheter option for pt urine sample. Pt states he wants to wait a bit and try to pee on his own.
[2024-08-15 05:28] LABS: Basophils Absolute Auto 0.1 K/mm3 (0.0-0.1); Basophils Percent Auto 0.9 % (0.2-1.2); Eosinophils Absolute Auto 0.6 K/mm3 (0-0.3); Eosinophils Percent Auto 4.6 % (0-4.4); Hematocrit 46.1 % (42.0-52.0); Hemoglobin 14.7 g/dL (14.0-18.0); Immature Granulocyte Absolute 0.07 K/mm3 (0.00-0.031); Immature Granulocyte Percent A 0.5 % (0-0.5); Lymphocytes Absolute Auto 5.49 K/mm3 (0.9-3.2); Lymphocytes Percent Auto 42.3 % (18.3-44.2); Mean Corpuscular HGB Conc 31.9 g/dl (32-36); Mean Corpuscular Hemoglobin 28.1 pg (26-34); Mean Platelet Volume 9.7 fl (7.4-10.4); Monocytes Absolute Auto 1.1 K/mm3 (0.1-0.6); Monocytes Percent Auto 8.7 % (2.6-8.5); Neutrophils Absolute Auto 5.6 K/mm3 (1.3-6.7); Platelet Count Result 280 k/mm3 (150-375); Red Blood Count 5.24 M/mm3 (4.6-6.20); Red Cell Distribution Width 14.6 % (11.5-14.5)
--- NOTE | 2024-08-15 05:32 | PC.NURSE ---
Rn spoke with Mikayla from poison control and she recommends activated charcoal and a 4 hour tylenol blood level drawn from initial ingestion (so around 0815).
[2024-08-15] MEDS: CHARCOAL ACTIVATED LIQUID 50 GM/240 ML BOTTLE PO (05:40)
--- NOTE | 2024-08-15 05:48 | PC.NURSE ---
Poison control faxed us tylenol treatment guidelines. RN placed them in pt chart.
[2024-08-15 05:51] LABS: Ethanol < 10 mg/dL (<10); Salicylate < 1.0 mg/dL (2-20)
[2024-08-15 06:04] LABS: Platelet Estimate Adequate (Adequate)
[2024-08-15 06:05] LABS: Acetaminophen 247 ug/mL (10-30); Anisocytosis 1+; Ovalocytes 1+; Schistocytes None Seen; Tear Drop Cells 1+
--- NOTE | 2024-08-15 06:05 | ECG_ITS ---
Test Date: 2024-08-15 06:08:46 Measurements Intervals [place] Rate: 74 P: -63 MI: 158 QRS: -31 QRSD: 156 T: 56 QT: 443 QTc: 493 Interpretive Statements SINUS RHYTHM MARKED LEFT AXIS DEVIATION [QRS AXIS < -30] RIGHT BUNDLE BRANCH BLOCK [120+ ms QRS DURATION, UPRIGHT V1, 40+ ms S IN I/aVL/V4/V5/V6] POSSIBLE ANTEROSEPTAL INFARCT Compared to ECG 08/15/2024 05:16:23 NO SIGNIFICANT CHANGES Electronically Signed On 08-16-2024 16:28:45 TEACHER OF [employer] by Julia Castle M.D.
--- NOTE | 2024-08-15 06:10 | ED_ITS ---
HPI - General Adult General Chief complaint: Overdose Stated complaint: accidental overdose Time Seen by Provider: 08/15/24 06:05 History of Present Illness HPI narrative: Patient is 79-year-old gentleman who presents emergency department chief complaint of accidental Tylenol overdose. The patient reports he took somewhere between 10 and 2500 mg Tylenol by accident about 415 this morning patient states that he keeps his medications in a bottle and keeps a bottle of Tylenol next to it the patient states that he accidentally grabbed the bottle Tylenol took some in a single swallow and then realized that he took the wrong container. Patient reports that he is having no chest pain reports that he is concerned that he may have overdosed. Related Data Home Medications ?Medication ?Instructions ?Recorded ?Confirmed ?Last Taken ?Type omega-3 fatty acids 1,000 mg 2,000 mg PO BID 08/06/19 07/22/24 07/07/22 History capsule (Fish Oil Concentrate) chromium picolinate 1,000 mcg 1,000 mcg PO DAILY 04/13/21 07/22/24 07/07/22 History tablet ginkgo biloba 120 mg tablet 60 mg PO ONCE 04/13/21 07/22/24 07/07/22 History saw palmetto 450 mg capsule 450 mg PO ONCE 04/13/21 07/22/24 07/07/22 History zinc 50 mg tablet 50 mg PO DAILY 04/13/21 07/22/24 07/07/22 History aspirin 81 mg capsule 81 mg PO DAILY 07/07/22 07/22/24 07/07/22 History Calcium BYMOUTH 04/24/24 07/22/24 Unknown History Vitamin D BYMOUTH 04/24/24 07/22/24 Unknown History phytonadione (vitamin K1) 1,000 1 mg PO DAILY 07/16/24 07/22/24 Unknown History mcg capsule Allergies Allergy/AdvReac Type Severity Reaction Status Date / Time Penicillins Allergy Unknown Hives Verified 08/15/24 05:24 scallops Allergy Unknown syncope Verified 08/15/24 05:24 Review of Systems 2 Review of Systems: A 10 system review of systems was completed on the patient and is negative except for what is stated in the HPI. Nursing and ancillary documentation was reviewed. 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 Hallux valgus Ulcer of left foot due to type 2 diabetes mellitus Hearing loss Color blind PVCs (premature ventricular contractions) Myocardial contusion ASHD (arteriosclerotic heart disease) Abnormal electrocardiography Elevated PSA Non-healing skin lesion Encounter for preventive health examination Diabetes mellitus with hyperglycemia, with long-term current use of insulin Amputation of toe Prostate cancer screening Diabetic foot ulcer Abnormal finding of blood chemistry, unspecified History of prostate cancer Elevated homocysteine CKD (chronic kidney disease) BMI 34.0-34.9,adult Encounter for routine adult health examination without abnormal findings On [facility] drug therapy Hyperlipidemia Benign essential hypertension Diabetes mellitus type 2, insulin dependent Surgical History Surgical History Hx of CABG History of foot surgery Family History Family History Sibling Family history of heart disease in male family member before age 55 Grandparent Acute myocardial infarction Other Diabetes mellitus Diabetic foot ulcer Family history of malignant neoplasm Hypertension Social History Social History Smoking status: Never smoker Second hand tobacco smoke exposure: No Alcohol intake: never Drinks per week: 1 Substance use: never Substance use type: does not use Lack of Transportation: No Lack of Food: Never True Current Housing: I Have Housing Concerned About Future Housing: No Difficulty Paying Gas/Electric Bills: No Difficulty Paying for Meds: No Currently Unemployed: No Education: Grade School Difficulty w/ Childcare or Family Care: No Living arrangements: with family Spiritual care concerns: No Exam 2 Narrative: GENERAL: Well-appearing, well-nourished, and in no acute distress. HEAD: Normocephalic, atraumatic. EYES: PERRLA and EOMI. ENT: Nares clear, no rhinorrhea or epistaxis. Mucous membranes moist. NECK: Supple. CHEST: Clear to auscultation. No respiratory distress. HEART: Regular rate and rhythm. No murmur heard. Normal peripheral pulses. ABDOMEN: Soft, nontender, nondistended, normal active bowel sounds. EXTREMITIES: Normal range of motion. No edema. SKIN: Warm, dry, no rash. NEURO: No focal deficits. Alert and oriented x3. PSYCH: Normal mood and affect. Course Vital Signs Vital signs: Vital Signs Pulse Rate 87 08/15/24 05:13 Respiratory Rate 16 08/15/24 05:13 Blood Pressure 150/66 H 08/15/24 05:13 Pulse Oximetry 97 08/15/24 05:13 Oxygen Delivery Room Air 08/15/24 05:13 Temperature 36.5 C 08/15/24 06:13 Pulse Rate 70 08/15/24 06:13 Respiratory Rate 21 H 08/15/24 06:13 Blood Pressure 122/71 08/15/24 06:13 Pulse Oximetry 98 08/15/24 06:13 Oxygen Delivery Room Air 08/15/24 05:18 Medical Decision Making [facility] Narrative Medical decision making narrative: Differential diagnosis includes sub toxic overdose of Tylenol, toxic Tylenol overdose. Accidental ingestion The patient denies suicidal or homicidal ideation The initial acetaminophen level was 247 The patient was given charcoal in the emergency department The patient will be started on an acetadote protocol Vital Signs Vital Signs: Vital Signs Pulse Rate 87 08/15/24 05:13 Respiratory Rate 16 08/15/24 05:13 Blood Pressure 150/66 H 08/15/24 05:13 Pulse Oximetry 97 08/15/24 05:13 Oxygen Delivery Room Air 08/15/24 05:13 Temperature 36.5 C 08/15/24 06:13 Pulse Rate 70 08/15/24 06:13 Respiratory Rate 21 H 08/15/24 06:13 Blood Pressure 122/71 08/15/24 06:13 Pulse Oximetry 98 08/15/24 06:13 Oxygen Delivery Room Air 08/15/24 05:18 Lab Data 08/15/24 05:20 08/15/24 05:20 Labs: Lab Results 08/15/24 Range/Units 05:20 WBC 13.0 H (4.5-10.0) K/mm3 RBC 5.24 (4.6-6.20) M/mm3 Hgb 14.7 (14.0-18.0) g/dL Hct 46.1 (42.0-52.0) % MCV 88.0 (80-100) fl MCH 28.1 (26-34) pg MCHC 31.9 L (32-36) g/dl RDW 14.6 H (11.5-14.5) % Plt Count 280 (150-375) k/mm3 MPV 9.7 (7.4-10.4) fl Immature Gran % (Auto) 0.5 (0-0.5) % Neut % (Auto) 43.0 L (45.5-73.1) % Lymph % (Auto) 42.3 (18.3-44.2) % [place] % (Auto) 8.7 H (2.6-8.5) % Eos % (Auto) 4.6 H (0-4.4) % Baso % (Auto) 0.9 (0.2-1.2) % Lymph # (Auto) 5.49 H (0.9-3.2) K/mm3 [place] # (Auto) 1.1 H (0.1-0.6) K/mm3 Eos # (Auto) 0.6 H (0-0.3) K/mm3 Baso # (Auto) 0.1 (0.0-0.1) K/mm3 Abs Immat Gran (auto) 0.07 H (0.00-0.031) K/mm3 Absolute Neuts (auto) 5.6 (1.3-6.7) K/mm3 Absolute Nucleated RBC 0.000 (0.0-0.012) K/mm3 Nucleated RBC % 0.0 (0.0-0.2) % Platelet Estimate Adequate (Adequate) Anisocytosis 1+ Tear Drop Cells 1+ Ovalocytes 1+ Schistocytes None seen Sodium 137 (137-145) mmol/L Potassium 5.0 (3.4-5.0) mmol/L Chloride 101 (98-107) mmol/L Carbon Dioxide 26 (22-30) mmol/L Anion Gap 10 (4-12) mmol/L BUN 56 H D (9-20) mg/dL Creatinine 1.13 (0.7-1.3) mg/dL Estim Creat Clear Calc 54 ml/min Estimated GFR > 60 (59 - ) Glucose 238 H (65-110) mg/dL Calcium 9.3 (8.4-10.2) mg/dL Total Bilirubin 0.7 (0.2-1.3) mg/dL AST 36 (17-59) U/L ALT 21 (6-50) U/L Alkaline Phosphatase 144 H (38-126) U/L Total Protein 7.0 (6.3-8.2) g/dL Albumin 3.9 (3.5-5.1) g/dL TSH Pending Salicylates < 1.0 L (2-20) mg/dL Acetaminophen 247 H* (10-30) ug/mL Ethyl Alcohol < 10 (<10) mg/dL Critical Care Time Critical Care Time Critical Care Time: Yes Total Critical Care Time: 75 Discharge Plan Discharge Clinical Impression: Accidental acetaminophen overdose Patient Disposition: Still a Patient Condition: Stable Patient Language: Vietnamese Prescriptions: No Action (DME) FreeStyle Yohannes 2 [place] Misc See Rx Instructions .Route Qty: 1 0RF Rx Instructions: Use to continuously monitor BS (DME) FreeStyle Yohannes 2 Sensor Kit See Rx Instructions .Route Qty: 6 3RF Rx Instructions: Use to continuously monitor BS Calcium BYMOUTH Vitamin D BYMOUTH (DME) pen needle, diabetic [BD Ultra-Fine Madai Pen Needle] 32 gauge x 5/32 needle See Rx Instructions .Route Qty: 100 0RF Rx Instructions: USE TWO TIMES A DAY WITH INSULIN INJECTIONS DIRECTED omega-3 fatty acids [Fish Oil Concentrate] 1,000 mg capsule 2,000 mg PO BID chromium picolinate 1,000 mcg tablet 1,000 mcg PO DAILY zinc 50 mg tablet 50 mg PO DAILY saw palmetto 450 mg capsule 450 mg PO ONCE Rx Instructions: give with food (meal/snack) ginkgo biloba 120 mg tablet 60 mg PO ONCE Rx Instructions: give with meal/snack Trulicity 4.5 mg/0.5 mL pen injector 4.5 mg subcut WEEKLY Qty: 6 3RF Rx Instructions: Please D/C the Ozempic. Thank you hydrochlorothiazide 12.5 mg tablet 12.5 mg PO DAILY Qty: 90 1RF Rx Instructions: Please disregard script for HCTZ 25. Thank you! phytonadione (vitamin K1) 1,000 mcg capsule 1 mg PO DAILY furosemide [Lasix] 40 mg tablet 40 mg PO QAM Qty: 90 1RF Rx Instructions: Please D/C the HCTZ. Thank you potassium chloride 10 mEq capsule, extended release 10 meq PO DAILY Qty: 90 1RF aspirin 81 mg Capsule 81 mg PO DAILY (DME) OneTouch Verio test strips Strip See Rx Instructions .ROUTE .MEDSUPPLY Qty: 100 11RF Rx Instructions: Use to test BS three times a day fluticasone propionate 50 mcg/actuation spray,suspension See Rx Instructions .ROUTE .COMPLEX Qty: 16 0RF Dose Instruction: SHAKE LIQUID AND USE 2 SPRAYS IN EACH NOSTRIL TWICE DAILY Rx Instructions: SHAKE LIQUID AND USE 2 SPRAYS IN EACH NOSTRIL TWICE DAILY insulin asp prt-insulin aspart [Novolog Mix 70-30FlexPen U-100] 100 unit/mL (70-30) insulin pen 45 unit subcut BID Qty: 15 1RF irbesartan 300 mg tablet See Rx Instructions .ROUTE .COMPLEX Qty: 90 3RF Dose Instruction: TAKE ONE TABLET BY MOUTH ONCE DAILY Rx Instructions: TAKE ONE TABLET BY MOUTH ONCE DAILY rosuvastatin 20 mg tablet See Rx Instructions .ROUTE .COMPLEX Qty: 90 1RF Dose Instruction: TAKE 1 TABLET BY MOUTH EVERY DAY Rx Instructions: TAKE 1 TABLET BY MOUTH EVERY DAY amlodipine 2.5 mg tablet 2.5 mg PO DAILY Qty: 90 0RF nebivolol 20 mg tablet See Rx Instructions .ROUTE .COMPLEX Qty: 90 1RF Dose Instruction: TAKE 1 TABLET BY MOUTH EVERY DAY Rx Instructions: TAKE 1 TABLET BY MOUTH EVERY DAY (DME) Contour Next Test Strips Strip See Rx Instructions .Route Qty: 100 5RF Rx Instructions: Use 1 test strip 3-4 times daily for blood glucose checks Jardiance 10 mg tablet 10 mg PO DAILY 30 Days Qty: 30 2RF silver sulfadiazine [Silvadene] 1 % cream 1 applic topical BID Qty: 80 1RF Rx Instructions: apply a 1.5 mm thickness cefuroxime axetil 500 mg tablet 500 mg PO Q12H Qty: 14 0RF doxycycline hyclate 100 mg capsule 100 mg PO DAILY Qty: 14 0RF Rx Instructions: Please D/C the Clindamycin. Thank you Follow-up/Referrals: PHYSICIAN NOT ON STAFF,NONSTAFF [Primary Care Provider] - Time of Disposition: 06:39
[2024-08-15] MEDS: SODIUM CHLORIDE 0.9% IV 2,000 ML 999 ML (06:14)
[2024-08-15 06:16] LABS: Alanine Aminotransferase 21 U/L (6-50); Albumin Level 3.9 g/dL (3.5-5.1); Alkaline Phosphatase 144 U/L (38-126); Anion Gap 10 mmol/L (4-12); Aspartate Amino Transferase 36 U/L (17-59); Bilirubin,Total 0.7 mg/dL (0.2-1.3); Blood Urea Nitrogen 56 mg/dL (9-20); Calcium 9.3 mg/dL (8.4-10.2); Carbon Dioxide 26 mmol/L (22-30); Chloride 101 mmol/L (98-107); Estimated CRCL calculation 54 ml/min; Estimated Glomerular Filt Rate > 60; Glucose 238 mg/dL (65-110); Sodium 137 mmol/L (137-145)
[2024-08-15] MEDS: WATER IVPB ×2 (07:00→08:24)
[2024-08-15] MEDS: ACETYLCYSTEINE IVPB ×3 (07:00→12:55)
[2024-08-15] MEDS: DEXTROSE 5% IVPB ×3 (07:00→12:55)
--- NOTE | 2024-08-15 08:05 | PC.NURSE ---
This patient, Eldon Gonzales, was admitted to Intensive Care Unit-1 at 0747. Patient/family oriented to hospital policies and general routines including ID bracelet, bed and alarms, visiting hours, pain management, procedures, bathroom and other care routines, personal items, smoking policy, room service/diet, and visiting hours. Information on how to activate the Rapid Response Team has been discussed. Patient/Family are encouraged to report perceived risks to care and to ask questions if they do not understand what they are told or what they should do.
[2024-08-15] MEDS: ONDANSETRON INJ 4 MG/2 ML VIAL IV PUSH (09:03)
[2024-08-15] MEDS: LACTATED RINGERS 1,000 ML 75 ML IV CONT (09:03)
[2024-08-15 09:08] LABS: Glucose Point of Care 386 mg/dl (65-105)
[2024-08-15 09:11] LABS: Acetaminophen 137 ug/mL (10-30)
[2024-08-15] MEDS: INSULIN ASPART (*BKC) 100 UNITS/ML SUB-Q ×2 (09:11→12:29)
[2024-08-15 09:50] LABS: MRSA (PCR) NOT DETECTED (NOT DETECTE)
--- NOTE | 2024-08-15 10:01 | WPDCNINT ---
Assessment and Plan Assessment and plan (1) Accidental acetaminophen overdose: Code(s): T39.1X1A - Poisoning by 4-Aminophenol derivatives, accidental (unintentional), initial encounter Status: Acute Assessment and Plan: Accidental acetaminophen overdose Initial level 247 with normal LFTs Continue N-acetylcysteine infusion Monitor acetaminophen level and LFTs periodically Poison control was notified IV fluid (2) Leg ulcer, left: Code(s): L97.929 - Non-pressure chronic ulcer of unspecified part of left lower leg with unspecified severity Status: Acute Assessment and Plan: Likely venous ulcer Consult wound care Management of cellulitis as below (3) Cellulitis of left leg: Code(s): L03.116 - Cellulitis of left lower limb Status: Acute Assessment and Plan: Left leg has cellulitis words soft tissue edema Check CT scan of the left leg to rule out deep infection or osteomyelitis Start vancomycin and cefepime. Patient allergic to penicillin but has tolerated cephalosporin as an outpatient Check blood cultures, procalcitonin level (4) Swelling of left lower extremity: Code(s): M79.89 - Other specified soft tissue disorders Status: Acute Assessment and Plan: Check lower extremity Doppler to rule out DVT (5) CKD (chronic kidney disease): Qualifiers: Chronic kidney disease stage: stage 1 Qualified Code(s): N18.1 - Chronic kidney disease, stage 1 Code(s): N18.9 - Chronic kidney disease, unspecified Status: Acute Assessment and Plan: Creatinine appears to be close to baseline. Monitor urine output electrolytes and creatinine Start IV fluid (6) Diabetes mellitus type 2, insulin dependent: Code(s): E11.9 - Type 2 diabetes mellitus without complications; Z79.4 - group home (current) use of insulin Status: Acute Assessment and Plan: 70/30 insulin, SSI Plan DVT prophylaxis -overnight Nutrition -diet ordered Code Status - Full Code Total Critical Care Time - 35 minutes Due to a high probability of clinically significant, life threatening deterioration, the patient required my highest level of preparedness to intervene emergently and I personally spent this critical care time directly and personally managing the patient. This critical care time included obtaining a history; examining the patient; pulse oximetry; ordering and review of studies; arranging urgent treatment with development of a management plan; evaluation of patient's response to treatment; frequent reassessment; and discussions with other providers. It was exclusive of separately billable procedures and treating other patients and teaching time. Please see Assessment and Plan section and the rest of the note for further information on patient assessment and treatment Day Care Home Provider Consult Note Consult date: 08/15/24 Reason for consult: Accidental acetaminophen overdose HPI: Eldon Gonzales is a 79 year old male with past medical history of diabetes and chronic kidney disease who presented to ER after taking unknown amount of Tylenol pills by accident. Patient states that he caves a cupful of Tylenol at his bedside because he takes them frequently 1-2 pills every 6 hours for pain in his left leg. He also keeps his regular medications at bedside and accidentally today at 4:15 a.m. he instead of his taking regular pills took the cup full of Tylenol pills by accident. Tylenol was 500 mg each pill. Patient presented to ER and was given activated charcoal. His acetaminophen level was 247. Poison control was notified. Patient was started on and acetylcysteine infusion. Patient did had episode of bradycardia after taking activated charcoal. Patient now admitted to ICU further evaluation and managed Patient at this time denies any specific complaints and states he feels tired and wants to sleep. Patient denies fever, chest pain, shortness of breath, cough, nausea vomiting, abdominal pain,, diarrhea, headache or constipation. All other systems were reviewed and were negative Patient states that he has been taking 2 pills of ibuprofen 200 mg every 6 hours for last 1-2 weeks. He had an between ibuprofen he takes 1-2 pills of Tylenol. He has had infection in his left leg which has been managed as an outpatient and he has been taking antibiotics. He had a Doppler done of lower extremity last month which was negative for DVT. He states that leg is definitely doing better. He does have pain but states the redness and swelling is overall improved. Patient takes 70 30 insulin and it appears that he has been taking it as he pleases. He takes 2-3 times will be able dosing depending on his blood sugar levels and does not follow the prescription. Review of Systems Review of Systems: All systems reviewed & are unremarkable except as noted in HPI and below (HB) PMFSH Past Medical History Medical History BMI 33.0-33.9,adult Pain and swelling of left lower extremity Peripheral edema Muscle spasms of both lower extremities Encounter for routine adult health examination with abnormal findings Pedal edema Peripheral neuropathy BMI 32.0-32.9,adult Follow up Vitamin D deficiency Acute kidney injury Cellulitis of left foot Gangrenous toe History of elevated prostate specific antigen (PSA) Anxiety Diabetic ulcer of right foot associated with diabetes mellitus due to underlying condition Encounter for postoperative care Left hallux osteomyelitis Diabetes mellitus with neuropathy Hallux valgus Ulcer of left foot due to type 2 diabetes mellitus Hearing loss Color blind PVCs (premature ventricular contractions) Myocardial contusion ASHD (arteriosclerotic heart disease) Abnormal electrocardiography Elevated PSA Non-healing skin lesion Encounter for preventive health examination Diabetes mellitus with hyperglycemia, with long-term current use of insulin Amputation of toe Prostate cancer screening Diabetic foot ulcer Abnormal finding of blood chemistry, unspecified History of prostate cancer Elevated homocysteine CKD (chronic kidney disease) BMI 34.0-34.9,adult Encounter for routine adult health examination without abnormal findings On long chain beamer drug therapy Hyperlipidemia Benign essential hypertension Diabetes mellitus type 2, insulin dependent Surgical History Surgical History Hx of CABG History of foot surgery Family History Family History Sibling Family history of heart disease in male family member before age 55 Grandparent Acute myocardial infarction Other Diabetes mellitus Diabetic foot ulcer Family history of malignant neoplasm Hypertension Social History Social History Smoking status: Never smoker Second hand tobacco smoke exposure: No Alcohol intake: never Drinks per week: 1 Substance use: never Substance use type: does not use Do You Feel Safe in your Home?: Yes Lack of Transportation: No Lack of Food: Never True Current Housing: I Have Housing Concerned About Future Housing: No Difficulty Paying Gas/Electric Bills: No Difficulty Paying for Meds: No Currently Unemployed: No Education: High School Diploma/GED Difficulty w/ Childcare or Family Care: No Living arrangements: with family Spiritual care concerns: No Meds Home Medications and Allergies Home Medications ?Medication ?Instructions ?Recorded ?Confirmed ?Type omega-3 fatty acids 1,000 mg 2,000 mg PO BID 08/06/19 08/15/24 History capsule (Fish Oil Concentrate) blood sugar diagnostic (Umthunziuch #100 ea 03/11/21 08/15/24 Rx Verio test strips) chromium picolinate 1,000 mcg 1,000 mcg PO DAILY 04/13/21 08/15/24 History tablet zinc 50 mg tablet 50 mg PO DAILY 04/13/21 08/15/24 History aspirin 81 mg capsule 81 mg PO DAILY 07/07/22 08/15/24 History flash glucose scanning reader #1 ea 08/17/22 07/22/24 Rx (FreeStyle Yohannes 2 [place]) flash glucose sensor (FreeStyle #6 ea 08/17/22 07/22/24 Rx Yohannes 2 Sensor kit) Novolog Mix 70-30 FlexPen U-100 45 unit (0.45 mL) subcut BID #15 mL 02/07/24 08/15/24 Rx Insulin 100 unit/mL subcutaneous pen (insulin asp prt-insulin aspart) irbesartan 300 mg tablet See Rx Instructions .Route 03/21/24 08/15/24 Rx .COMPLEX #90 tabs Calcium BYMOUTH 04/24/24 07/22/24 History Vitamin D BYMOUTH 04/24/24 07/22/24 History amlodipine 2.5 mg tablet 2.5 mg PO DAILY #90 tabs 05/31/24 08/15/24 Rx rosuvastatin 20 mg tablet See Rx Instructions .Route 05/31/24 08/15/24 Rx .COMPLEX #90 tabs nebivolol 20 mg tablet See Rx Instructions .Route 06/05/24 08/15/24 Rx .COMPLEX #90 tabs blood sugar diagnostic (Contour #100 ea 06/19/24 07/22/24 Rx Next Test Strips) furosemide 40 mg tablet (Lasix) 40 mg PO QAM #90 tabs 07/16/24 08/15/24 Rx phytonadione (vitamin K1) 1,000 1 mg PO DAILY 07/16/24 08/15/24 History mcg capsule potassium chloride 10 mEq 10 meq PO DAILY #90 caps 07/16/24 08/15/24 Rx capsule,extended release empagliflozin 10 mg tablet 10 mg PO DAILY 30 days #30 tabs 07/22/24 08/15/24 Rx (Jardiance) pen needle, diabetic 32 gauge x #100 ea 07/22/24 08/15/24 Rx (BD Ultra-Fine Madai Pen Needle) silver sulfadiazine 1 % topical 1 applic topical BID #80 oz 07/29/24 08/15/24 Rx cream (Silvadene) cefuroxime axetil 500 mg tablet 500 mg PO Q12H #14 tabs 08/08/24 08/15/24 Rx doxycycline hyclate 100 mg capsule 100 mg PO DAILY #14 caps 08/08/24 08/15/24 Rx Allergies Allergy/AdvReac Type Severity Reaction Status Date / Time Penicillins Allergy Unknown Hives Verified 08/15/24 08:12 scallops Allergy Unknown syncope Verified 08/15/24 08:12 Vital Signs Vital Signs - 24 hr 08/15/24 05:13 08/15/24 05:18 08/15/24 05:19 Temperature Pulse Rate 87 Respiratory Rate 16 16 Blood Pressure 150/66 H Pulse Oximetry 97 97 Oxygen Delivery Room Air Room Air 08/15/24 05:22 08/15/24 05:22 08/15/24 06:13 Temperature 36.5 C Pulse Rate 94 70 Respiratory Rate 19 21 H Blood Pressure 122/71 Pulse Oximetry 98 Oxygen Delivery 08/15/24 06:57 Temperature Pulse Rate 71 Respiratory Rate 19 Blood Pressure 117/61 Pulse Oximetry 98 Oxygen Delivery Exam Narrative: General: Pt is alert awake and in NAD Lungs/Chest: Trachea central Clear BS B/L, No crackles or wheezing. Cardiac: RRR. Normal S1 S2. No murmurs Circulation: Pedal pulses are intact and symmetrical. Abdomen: Normal bowel sounds.. Soft. NT. ND. Extremities: Left leg is swollen red and tender below the knee. Patient has subcutaneous edema. 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 There is open wound on the lateral aspect of left leg : Carranza in place Neurologic: Follows commands. Moves all 4 extremities PERRL AO x3 Skin: No Rash Results Labs 08/15/24 05:20 08/15/24 05:20 Labs: Short CBC 08/15/24 Range/Units 05:20 WBC 13.0 H (4.5-10.0) K/mm3 Hgb 14.7 (14.0-18.0) g/dL Hct 46.1 (42.0-52.0) % Plt Count 280 (150-375) k/mm3 BMP 08/15/24 05:20 Sodium 137 Potassium 5.0 Chloride 101 Carbon Dioxide 26 BUN 56 H D Creatinine 1.13 Glucose 238 H Calcium 9.3 Liver Function 08/15/24 Range/Units 05:20 Total Bilirubin 0.7 (0.2-1.3) mg/dL AST 36 (17-59) U/L ALT 21 (6-50) U/L Alkaline Phosphatase 144 H (38-126) U/L Albumin 3.9 (3.5-5.1) g/dL Quality VTE Prophylaxis VTE prophylaxis: pharmacologic ordered Hospitalist MIPS Advance Care Plan I have confirmed that the patient's Advanced Care Plan is present, code status is documented, or surrogate decision maker is listed in patient medical record.: Yes Medication Reconciliation I have utilized all available resources to obtain, update and review the patients current medications (includes all prescriptions, OTC, herbals, cannabis, and nutritional supplements).: Yes
[2024-08-15] MEDS: CEFEPIME 1 GM/NS 50 ML 1 GM/50 ML BAG IVPB (10:48)
--- NOTE | 2024-08-15 10:49 | PC.NURSE ---
Antibiotics started late due to waiting to get blood cultures done.
[2024-08-15 11:01] LABS: Add Urine Microscopic? YES; Appearance Urine Clear (Clear); Bacteria Urine None Seen /hpf; Bilirubin Urine Negative (Negative); Blood Urine 1+ (Negative); Color Urine Yellow (Yellow); Glucose Urine UA 3+ mg/dL (Negative); Ketones Urine 1+ mg/dL (Negative); Leukocyte Esterase Ur Negative LEU/UL (Negative); Nitrate Urine Negative (Negative); Non Pathogenic Casts 0-2; Protein Urine Negative (Negative); RBC Urine 21-50 /hpf (0-2); Specific Grav Ur 1.028 (1.001-1.035); Squamous Epithelial Cell Urine None Seen /hpf (Few); Urobilinogen Urine 0.2 mg/dL (<2.0); WBC Urine 0-5 /hpf (0-3)
[2024-08-15] MEDS: INSULIN HUMAN ISOPHAN/REGULAR 70/30 (*BKC) 100 UNITS/ML 30 UNITS SUB-Q ×2 (11:03→17:33)
[2024-08-15 11:13] LABS: Acetaminophen 80 ug/mL (10-30); Alanine Aminotransferase 18 U/L (6-50); Albumin Level 3.2 g/dL (3.5-5.1); Alkaline Phosphatase 68 U/L (38-126); Aspartate Amino Transferase 20 U/L (17-59); Bilirubin,Total 0.4 mg/dL (0.2-1.3)
[2024-08-15 11:36] LABS: Amphetamine Screen Urine Negative (Negative); Barbiturate Screen Urine Negative (Negative); Benzodiazepines Screen Urine Negative (Negative); Cannabinoid Screen Urine Negative (Negative); Cocaine Screen Urine Negative (Negative); Methadone Screen Urine Negative (Negative); Opiate Screen Urine Negative (Negative); Phencyclidine Screen Urine Negative (Negative)
[2024-08-15] MEDS: VANCOMYCIN 1,250 MG/NS 250 ML 1,250 MG/250 ML BAG 166.67 MG IVPB ×2 (11:38→12:57)
[2024-08-15 11:41] LABS: Procalcitonin 0.1 ng/mL
[2024-08-15 12:26] LABS: Glucose Point of Care 308 mg/dl (65-105)
--- NOTE | 2024-08-15 14:36 | PM.IMHP ---
H&P: HPI History of Present Illness Date/Time: 08/15/24 14:36 Chief Complaint: Tylenol OD Narrative: 79 year old male states he mixed up his own medications with his tylenol tablets this morning around 4 am tried to make himself vomit but could not. Came into ED for tylenol accidental oD. Pt given charcoal started on iv fluids and NAC pt having regular tylenol and lfts montoring Pt seen by ICU MD poisons control aware. Pt had been managing cellultis of his left leg at home was taking oral abx ibuprofen and tylenol for pain. Pt has history of DM believes he gazed his leg on something at home last week. Review of Systems Review of Systems: Pt feels better denies any abdominal pains or vomiting feels nauseated all other systems are reviewed and negative apart from those in HPI Pt denies SO or HI states it was a accidental OD at 415 in the morning PMFSH Past Medical History Medical History BMI 33.0-33.9,adult Pain and swelling of left lower extremity Peripheral edema Muscle spasms of both lower extremities Encounter for routine adult health examination with abnormal findings Pedal edema Peripheral neuropathy BMI 32.0-32.9,adult Follow up Vitamin D deficiency Acute kidney injury Cellulitis of left foot Gangrenous toe History of elevated prostate specific antigen (PSA) Anxiety Diabetic ulcer of right foot associated with diabetes mellitus due to underlying condition Encounter for postoperative care Left hallux osteomyelitis Diabetes mellitus with neuropathy Hallux valgus Ulcer of left foot due to type 2 diabetes mellitus Hearing loss Color blind PVCs (premature ventricular contractions) Myocardial contusion ASHD (arteriosclerotic heart disease) Abnormal electrocardiography Elevated PSA Non-healing skin lesion Encounter for preventive health examination Diabetes mellitus with hyperglycemia, with long-term current use of insulin Amputation of toe Prostate cancer screening Diabetic foot ulcer Abnormal finding of blood chemistry, unspecified History of prostate cancer Elevated homocysteine CKD (chronic kidney disease) BMI 34.0-34.9,adult Encounter for routine adult health examination without abnormal findings On longterm drug therapy Hyperlipidemia Benign essential hypertension Diabetes mellitus type 2, insulin dependent Surgical History Surgical History Hx of CABG History of foot surgery Family History Family History Sibling Family history of heart disease in male family member before age 55 Grandparent Acute myocardial infarction Other Diabetes mellitus Diabetic foot ulcer Family history of malignant neoplasm Hypertension Social History Social History Smoking status: Never smoker Second hand tobacco smoke exposure: No Alcohol intake: never Drinks per week: 1 Substance use: never Substance use type: does not use Do You Feel Safe in your Home?: Yes Lack of Transportation: No Lack of Food: Never True Current Housing: I Have Housing Concerned About Future Housing: No Difficulty Paying Gas/Electric Bills: No Difficulty Paying for Meds: No Currently Unemployed: No Education: High School Diploma/GED Difficulty w/ Childcare or Family Care: No Living arrangements: with family Spiritual care concerns: No Meds Home Medications and Allergies Home Medications ?Medication ?Instructions ?Recorded ?Confirmed ?Type omega-3 fatty acids 1,000 mg 2,000 mg PO BID 08/06/19 08/15/24 History capsule (Fish Oil Concentrate) blood sugar diagnostic (OneTouch #100 ea 03/11/21 08/15/24 Rx Verio test strips) chromium picolinate 1,000 mcg 1,000 mcg PO DAILY 04/13/21 08/15/24 History tablet zinc 50 mg tablet 50 mg PO DAILY 04/13/21 08/15/24 History aspirin 81 mg capsule 81 mg PO DAILY 07/07/22 08/15/24 History flash glucose scanning reader #1 ea 08/17/22 07/22/24 Rx (FreeStyle Yohannes 2 [place]) flash glucose sensor (FreeStyle #6 ea 08/17/22 07/22/24 Rx Yohannes 2 Sensor kit) Novolog Mix 70-30 FlexPen U-100 45 unit (0.45 mL) subcut BID #15 mL 02/07/24 08/15/24 Rx Insulin 100 unit/mL subcutaneous pen (insulin asp prt-insulin aspart) irbesartan 300 mg tablet See Rx Instructions .Route 03/21/24 08/15/24 Rx .COMPLEX #90 tabs Calcium BYMOUTH 04/24/24 07/22/24 History Vitamin D BYMOUTH 04/24/24 07/22/24 History amlodipine 2.5 mg tablet 2.5 mg PO DAILY #90 tabs 05/31/24 08/15/24 Rx rosuvastatin 20 mg tablet See Rx Instructions .Route 05/31/24 08/15/24 Rx .COMPLEX #90 tabs nebivolol 20 mg tablet See Rx Instructions .Route 06/05/24 08/15/24 Rx .COMPLEX #90 tabs blood sugar diagnostic (Contour #100 ea 06/19/24 07/22/24 Rx Next Test Strips) furosemide 40 mg tablet (Lasix) 40 mg PO QAM #90 tabs 07/16/24 08/15/24 Rx phytonadione (vitamin K1) 1,000 1 mg PO DAILY 07/16/24 08/15/24 History mcg capsule potassium chloride 10 mEq 10 meq PO DAILY #90 caps 07/16/24 08/15/24 Rx capsule,extended release empagliflozin 10 mg tablet 10 mg PO DAILY 30 days #30 tabs 07/22/24 08/15/24 Rx (Jardiance) pen needle, diabetic 32 gauge x #100 ea 07/22/24 08/15/24 Rx 5/32 (BD Ultra-Fine Madai Pen Needle) silver sulfadiazine 1 % topical 1 applic topical BID #80 oz 07/29/24 08/15/24 Rx cream (Silvadene) cefuroxime axetil 500 mg tablet 500 mg PO Q12H #14 tabs 08/08/24 08/15/24 Rx doxycycline hyclate 100 mg capsule 100 mg PO DAILY #14 caps 08/08/24 08/15/24 Rx Allergies Allergy/AdvReac Type Severity Reaction Status Date / Time Penicillins Allergy Unknown Hives Verified 08/15/24 08:12 scallops Allergy Unknown syncope Verified 08/15/24 08:12 Vital Signs Vital Signs - 24 hr 08/15/24 05:13 08/15/24 05:18 08/15/24 05:19 Temperature Pulse Rate 87 Respiratory Rate 16 16 Blood Pressure 150/66 H Pulse Oximetry 97 97 Oxygen Delivery Room Air Room Air 08/15/24 05:22 08/15/24 05:22 08/15/24 06:13 Temperature 36.5 C Pulse Rate 94 70 Respiratory Rate 19 21 H Blood Pressure 122/71 Pulse Oximetry 98 Oxygen Delivery 08/15/24 06:57 08/15/24 08:00 08/15/24 08:00 Temperature 36.5 C Pulse Rate 71 79 77 Respiratory Rate 19 15 Blood Pressure 117/61 124/82 Pulse Oximetry 98 100 Oxygen Delivery 08/15/24 10:00 08/15/24 10:00 08/15/24 11:55 Temperature Pulse Rate 82 82 Respiratory Rate 17 Blood Pressure 125/75 Pulse Oximetry 97 97 Oxygen Delivery Room Air 08/15/24 12:00 08/15/24 12:00 08/15/24 14:00 Temperature 36.3 C L Pulse Rate 80 88 85 Respiratory Rate 19 Blood Pressure 160/77 H Pulse Oximetry 92 Oxygen Delivery 08/15/24 14:00 Temperature Pulse Rate 84 Respiratory Rate 14 Blood Pressure 174/79 H Pulse Oximetry 98 Oxygen Delivery Exam Const: General: comfortable and no acute distress Orientation/consciousness: oriented to person, oriented to place, oriented to time and No confusion Neck: Neck: supple and nontender Resp: Effort & Inspection: normal respiratory effort Cardio: Rate: regular rate Rhythm: regular rhythm Neuro: General: oriented to person, oriented to place, oriented to time and No confusion Extrem: Right upper extremity: normal to inspection Left upper extremity: normal to inspection Other: left leg redness and swelling up to mid [place] with dried red area near the posterior greenfield Psych: Mental Status: mental status grossly normal Affect: normal affect H&P: Results Labs Labs: Short CBC 08/15/24 Range/Units 05:20 WBC 13.0 H (4.5-10.0) K/mm3 Hgb 14.7 (14.0-18.0) g/dL Hct 46.1 (42.0-52.0) % Plt Count 280 (150-375) k/mm3 BMP 08/15/24 05:20 Sodium 137 Potassium 5.0 Chloride 101 Carbon Dioxide 26 BUN 56 H D Creatinine 1.13 Glucose 238 H Calcium 9.3 Liver Function 08/15/24 08/15/24 Range/Units 05:20 10:41 Total Bilirubin 0.7 0.4 (0.2-1.3) mg/dL Direct Bilirubin 0.0 (0-0.3) mg/dL AST 36 20 (17-59) U/L ALT 21 18 (6-50) U/L Alkaline Phosphatase 144 H 68 (38-126) U/L Albumin 3.9 3.2 L (3.5-5.1) g/dL Urine 08/15/24 Range/Units 10:38 Urine Color Yellow (Yellow) Urine Appearance Clear (Clear) Urine pH 5.0 (5.0-9.0) Ur Specific [place] 1.028 (1.001-1.035) Urine Protein Negative (Negative) mg/dL Urine Glucose (UA) 3+ H (Negative) mg/dL Assessment and Plan Assessment and plan (1) Accidental acetaminophen overdose: Code(s): T39.1X1A - Poisoning by 4-Aminophenol derivatives, accidental (unintentional), initial encounter Status: Acute Assessment and Plan: Continue to watch pt clinically in icu Poison control on board continue hydration with IV fluids Continue nac infusion Icu md on board Watch lfts and tylenol levels (2) Cellulitis of left leg: Code(s): L03.116 - Cellulitis of left lower limb Status: Acute Assessment and Plan: Continue IV vancomycin and cefepime. CT of leg ordered to check [place] [id number] continue to monitor (3) CKD (chronic kidney disease): Qualifiers: Chronic kidney disease stage: stage 1 Qualified Code(s): N18.1 - Chronic kidney disease, stage 1 Code(s): N18.9 - Chronic kidney disease, unspecified Status: Acute Assessment and Plan: Watch bmp function (4) Diabetes mellitus type 2, insulin dependent: Code(s): E11.9 - Type 2 diabetes mellitus without complications; Z79.4 - retirement (current) use of insulin Status: Acute Assessment and Plan: Continue accuchecks, ssi (5) Benign essential hypertension: Code(s): I10 - Essential (primary) hypertension Status: Acute Assessment and Plan: Continue to watch BP presently 174/79 (6) Hx of CABG: Code(s): Z95.1 - Presence of aortocoronary bypass graft Status: Acute Assessment and Plan: Continue home medications for BP and DM Plan full code code status scd for dvt prop DM diet if feeling better Hospitalist MIPS Advance Care Plan I have confirmed that the patient's Advanced Care Plan is present, code status is documented, or surrogate decision maker is listed in patient medical record.: Yes Medication Reconciliation The patient is not eligible for med reconciliation; the patient is in a emergent medical situation where delaying treatment would jeopardize the patients health.: Yes
[2024-08-15] MEDS: amLODIPine BESYLATE 2.5 MG TABLET PO (15:08)
[2024-08-15] MEDS: hydrALAZINE HCL 20 MG/ML VIAL IV PUSH (15:34)
[2024-08-15 17:09] LABS: Glucose Point of Care 141 mg/dl (65-105)
[2024-08-15] MEDS: SILVER SULFADIAZINE 1% CR 400 GM JAR (*BKC) 1 APPLIC TOPICAL (17:34)
[2024-08-15] MEDS: CEFEPIME 2 GM/NS 50 ML 2 GM/50 ML BAG IVPB (20:13)
[2024-08-15 20:24] LABS: Glucose Point of Care 163 mg/dl (65-105)
[2024-08-15 20:25] LABS: Acetaminophen < 10 ug/mL (10-30)
[2024-08-15 20:29] LABS: Alanine Aminotransferase 16 U/L (6-50); Alkaline Phosphatase 70 U/L (38-126); Aspartate Amino Transferase 21 U/L (17-59); Bilirubin,Total 0.4 mg/dL (0.2-1.3)
[2024-08-16] VITALS (9 sets, daily range): BP systolic 134–161; BP diastolic 65–107; PULSE 86–102; RESP 14–21; TEMP 36.6–36.9; O2SAT 94–98
[2024-08-16] MEDS: LACTATED RINGERS 1,000 ML 75 ML IV CONT (00:01)
[2024-08-16 02:29] LABS: Hematocrit 41.8 % (42.0-52.0); Hemoglobin 13.4 g/dL (14.0-18.0); Mean Corpuscular HGB Conc 32.1 g/dl (32-36); Mean Corpuscular Hemoglobin 27.7 pg (26-34); Mean Corpuscular Volume 86.5 fl (80-100); Mean Platelet Volume 9.5 fl (7.4-10.4); Platelet Count Result 254 k/mm3 (150-375); Red Blood Count 4.83 M/mm3 (4.6-6.20); Red Cell Distribution Width 14.6 % (11.5-14.5)
[2024-08-16 02:42] LABS: INR 1.2; Prothrombin Time 15.1 Seconds (11.1-14.7)
[2024-08-16 02:43] LABS: Acetaminophen < 10 ug/mL (10-30)
[2024-08-16 02:47] LABS: Alanine Aminotransferase 15 U/L (6-50); Albumin Level 2.9 g/dL (3.5-5.1); Alkaline Phosphatase 74 U/L (38-126); Anion Gap 6 mmol/L (4-12); Aspartate Amino Transferase 18 U/L (17-59); Bilirubin,Total 0.5 mg/dL (0.2-1.3); Blood Urea Nitrogen 33 mg/dL (9-20); Carbon Dioxide 24 mmol/L (22-30); Chloride 106 mmol/L (98-107); Estimated CRCL calculation 76 ml/min; Estimated Glomerular Filt Rate > 60; Glucose 157 mg/dL (65-110); Potassium 3.4 mmol/L (3.4-5.0); Sodium 136 mmol/L (137-145)
[2024-08-16] MEDS: INSULIN HUMAN ISOPHAN/REGULAR 70/30 (*BKC) 100 UNITS/ML 30 UNITS SUB-Q ×2 (06:26→16:37)
[2024-08-16 07:27] LABS: Glucose Point of Care 183 mg/dl (65-105)
[2024-08-16 07:44] LABS: Glucose Point of Care 175 mg/dl (65-105)
[2024-08-16] MEDS: VANCOMYCIN 1,500 MG/NS 500 ML 1,500 MG/500 ML BAG 250 MG IVPB (08:00)
[2024-08-16] MEDS: amLODIPine BESYLATE 2.5 MG TABLET PO (08:00)
[2024-08-16] MEDS: SILVER SULFADIAZINE 1% CR 400 GM JAR (*BKC) 1 APPLIC TOPICAL ×2 (08:00→16:38)
[2024-08-16] MEDS: ENOXAPARIN 40 MG/0.4 ML SYRINGE SUB-Q (08:00)
[2024-08-16] MEDS: IRBESARTAN 150 MG TABLET 300 MG BY MOUTH (08:00)
[2024-08-16] MEDS: CEFEPIME 2 GM/NS 50 ML 2 GM/50 ML BAG IVPB (08:49)
[2024-08-16] MEDS: POTASSIUM CHLORIDE 20 MEQ ER TABLET 40 MEQ PO ×2 (08:55→15:42)
--- NOTE | 2024-08-16 09:47 | PM.IMPN ---
Progress Note: A&P Assessment and Plan (1) Accidental acetaminophen overdose: Code(s): T39.1X1A - Poisoning by 4-Aminophenol derivatives, accidental (unintentional), initial encounter Status: Acute Assessment and Plan: Accidental acetaminophen overdose Initial level 247 with normal LFTs Patient was treated with a course of N-acetylcysteine infusion His LFTs remain normal and S2 modified level cleared. NAC infusion now discontinue Poison control was notified at the time of admission Discontinue further IV fluid (2) Leg ulcer, left: Code(s): L97.929 - Non-pressure chronic ulcer of unspecified part of left lower leg with unspecified severity Status: Acute Assessment and Plan: Likely venous ulcer Consult wound care. Local wound care Management of cellulitis as below (3) Cellulitis of left leg: Code(s): L03.116 - Cellulitis of left lower limb Status: Acute Assessment and Plan: Left leg has cellulitis words soft tissue edema CT scan of the left leg showed No discrete fluid collections. Significant edema and degenerative bony disease without secondary signs to suggest osteomyelitis (although MRI would be more sensitive, if patient is clinically able). Currently on vancomycin and cefepime. His WBCs closed normal and procalcitonin level is low status stable guess sepsis. Will switch to p.o. antibiotics Patient allergic to penicillin but has tolerated cephalosporin as an outpatient blood culture have been sent and are pending (4) Swelling of left lower extremity: Code(s): M79.89 - Other specified soft tissue disorders Status: Acute Assessment and Plan: lower extremity Doppler negative for DVT (5) CKD (chronic kidney disease): Qualifiers: Chronic kidney disease stage: stage 1 Qualified Code(s): N18.1 - Chronic kidney disease, stage 1 Code(s): N18.9 - Chronic kidney disease, unspecified Status: Acute Assessment and Plan: Creatinine appears to be close to baseline. 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 Status: Acute Assessment and Plan: 70/30 insulin, SSI (7) Electrolyte abnormality: Code(s): E87.8 - Other disorders of electrolyte and fluid balance, not elsewhere classified Status: Acute Assessment and Plan: Replace low potassium (8) Benign essential hypertension: Code(s): I10 - Essential (primary) hypertension Status: Acute Assessment and Plan: Continue amlodipine and irbesartan Plan DVT prophylaxis -Lovenox Nutrition -diet ordered Code Status - Full Code Consult PT OT Incentive spirometer Transfer out of ICU today Subjective Date/time seen: 08/16/24 Complains of neuropathy pain in the legs left worse than right. Denies any fever dyspnea chest pain shortness a breath cough or abdominal pain. All the systems were reviewed and were negative. Tolerating p.o. diet. Afebrile. Good urine output Review of Systems Review of Systems: All systems reviewed & are unremarkable except as noted in HPI and below (HB) Exam Narrative: General: Pt is alert awake and in NAD Lungs/Chest: Trachea central Clear BS B/L, No crackles or wheezing. Cardiac: RRR. Normal S1 S2. No murmurs Circulation: Pedal pulses are intact and symmetrical. Abdomen: Normal bowel sounds.. Soft. NT. ND. Extremities: Left leg is swollen red and tender below the knee. Patient has subcutaneous edema. 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 There is open wound on the lateral aspect of left leg : Carranza in place Neurologic: Follows commands. Moves all 4 extremities PERRL AO x3 Skin: No Rash Objective Data Vital Signs Vital Signs: Vital Signs - 24 hr 08/15/24 10:00 08/15/24 10:00 08/15/24 11:55 Temperature Pulse Rate 82 82 Respiratory Rate 17 Blood Pressure 125/75 Pulse Oximetry 97 97 Oxygen Delivery Room Air 08/15/24 12:00 08/15/24 12:00 08/15/24 14:00 Temperature 36.3 C L Pulse Rate 80 88 85 Respiratory Rate 19 Blood Pressure 160/77 H Pulse Oximetry 92 Oxygen Delivery 08/15/24 14:00 08/15/24 15:25 08/15/24 15:44 Temperature Pulse Rate 84 Respiratory Rate 14 Blood Pressure 174/79 H 183/83 H 148/64 H Pulse Oximetry 98 Oxygen Delivery 08/15/24 16:00 08/15/24 16:00 08/15/24 18:00 Temperature 36.4 C Pulse Rate 89 91 97 Respiratory Rate 18 Blood Pressure 138/53 L Pulse Oximetry 98 Oxygen Delivery 08/15/24 18:00 08/15/24 20:00 08/15/24 20:00 Temperature 36.8 C Pulse Rate 73 95 95 Respiratory Rate 18 19 19 Blood Pressure 138/70 130/81 Pulse Oximetry 96 97 97 Oxygen Delivery Room Air 08/15/24 20:00 08/15/24 22:00 08/15/24 22:00 Temperature Pulse Rate 90 92 92 Respiratory Rate 18 Blood Pressure 112/59 L Pulse Oximetry 96 Oxygen Delivery 08/16/24 00:00 08/16/24 00:00 08/16/24 00:00 Temperature 36.8 C Pulse Rate 93 99 102 H Respiratory Rate 19 19 Blood Pressure 136/70 Pulse Oximetry 97 97 Oxygen Delivery Room Air 08/16/24 02:00 08/16/24 02:00 08/16/24 04:00 Temperature 36.9 C Pulse Rate 94 94 88 Respiratory Rate 21 H 20 Blood Pressure 149/72 H 134/107 H Pulse Oximetry 96 94 Oxygen Delivery 08/16/24 04:00 08/16/24 04:00 08/16/24 06:00 Temperature Pulse Rate 86 86 91 Respiratory Rate 20 Blood Pressure Pulse Oximetry 97 Oxygen Delivery Room Air 08/16/24 06:00 08/16/24 08:00 08/16/24 08:00 Temperature 36.7 C Pulse Rate 91 91 88 Respiratory Rate 19 18 Blood Pressure 158/71 H 146/70 H Pulse Oximetry 96 96 Oxygen Delivery Intake/Output Intake/Output: Intake & Output 08/13/24 08/14/24 08/15/24 08/16/24 23:59 23:59 23:59 23:59 Intake Total 4289.25 2893.2 Output Total 2400 600 Balance 1889.25 2293.2 Meds/Results Medications: Active Medications Generic Name Dose Route Start Last Admin Trade Name Freq PRN Reason Stop Dose Admin Amlodipine Besylate 2.5 mg 08/15/24 14:45 08/16/24 08:00 Amlodipine Besylate 2.5 Mg Tablet PO 2.5 mg DAILY MAGGIE Administration Dextrose 12.5 gm 08/15/24 08:29 Dextrose 50% 25 Gm/50 Ml Syringe IV PUSH PRN PRN Hypoglycemia Protocol Enoxaparin Sodium 40 mg 08/16/24 09:00 08/16/24 08:00 Enoxaparin 40 Mg/0.4 Ml Syringe SUB-Q 40 mg DAILY MAGGIE Administration Glucagon 1 mg 08/15/24 08:29 Glucagon For Inj 1 Mg Vial IM PRN PRN Hypoglycemia Protocol Glucose 15 gm 08/15/24 08:29 Glucose Oral Gel 15 Gm Of Glucse In 37.5 Gm Tube PO PRN PRN Hypoglycemia Protocol Hydralazine HCl 20 mg 08/15/24 14:47 08/15/24 15:34 Hydralazine Hcl 20 Mg/Ml Vial IV PUSH 20 mg Q4H PRN Administration SBP more than 160 Dextrose 1,000 mls @ 100 mls/hr 08/15/24 08:29 Dextrose 5% 1,000 Ml IVPB PRN PRN Hypoglycemia Protocol Cefepime HCl 2 gm in 50 mls @ 100 mls/hr 08/15/24 21:00 08/16/24 09:20 Maxipime 2 Gm/Ns 50 Ml IVPB Infused Q12H MAGGIE Infusion Vancomycin HCl 1,500 mg in 500 mls @ 250 mls/hr 08/16/24 08:00 08/16/24 08:00 Vancomycin 1,500 Mg/Ns 500 Ml IVPB 250 mls/hr Q18H MAGGIE Administration Insulin Aspart 4 - 8 units 08/15/24 12:00 08/16/24 07:32 Insulin Aspart (*Bkc) 100 Units/Ml SUB-Q Not Given TIDWM [facility] Protocol Insulin Aspart 2 - 4 units 08/15/24 21:00 08/15/24 20:14 Insulin Aspart (*Bkc) 100 Units/Ml SUB-Q Not Given HS [facility] Protocol Insulin Human Isoph/Insulin Regular 30 units 08/15/24 10:10 08/16/24 06:26 Insulin Human Isophan/Regular 70/30 (*Bkc) 100 Units/Ml SUB-Q 30 units BIDAC MAGGIE Administration Irbesartan 300 mg 08/16/24 09:00 08/16/24 08:00 Irbesartan 150 Mg Tablet BY MOUTH 300 mg DAILY [facility] Administration Labetalol HCl 20 mg 08/15/24 14:47 Labetalol Hcl Inj 100 Mg/20 Ml Vial IV PUSH Q4H PRN SBP > 160 and HR> 60 -1st choice Ondansetron HCl 4 mg 08/15/24 06:36 08/15/24 09:03 Ondansetron Inj 4 Mg/2 Ml Vial IV PUSH 4 mg Q4H PRN Administration Nausea Oxycodone HCl 5 mg 08/16/24 08:54 Oxycodone Hcl (*Crx) 5 Mg Tab Ir PO Q4H PRN Pain Rated 7-10 Potassium Chloride 40 meq 08/16/24 08:50 08/16/24 08:55 Potassium Chloride 20 Meq Er Tablet PO 08/16/24 14:51 40 meq Q6H MAGGIE Administration Silver Sulfadiazine 1 applic 08/15/24 17:00 08/16/24 08:00 Silver Sulfadiazine 1% Cr 400 Gm Jar (*Bkc) TOPICAL 1 applic BID MAGGIE Administration Radiology Results: ITS Impressions Chest X-Ray 08/15/24 07:23 IMPRESSION: 1. Mild atelectasis in right perihilar region and left lower lung zone. Lower Extremity CT 08/15/24 10:18 IMPRESSION: No discrete fluid collections. Significant edema and degenerative bony disease without secondary signs to suggest osteomyelitis (although MRI would be more sensitive, if patient is clinically able). Venous Doppler Study 08/15/24 11:20 IMPRESSION: Soft tissue edema, without deep venous thrombosis within the left lower extremity. Labs Labs: Laboratory Results - last 24 hr 08/15/24 08/15/24 08/15/24 08:31 10:38 10:41 WBC RBC Hgb Hct MCV MCH MCHC RDW Plt Count MPV PT INR Sodium Potassium Chloride Carbon Dioxide Anion Gap BUN Creatinine Estim Creat Clear Calc Estimated GFR Glucose POC Capillary Glucose Calcium Magnesium Total Bilirubin 0.4 Direct Bilirubin 0.0 AST 20 ALT 18 Alkaline Phosphatase 68 Total Protein 6.0 L Albumin 3.2 L Procalcitonin 0.1 Urine Color Yellow Urine Appearance Clear Urine pH 5.0 Ur Specific [place] 1.028 Urine Protein Negative Urine Glucose (UA) 3+ H Urine Ketones 1+ H Ur Blood (Man) 1+ H Urine Nitrate Negative Urine Bilirubin Negative Urine Urobilinogen 0.2 Leukocyte Esterase Rfl Negative Urine RBC 21-50 H Urine WBC 0-5 Ur Squamous Epith Cells None seen Urine Bacteria None seen Urine Casts 0-2 Nasal MRSA (PCR) Not detected Urine Opiates Screen Negative Urine Methadone Screen Negative Acetaminophen 80 H Ur Barbiturates Screen Negative Ur Phencyclidine Scrn Negative Ur Amphetamine Screen Negative U Benzodiazepines Scrn Negative Urine Cocaine Screen Negative U Cannabinoids Screen Negative 08/15/24 08/15/24 08/15/24 12:22 17:01 20:03 WBC RBC Hgb Hct MCV MCH MCHC RDW Plt Count MPV PT INR Sodium Potassium Chloride Carbon Dioxide Anion Gap BUN Creatinine Estim Creat Clear Calc Estimated GFR Glucose POC Capillary Glucose 308 H 141 H Calcium Magnesium Total Bilirubin 0.4 Direct Bilirubin 0.0 AST 21 ALT 16 Alkaline Phosphatase 70 Total Protein 6.0 L Albumin 3.0 L Procalcitonin Urine Color Urine Appearance Urine pH Ur Specific [place] Urine Protein Urine Glucose (UA) Urine Ketones Ur Blood (Man) Urine Nitrate Urine Bilirubin Urine Urobilinogen Leukocyte Esterase Rfl Urine RBC Urine WBC Ur Squamous Epith Cells Urine Bacteria Urine Casts Nasal MRSA (PCR) Urine Opiates Screen Urine Methadone Screen Acetaminophen < 10 L Ur Barbiturates Screen Ur Phencyclidine Scrn Ur Amphetamine Screen U Benzodiazepines Scrn Urine Cocaine Screen U Cannabinoids Screen 08/15/24 08/16/24 08/16/24 20:10 02:21 06:24 WBC 11.0 H RBC 4.83 Hgb 13.4 L Hct 41.8 L MCV 86.5 MCH 27.7 MCHC 32.1 RDW 14.6 H Plt Count 254 MPV 9.5 PT 15.1 H INR 1.2 Sodium 136 L Potassium 3.4 Chloride 106 Carbon Dioxide 24 Anion Gap 6 BUN 33 H D Creatinine 0.77 Estim Creat Clear Calc 76 Estimated GFR > 60 Glucose 157 H POC Capillary Glucose 163 H 183 H Calcium 8.0 L Magnesium 2.0 Total Bilirubin 0.5 Direct Bilirubin AST 18 ALT 15 Alkaline Phosphatase 74 Total Protein 6.0 L Albumin 2.9 L Procalcitonin Urine Color Urine Appearance Urine pH Ur Specific [place] Urine Protein Urine Glucose (UA) Urine Ketones Ur Blood (Man) Urine Nitrate Urine Bilirubin Urine Urobilinogen Leukocyte Esterase Rfl Urine RBC Urine WBC Ur Squamous Epith Cells Urine Bacteria Urine Casts Nasal MRSA (PCR) Urine Opiates Screen Urine Methadone Screen Acetaminophen < 10 L Ur Barbiturates Screen Ur Phencyclidine Scrn Ur Amphetamine Screen U Benzodiazepines Scrn Urine Cocaine Screen U Cannabinoids Screen 08/16/24 07:29 WBC RBC Hgb Hct MCV MCH MCHC RDW Plt Count MPV PT INR Sodium Potassium Chloride Carbon Dioxide Anion Gap BUN Creatinine Estim Creat Clear Calc Estimated GFR Glucose POC Capillary Glucose 175 H Calcium Magnesium Total Bilirubin Direct Bilirubin AST ALT Alkaline Phosphatase Total Protein Albumin Procalcitonin Urine Color Urine Appearance Urine pH Ur Specific [place] Urine Protein Urine Glucose (UA) Urine Ketones Ur Blood (Man) Urine Nitrate Urine Bilirubin Urine Urobilinogen Leukocyte Esterase Rfl Urine RBC Urine WBC Ur Squamous Epith Cells Urine Bacteria Urine Casts Nasal MRSA (PCR) Urine Opiates Screen Urine Methadone Screen Acetaminophen Ur Barbiturates Screen Ur Phencyclidine Scrn Ur Amphetamine Screen U Benzodiazepines Scrn Urine Cocaine Screen U Cannabinoids Screen Quality VTE Prophylaxis VTE prophylaxis: pharmacologic ordered
[2024-08-16] MEDS: oxyCODONE HCL (*CRX) 5 MG TAB IR PO ×3 (10:00→23:37)
[2024-08-16 11:45] LABS: Glucose Point of Care 119 mg/dl (65-105)
[2024-08-16 11:54] LABS: Free T4 Free Thyroxine 1.21 ng/dL (0.78-2.19)
[2024-08-16 16:51] LABS: Glucose Point of Care 130 mg/dl (65-105)
--- NOTE | 2024-08-16 20:05 | PC.NURSE ---
Updated patient that he is being transferred to [facility]. Vitals taken. Patient is alert & oriented x3. Patient stated the pain he feels in his leg he thinks is neuropathy and is currently not taking anything for it, but had talked to his outside primary about taking something for it. Dressings on left leg & left foot are dry and intact. SBAR was tubed to 3rd med/sx floor & called. Waiting to provide report & transfer patient.
--- NOTE | 2024-08-16 20:15 | PC.NURSE ---
This patient, Eldon Gonzales, was transferred to [facility] on 08/16/24 at 2015. Personal belongings sent with patient. Report given to [place]. Appropriate documentation sent with patient.
[2024-08-16] MEDS: cefuroxime axetiL 250 MG TABLET 500 MG PO (21:16)
[2024-08-16] MEDS: DOXYCYCLINE HYCLATE 100 MG TABLET PO (21:16)
[2024-08-16 21:29] LABS: Glucose Point of Care 67 mg/dl (65-105)
[2024-08-16 22:35] LABS: Glucose Point of Care 110 mg/dl (65-105)
[2024-08-17] VITALS: BP 138/60; PULSE 88; RESP 18; TEMP 37.3; O2SAT 96
[2024-08-17 05:27] LABS: Glucose Point of Care 110 mg/dl (65-105)
[2024-08-17 06:19] VITALS: BP 153/82; PULSE 94; RESP 18; TEMP 37.8; O2SAT 95
[2024-08-17 07:25] LABS: Hematocrit 40.8 % (42.0-52.0); Hemoglobin 12.6 g/dL (14.0-18.0); Mean Corpuscular HGB Conc 30.9 g/dl (32-36); Mean Corpuscular Hemoglobin 27.3 pg (26-34); Mean Corpuscular Volume 88.3 fl (80-100); Mean Platelet Volume 9.2 fl (7.4-10.4); Platelet Count Result 245 k/mm3 (150-375); Red Blood Count 4.62 M/mm3 (4.6-6.20); White Blood Count 8.2 K/mm3 (4.5-10.0)
[2024-08-17 07:42] LABS: Alanine Aminotransferase 17 U/L (6-50); Alkaline Phosphatase 79 U/L (38-126); Anion Gap 3 mmol/L (4-12); Aspartate Amino Transferase 23 U/L (17-59); Bilirubin,Total 0.6 mg/dL (0.2-1.3); Blood Urea Nitrogen 24 mg/dL (9-20); Calcium 8.9 mg/dL (8.4-10.2); Carbon Dioxide 27 mmol/L (22-30); Chloride 109 mmol/L (98-107); Estimated CRCL calculation 78 ml/min; Estimated Glomerular Filt Rate > 60; Glucose 105 mg/dL (65-110); Magnesium 2.1 mg/dL (1.6-2.3); Potassium 4.2 mmol/L (3.4-5.0); Sodium 139 mmol/L (137-145)
[2024-08-17 07:44] LABS: T3 Free 2.7 pg/mL (2.3-4.2)
[2024-08-17 07:51] LABS: INR 1.1; Prothrombin Time 14.5 Seconds (11.1-14.7)
[2024-08-17 08:26] LABS: Glucose Point of Care 119 mg/dl (65-105)
[2024-08-17] MEDS: cefuroxime axetiL 250 MG TABLET 500 MG PO (09:42)
[2024-08-17] MEDS: amLODIPine BESYLATE 2.5 MG TABLET PO (09:42)
[2024-08-17] MEDS: IRBESARTAN 150 MG TABLET 300 MG BY MOUTH (09:42)
[2024-08-17] MEDS: DOXYCYCLINE HYCLATE 100 MG TABLET PO (09:42)
[2024-08-17] MEDS: ENOXAPARIN 40 MG/0.4 ML SYRINGE SUB-Q (09:42)
--- NOTE | 2024-08-17 10:07 | P.DS_ITS ---
DS: Admitting Diagnosis Discharge Date 08/17/2024 Admitting Diagnosis Tylenol overdose DS: Discharge Diagnosis Discharge Diagnosis (1) Accidental acetaminophen overdose: Code(s): T39.1X1A - Poisoning by 4-Aminophenol derivatives, accidental (unintentional), initial encounter Status: Acute Assessment and Plan: Accidental acetaminophen overdose Initial level 247 with normal LFTs Patient was treated with a course of N-acetylcysteine infusion His LFTs remain normal and S2 modified level cleared. NAC infusion now discontinue Poison control was notified at the time of admission Discontinue further IV fluid (2) Leg ulcer, left: Code(s): L97.929 - Non-pressure chronic ulcer of unspecified part of left lower leg with unspecified severity Status: Acute Assessment and Plan: Likely venous ulcer Consult wound care. Local wound care Management of cellulitis as below (3) Cellulitis of left leg: Code(s): L03.116 - Cellulitis of left lower limb Status: Acute Assessment and Plan: Left leg has cellulitis words soft tissue edema CT scan of the left leg showed No discrete fluid collections. Significant edema and degenerative bony disease without secondary signs to suggest osteomyelitis (although MRI would be more sensitive, if patient is clinically able). Currently on vancomycin and cefepime. His WBCs closed normal and procalcitonin level is low status stable guess sepsis. Will switch to p.o. antibiotics Patient allergic to penicillin but has tolerated cephalosporin as an outpatient blood culture have been sent and are pending (4) Swelling of left lower extremity: Code(s): M79.89 - Other specified soft tissue disorders Status: Acute Assessment and Plan: lower extremity Doppler negative for DVT (5) CKD (chronic kidney disease): Qualifiers: Chronic kidney disease stage: stage 1 Qualified Code(s): N18.1 - Chronic kidney disease, stage 1 Code(s): N18.9 - Chronic kidney disease, unspecified Status: Acute Assessment and Plan: Creatinine appears to be close to baseline. 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 insulin Status: Acute Assessment and Plan: 70/30 insulin, SSI (7) Electrolyte abnormality: Code(s): E87.8 - Other disorders of electrolyte and fluid balance, not elsewhere classified Status: Acute Assessment and Plan: Replace low potassium (8) Benign essential hypertension: Code(s): I10 - Essential (primary) hypertension Status: Acute Assessment and Plan: Continue amlodipine and irbesartan Plan DVT prophylaxis -Lovenox Nutrition -diet ordered Code Status - Full Code Consult PT OT Incentive spirometer Transfer out of ICU today DS: Summary Hospital Course Reason for hospitalization: Accidental Tylenol overdose Hospital Course: 79-year-old male was admitted with complaint of having accidental Tylenol overdose. On day 1 patient Tylenol level was very high. Patient was given a treatment cycle of N acetylcysteine. Today patient time level less than 10. Patient is feeling better. Patient was discharged home stable condition, follow-up scheduled. Status at Discharge Cognitive/behavioral status at discharge: Stable Time Spent with Patient Time attestation: Total time spent providing and/or coordinating discharge services: 30 minutes Exam Narrative: General: Pt is alert awake and in NAD Lungs/Chest: Trachea central Clear BS B/L, No crackles or wheezing. Cardiac: RRR. Normal S1 S2. No murmurs Circulation: Pedal pulses are intact and symmetrical. Abdomen: Normal bowel sounds.. Soft. NT. ND. Extremities: Left leg is swollen red and tender below the knee. Patient has subcutaneous edema. 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 There is open wound on the lateral aspect of left leg : Carranaz in place Neurologic: Follows commands. Moves all 4 extremities PERRL AO x3 Skin: No Rash Const: General: comfortable and no acute distress; No confusion Orientation/consciousness: oriented to person, oriented to place, oriented to time and No confusion Neck: Neck: supple and nontender Resp: Effort & Inspection: normal respiratory effort Cardio: Rate: regular rate Rhythm: regular rhythm Neuro: General: oriented to person, oriented to place, oriented to time and No confusion Extrem: Right upper extremity: normal to inspection Left upper extremity: normal to inspection Other: left leg redness and swelling up to mid [place] with dried red area near the posterior greenfield Psych: Mental Status: mental status grossly normal Affect: normal affect DS: Data Data Completed and Pending Labs on day of discharge: Labs from last 24 hours 08/17/24 08/17/24 08/17/24 08:03 07:02 05:23 WBC 8.2 RBC 4.62 Hgb 12.6 L Hct 40.8 L MCV 88.3 MCH 27.3 MCHC 30.9 L RDW 15.0 H Plt Count 245 MPV 9.2 PT 14.5 INR 1.1 Sodium 139 Potassium 4.2 Chloride 109 H Carbon Dioxide 27 Anion Gap 3 L BUN 24 H Creatinine 0.77 Estim Creat Clear Calc 78 Estimated GFR > 60 Glucose 105 POC Capillary Glucose 119 H 110 H Calcium 8.9 Magnesium 2.1 Total Bilirubin 0.6 AST 23 ALT 17 Alkaline Phosphatase 79 Total Protein 6.0 L Albumin 3.0 L Free T4 Free T3 pg/mL 08/16/24 08/16/24 08/16/24 22:33 21:12 16:35 WBC RBC Hgb Hct MCV MCH MCHC RDW Plt Count MPV PT INR Sodium Potassium Chloride Carbon Dioxide Anion Gap BUN Creatinine Estim Creat Clear Calc Estimated GFR Glucose POC Capillary Glucose 110 H 67 130 H Calcium Magnesium Total Bilirubin AST ALT Alkaline Phosphatase Total Protein Albumin Free T4 Free T3 pg/mL 08/16/24 08/16/24 11:35 02:18 WBC RBC Hgb Hct MCV MCH MCHC RDW Plt Count MPV PT INR Sodium Potassium Chloride Carbon Dioxide Anion Gap BUN Creatinine Estim Creat Clear Calc Estimated GFR Glucose POC Capillary Glucose 119 H Calcium Magnesium Total Bilirubin AST ALT Alkaline Phosphatase Total Protein Albumin Free T4 1.21 Free T3 pg/mL 2.7 Preliminary micro results at discharge 08/15/24 10:50 Blood Culture - Preliminary Blood 08/15/24 10:42 Blood Culture - Preliminary Blood Discharge Plan Discharge Attending physician on discharge: Chucho Alas Consulting providers: Russ Boateng Discharging Clinician: Chucho Alas Activity: as tolerated Diet: as tolerated Patient Instructions: Acetaminophen Overdose (GEN) Patient Language: Slovak Follow-up/Referrals: [facility] [Provider Group] Discharge Medications: No Action (DME) FreeStyle Yohannes 2 [place] Misc See Rx Instructions .Route Qty: 1 0RF Rx Instructions: Use to continuously monitor BS (DME) FreeStyle Yohannes 2 Sensor Kit See Rx Instructions .Route Qty: 6 3RF Rx Instructions: Use to continuously monitor BS Calcium BYMOUTH Patient Comments: Patient doesn't know the dosage Vitamin D BYMOUTH Patient Comments: Patient doesn't know dosage (DME) pen needle, diabetic [BD Ultra-Fine Madai Pen Needle] 32 gauge x 5/32 needle See Rx Instructions .Route Qty: 100 0RF Rx Instructions: USE TWO TIMES A DAY WITH INSULIN INJECTIONS DIRECTED omega-3 fatty acids [Fish Oil Concentrate] 1,000 mg capsule 2,000 mg PO BID chromium picolinate 1,000 mcg tablet 1,000 mcg PO DAILY zinc 50 mg tablet 50 mg PO DAILY phytonadione (vitamin K1) 1,000 mcg capsule 1 mg PO DAILY furosemide [Lasix] 40 mg tablet 40 mg PO QAM Qty: 90 1RF Rx Instructions: Please D/C the HCTZ. Thank you potassium chloride 10 mEq capsule, extended release 10 meq PO DAILY Qty: 90 1RF aspirin 81 mg Capsule 81 mg PO DAILY (DME) OneTouch Verio test strips Strip See Rx Instructions .ROUTE .MEDSUPPLY Qty: 100 11RF Rx Instructions: Use to test BS three times a day insulin asp prt-insulin aspart [Novolog Mix 70-30FlexPen U-100] 100 unit/mL (70-30) insulin pen 45 unit subcut BID Qty: 15 1RF Patient Comments: Patient states he doesn't take 45 units just depends on his blood sugar irbesartan 300 mg tablet See Rx Instructions .ROUTE .COMPLEX Qty: 90 3RF Dose Instruction: TAKE ONE TABLET BY MOUTH ONCE DAILY Rx Instructions: TAKE ONE TABLET BY MOUTH ONCE DAILY rosuvastatin 20 mg tablet See Rx Instructions .ROUTE .COMPLEX Qty: 90 1RF Dose Instruction: TAKE 1 TABLET BY MOUTH EVERY DAY Rx Instructions: TAKE 1 TABLET BY MOUTH EVERY DAY amlodipine 2.5 mg tablet 2.5 mg PO DAILY Qty: 90 0RF nebivolol 20 mg tablet See Rx Instructions .ROUTE .COMPLEX Qty: 90 1RF Dose Instruction: TAKE 1 TABLET BY MOUTH EVERY DAY Rx Instructions: TAKE 1 TABLET BY MOUTH EVERY DAY (DME) Contour Next Test Strips Strip See Rx Instructions .Route Qty: 100 5RF Rx Instructions: Use 1 test strip 3-4 times daily for blood glucose checks Jardiance 10 mg tablet 10 mg PO DAILY 30 Days Qty: 30 2RF silver sulfadiazine [Silvadene] 1 % cream 1 applic topical BID Qty: 80 1RF Rx Instructions: apply a 1.5 mm thickness cefuroxime axetil 500 mg tablet 500 mg PO Q12H Qty: 14 0RF doxycycline hyclate 100 mg capsule 100 mg PO DAILY Qty: 14 0RF Rx Instructions: Please D/C the Clindamycin. Thank you Date of admission: 08/16/24 10:00 Primary Care Provider: PHYSICIAN NOT ON STAFF,NONSTAFF Admitting Provider: Stephan Howe V. Attending physician on admission: Stephan Howe V. Condition: Stable Quality VTE Prophylaxis VTE prophylaxis: pharmacologic ordered
[2024-08-17] MEDS: SILVER SULFADIAZINE 1% CR 400 GM JAR (*BKC) 1 APPLIC TOPICAL (10:12)
--- NOTE | 2024-08-17 14:01 | PC.NURSE ---
Patient resting in bed for assessment. Patient eager to go home. Patient very friendly and cooperative. Patient educted I would return when DC papers were ready. Ice, water, and diet soda brought to room.
--- OUTSIDE RECORDS SUMMARY | 2024-08-22 09:33 | XMS_ITS | Encounter Summary ---
Author Organization [facility] Address [address] [place] [address] Care Team Providers Care Carton Catcher Name Role Phone Frank Roberson MD Primary Care Provider [phone] Encounter Details Date Type Department Care Team (Latest Contact Info) Description 10/05/2015 Hospital Outpatient Visit Historic [facility] [address] [place] [phone] Aldair Garcia MD [address] [facility] [address] [facility] [place] [facility] [place] [phone] Discharge Disposition: Home or Self Care Social History Tobacco Use Types Packs/Day Years Used Date Smoking Tobacco: Never Assessed Sex and Gender Information Value Date Recorded Sex Assigned at Not on file Gender Identity Not on file Sexual Orientation Not on file documented as of this encounter Plan of Treatment Not on file documented as of this encounter Procedures Procedure Name Priority Date/Time Associated Diagnosis Comments XR CHEST 2VW Routine 10/05/2015 4:32 PM DIGITAL CARTOGRAPHIC TECHNICIAN documented in this encounter Results * XR CHEST 2VW (10/05/2015 4:32 PM DIGITAL CARTOGRAPHIC TECHNICIAN) Anatomical Region Laterality Modality Chest Other Impressions 10/06/2015 3:44 PM DIGITAL CARTOGRAPHIC TECHNICIAN Impression: No acute pulmonary process. Dictated by Last Blanca MD I, Dr. PINO SIMEON M.D. have personally reviewed and interpreted this examination/study. This report was electronically signed by PINO SIMEON M.D. ??on 10/06/2015 3:44 PM . Narrative 10/06/2015 3:44 PM DIGITAL CARTOGRAPHIC TECHNICIAN Exam: XR CHEST PA AND LATERAL Date: 10/05/2015 4:32 PM History: melanoma Comparison: 05/23/2011 Findings: Median sternotomy wires and mediastinal surgical clips are redemonstrated. There is a discontinuity of the inferior most sternotomy wire, unchanged from the prior exam. There is no consolidation, pleural effusion, or pneumothorax. ??The cardiomediastinal silhouette is normal. ??The visible bony thorax is intact. Procedure Note Pino Simeon MD - 11/04/2017 Exam: XR CHEST PA AND LATERAL Date: 10/05/2015 4:32 PM History: melanoma Comparison: 05/23/2011 Findings: Median sternotomy wires and mediastinal surgical clips are redemonstrated.There is a discontinuity of the inferior most sternotomy wire, unchangedfrom the prior exam. There is no consolidation, pleural effusion, or pneumothorax. Thecardiomediastinal silhouette is normal. The visible bony thorax isintact. IMPRESSION Impression: No acute pulmonary process. Dictated by Last Blanca MD I, Dr. PINO SIMEON M.D. have personally reviewed and interpreted thisexamination/study. This report was electronically signed by PINO SIMEON M.D. on 10/06/20153:44 PM . 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
--- OUTSIDE RECORDS SUMMARY | 2024-08-22 09:33 | XMS_ITS | Referral Summary ---
Author Organization [facility] Address [address] [facility] [place] [address] Care Team Providers Care Physician Practice Market Manager Name Role Phone Frank Roberson MD Primary Care Provider [phone] Source Comments [facility],non-owned Affiliates and Associated Physician Practices is amultiple site organization consisting of ambulatory clinics and hospital sitesin [place], [place], [place] and [place]. This disclosure is being madepursuant to the Care Everywhere program and may not contain all information available regarding this patient. Last updated 18.[facility] Allergies Active Allergy Reactions Criticality Noted Date Comments Penicillin G Proc & Benzathine Skin Reactions High 1 Penicillins 08/25/2010 Medications * Be aware that medications may not be up to date on this document. Alwaysverify current medications with the patient. Medication Sig Dispensed Refills Start Date End Date Status insulin aspart protamine & aspart 70/30 (NOVOLOG MIX 70/30 FLEXPEN) pen 05/02/2017 Active colesevelam (WELCHOL) 625 MG tablet 06/05/2017 Active Active Problems Problem Noted Date Diagnosed Date Malignant melanoma of other part of trunk 2010 Social History Tobacco Use Types Packs/Day Years Used Date Smoking Tobacco: Never Smokeless Tobacco: Never Alcohol Use Standard Drinks/Week Comments Yes 0 (1 standard drink = 0.6 oz pur e alcohol) Sex and Gender Information Value Date Recorded Sex Assigned at Not on file Gender Identity Not on file Sexual Orientation Not on file Last Filed Vital Signs Vital Sign Reading Time Taken Comments Blood Pressure 138/86 10/05/2015 3:04 PM TURN SEWER Pulse 81 10/05/2015 3:04 PM TURN SEWER Temperature 36.4 ??C (97.6 ??F) 10/05/2015 3:04 PM CS T Respiratory Rate - - Oxygen Saturation 93% 10/05/2015 3:04 PM TURN SEWER Inhaled Oxygen Concentration - - Weight 106.6 kg (235 lb) 10/05/2015 3:04 PM TURN SEWER Height 175.3 cm (5' 9 ) 10/05/2015 3:04 PM TURN SEWER Body Mass Index 34.7 10/05/2015 3:04 PM TURN SEWER Plan of Treatment Not on file Care Teams Physician Practice Market Manager Relationship Specialty Start Date End Date Frank Roberson MD [address] [place] [address] PCP - General 01/08/09
--- OUTSIDE RECORDS SUMMARY | 2024-08-22 09:33 | XMS_ITS | Encounter Summary ---
Author Organization [facility] Address [address] [facility] [place] [address] Care Team Providers Care Lapping Machine Set Up Operator Name Role Phone Frank Roberson MD Primary Care Provider [phone] Encounter Details Date Type Department Care Team (Latest Contact Info) Description 10/05/2015 Hospital Outpatient Visit Historic [facility] [address] [place] [phone] Aldair Garcia MD [address] [facility] [address] DIV OF [facility] [place] [phone] Discharge Disposition: Home or Self Care Social History Tobacco Use Types Packs/Day Years Used Date Smoking Tobacco: Never Assessed Sex and Gender Information Value Date Recorded Sex Assigned at Not on file Gender Identity Not on file Sexual Orientation Not on file documented as of this encounter Plan of Treatment Not on file documented as of this encounter Visit Diagnoses Not on filedocumented in this encounter Care Teams Lapping Machine Set Up Operator Relationship Specialty Start Date End Date Frank Roberson MD [address] [id number] [address] PCP - General 01/08/09 documented as of this encounter
--- OUTSIDE RECORDS SUMMARY | 2024-08-22 09:33 | XMS_ITS | Clinical Summary ---
Author Organization [facility] [employer] Address [address] [facility] [place] [address] Care Team Providers Care Culinary Arts Instructor Name Role Phone Frank Roberson MD Primary Care Provider [phone] Source Comments [facility] [employer],non-owned Affiliates and Associated Physician Practices is amultiple site organization consisting of ambulatory clinics and hospital sitesin [place], [place], [place] and [place]. This disclosure is being madepursuant to the Care Everywhere program and may not contain all information available regarding this patient. Last updated 18.[facility] [employer] Allergies Active Allergy Reactions Criticality Noted Date [...] melanoma of other part of trunk 2010 Family History Medical History Relation Name Comments Cataract Neg Hx Glaucoma Neg Hx Social History Tobacco Use Types Packs/Day Years [...] Comments Blood Pressure 138/86 10/05/2015 3:04 PM OPTICAL LABORATORY MANAGER Pulse 81 10/05/2015 3:04 PM OPTICAL LABORATORY MANAGER Temperature 36.4 ??C (97.6 ??F) 10/05/2015 3:04 PM CS T Respiratory Rate - - Oxygen Saturation 93% 10/05/2015 3:04 PM OPTICAL LABORATORY MANAGER Inhaled Oxygen Concentration - - Weight 106.6 kg (235 lb) 10/05/2015 3:04 PM OPTICAL LABORATORY MANAGER Height 175.3 cm (5' 9 ) 10/05/2015 3:04 PM OPTICAL LABORATORY MANAGER Body Mass Index 34.7 10/05/2015 3:04 PM OPTICAL LABORATORY MANAGER Plan of Treatment Health Maintenance Due Date Last Done Comments DTAP/TDAP/TD VACCINES (1 - Tdap) 1963 PNEUMOCOCCAL VACCINE 50+ (1 of 1 - PCV) 1994 ZOSTER VACCINE (1 of 2) 1994 Respiratory Syncytial Virus (RSV) Vaccine Pt: or over 60 yrs (1 - 1-dose 75+ series) 2019 COVID-19 VACCINE (2023-2 5 season) 2024 INFLUENZA VACCINE (#1) 2024 DEPRESSION SCREENING 08/07/2024 HEPATITIS B VACCINE Aged Out No longe r eligible based on patient's age to complete this topic HIB VACCINE Aged Out No longer eligi ble based on patient's age to complete this topic HPV VACCINE Aged Out No longer eligi ble based on patient's age to complete this topic MENINGOCOCCAL (Group B) VACCINE Aged Out No longer eligible based on patient's age to complete this topic MENINGOCOCCAL VACCINE Aged Out No francy lexa eligible based on patient's age to complete this topic Care Teams Culinary Arts Instructor Relationship Specialty Start Date End Date Frank Roberson MD [address] [place] [address] [facility] - General 01/08/09
--- OUTSIDE RECORDS SUMMARY | 2024-08-22 09:33 | XMS_ITS | Patient Health Summary ---
Author Organization [facility] Address [address] [place] [address] Care Team Providers Care Educational Guidance Counselor Name Role Phone Frank Roberson MD Primary Care Provider [phone] Note from [facility],non-owned Affiliates and Associated Physician Practices is amultiple site organization consisting of ambulatory clinics and hospital sitesin [place], [place], [place] and [place]. This disclosure is being madepursuant to the Care Everywhere program and may not contain all information available regarding this patient. Last updated 18.[facility] Allergies * Penicillin G Proc & Benzathine(Skin Reactions) -High Criticality * Penicillins Medications * Be aware that medications may not be up to date on this document. Alwaysverify current medications with the patient. * insulin aspart protamine & aspart 70/30 (NOVOLOG MIX 70/30 FLEXPEN) pen (Started 05/02/2017) * colesevelam (WELCHOL) 625 MG tablet(Started 06/05/2017) Active Problems Problem Noted Date Diagnosed Date [...] Comments Blood Pressure 138/86 10/05/2015 3:04 PM TRANSACTIONAL PARALEGAL Pulse 81 10/05/2015 3:04 PM TRANSACTIONAL PARALEGAL Temperature 36.4 ??C (97.6 ??F) 10/05/2015 3:04 PM CS T Respiratory Rate - - Oxygen Saturation 93% 10/05/2015 3:04 PM TRANSACTIONAL PARALEGAL Inhaled Oxygen Concentration - - Weight 106.6 kg (235 lb) 10/05/2015 3:04 PM TRANSACTIONAL PARALEGAL Height 175.3 cm (5' 9 ) 10/05/2015 3:04 PM TRANSACTIONAL PARALEGAL Body Mass Index 34.7 10/05/2015 3:04 PM TRANSACTIONAL PARALEGAL Procedures * XR CHEST 2VW(Performed 10/05/2015) * CULTURE ANAEROBE(Performed 04/03/2014) * CULTURE TISSUE+GRAM STAIN(Performed 04/03/2014) * CULTURE AEROBIC + GRAM STAIN(Performed 04/03/2014) * CULTURE AEROBIC(Performed 04/03/2014) * GRAM STAIN SMEAR(Performed 04/03/2014) * PATHOLOGY/GENETICS HISTORICAL-ONBASE(Performed 04/20/2011) * PATHOLOGY/GENETICS HISTORICAL-ONBASE(Performed 04/20/2011) * PATHOLOGY/GENETICS HISTORICAL-ONBASE(Performed 04/20/2011) * PATHOLOGY REPORTS - HPF HISTORICAL(Performed 07/27/2010) Results * XR CHEST 2VW (10/05/2015 4:32 PM TRANSACTIONAL PARALEGAL) Anatomical Region Laterality Modality Chest Other Impressions 10/06/2015 3:44 PM TRANSACTIONAL PARALEGAL Impression: No acute pulmonary process. Dictated by Last Blanca MD I, Dr. PNIO SIMEON M.D. have personally reviewed and interpreted this examination/study. This report was electronically signed by PINO SIMEON M.D. ??on 10/06/2015 3:44 PM . Narrative 10/06/2015 3:44 PM TRANSACTIONAL PARALEGAL Exam: XR CHEST PA AND LATERAL Date: [...] Aldair Garcia MD DIAGNOSTIC IMAGING O RDERABLES * (ABNORMAL) CULTURE AEROBIC + GRAM STAIN (04/03/2014 7:45 AM CDT) Culture Aerobic COAG NEG STAPH SPECIES(A) [facility] Comment: Very Light Growth Coagulase Neg Staph Species After 48 hours Decubitus 04/03/2014 7:45 AM CDT 04/03/2014 10:32 PM CDT Narrative [facility] - 04/05/2014 1:08 PM CDT MaybeeSpecimen#[id number] Maybee Loc/Rm/Bed: 2 SURG/ GI LAB Source: LEFT SMALL TOE Historical Provider LAB - MICROBIOLOG Y ORDERABLES Performing Organization Address [facility]/State/[facility] Co de Phone Number [address] [phone] * CULTURE AEROBIC (04/03/2014 7:45 AM CDT) Decubitus 04/03/2014 7:45 AM CDT [facility] - 04/05/2014 1:08 PM CDT AndersonSpecimen#[id number] Maybee Loc/Rm/Bed: 2 SURG/202/ GI LAB Source: LEFT SMALL TOE The following orders were created for panel order CULTURE, AEROBIC & GRAM STAIN. Procedure ? Abnormality ? Status ? --------- ? ------ ? CULTURE, AEROBIC[[id number]] ?Abnormal ?Final result ? STAIN, GRAM (PERFORM)[[id number]] ? Final result ? Please view results for these tests on the individual orders. Historical Provider MD LAB - MICROBIOLOG Y ORDERABLES Performing Organization Address [facility]/State/[facility] Co de Phone Number [facility] [address] [place] [address], [facility] * (ABNORMAL) CULTURE TISSUE+GRAM STAIN (04/03/2014 7:45 AM CDT) Culture Tissue No Growth at 24 hours [facility] Culture Tissue COAG NEG STAPH SPECIES(A) [facility] Comment: Light Growth Coagulase Neg Staph Species After 48 hours Tissue 04/03/2014 7:4 5 AM CDT 04/03/2014 10:30 PM CDT Narrative [facility] - 04/06/2014 12:54 PM CDT Damion#[id number] Ruben Loc/Rm/Bed: 2 SURG/ Source: LEFT SMALL TOE Organism Antibiotic Method Susceptibility Coagulase negative Staphylococcus Clindamycin SUSCEPTIBILITY >=4: Resistant Coagulase negative Staphylococcus Doxycycline SUSCEPTIBILITY <=0.5: Sensitive Coagulase negative Staphylococcus Erythromycin SUSCEPTIBILITY >=8: Resistant Coagulase negative Staphylococcus Gentamicin SUSCEPTIBILITY 4: Sensitive Coagulase negative Staphylococcus Levofloxacin SUSCEPTIBILITY >=8: Resistant Coagulase negative Staphylococcus Oxacillin SUSCEPTIBILITY >=4: Resistant Coagulase negative Staphylococcus Trimethoprim-sulfamethox azole SUSCEPTIBILITY >=320: Resistant Coagulase negative Staphylococcus Vancomycin SUSCEPTIBILITY 2: Sensitive Historical Provider MD LAB - MICROBIOLOG Y ORDERABLES Performing Organization Address City/[facility]/ZIP Co de Phone Number [address] [phone] * GRAM STAIN SMEAR (04/03/2014 7:45 AM CDT) Gram Stain No Organism Seen [facility] Decubitus 04/03/2014 7:45 AM CDT 04/03/2014 10:32 PM CDT Narrative [facility] - 04/04/2014 12:53 AM CDT AndersonSpecimen#[id number] Ruben Loc/Rm/Bed: 2 SURG GI LAB Source: LEFT SMALL TOE Gram Stains are routinely screened for the presence of Polymorphonuclear Cells. Historical Provider LAB - MICROBIOLOG Y ORDERABLES Performing Organization Address [facility] Co de Phone Number [address] [phone] * CULTURE ANAEROBE (04/03/2014 7:45 AM CDT) Culture Anaerobic No Growth Anaerobes. [facility] Wound 04/03/2014 7:45 AM CDT 04/03/2014 10:33 PM CDT Narrative [facility] - 04/11/2014 7:54 PM CDT AndersonSpecimen#[id number] Ruben Loc/Rm/Bed: 2 SURG Source: LEFT SMALL TOE AEROBIC GROWTH COMPATIBLE WITH ROUTINE CULTURE. Historical Provider LAB - MICROBIOLOG Y ORDERABLES Performing Organization Address City/[facility]/ZIP Co de Phone Number [address] [phone] * PATHOLOGY/GENETICS HISTORICAL-ONBASE (04/20/2011) Only the most recent of3 resultswithin the time period is included. 04/20/2011 Historical Provider LAB - CHEMISTRY O RDERABLES [facility] * PATHOLOGY REPORTS - HPF HISTORICAL (07/27/2010 10:52 AM TRANSACTIONAL PARALEGAL) 07/27/2010 10:5 2 AM TRANSACTIONAL PARALEGAL Narrative [facility] - 07/27/2010 10:52 AM TRANSACTIONAL PARALEGAL Aldair Garcia MD LAB - PATHOLOGY/CYTO LOGY ORDERABLES [facility] Care Teams Educational Guidance Counselor Relationship Specialty Start Date End Date Frank Roberson MD [address] [place] [address] PCP - General 01/08/09
--- OUTSIDE RECORDS SUMMARY | 2024-08-22 09:34 | XMS_ITS | Continuity of Care Document ---
Author Organization [facility] Address [address] [place] [address] [address] [place] [address] Phone Care Team Providers Care Spirits Model Name Role Phone Lex Lockwood Unavailable Unavailable Advance Directives Directive Yes / No Effective Date File Name No Information Encounters Encounter Description Practice Location Reason(s) For Visit Diagnoses Date Provider Providers Copied on Encounter [facility], [address] [place] [address] [address], [place], [place], [id number], [place] tel:[phone] [facility] No Information Mar-0 2-200 1 Mandie Burnett. [address] , [address], [place], [address], [place]. tel:[phone] Family History Family Member Type Diagnosis Age At Onset No Information Payers Payer name Insurance type Covered libertarian ID Authoriza tion(s) No Information Social History Type Description Quantity Date Captured Comments Sex Male Smoking Status No Information Chief Complaint And Reason For Visit No Information Reason For Referral Reason For Referral No Information History Of Present Illness Encounter Date Complaint History Of Prese nt Illness No Information Functional Status Date Functional Assessmen t No Information Instructions Date Instruction Additional Infor mation No Information Assessments Type Assessment Date No Information Patient Care Teams Name Effective Dates (start - stop) Status Members No Information
--- OUTSIDE RECORDS SUMMARY | 2024-08-22 13:21 | XMS_ITS | Clinical Summary ---
Author Organization [facility] [employer] Address [address] [facility] [place] [address] Care Team Providers Care Lumber Stacker Name Role Phone Frank Roberson MD Primary Care Provider [phone] Source Comments [facility] [employer],non-owned Affiliates and Associated Physician Practices is amultiple site organization consisting of ambulatory clinics and hospital sitesin [place], [place], [place] and [place]. This disclosure is being madepursuant to the Care Everywhere program and may not contain all information available regarding this patient. Last updated 18.[facility] [employer] Allergies Active Allergy Reactions Criticality Noted Date [...] Comments Blood Pressure 138/86 10/05/2015 3:04 PM DESULFURIZER OPERATOR Pulse 81 10/05/2015 3:04 PM DESULFURIZER OPERATOR Temperature 36.4 ??C (97.6 ??F) 10/05/2015 3:04 PM CS T Respiratory Rate - - Oxygen Saturation 93% 10/05/2015 3:04 PM DESULFURIZER OPERATOR Inhaled Oxygen Concentration - - Weight 106.6 kg (235 lb) 10/05/2015 3:04 PM DESULFURIZER OPERATOR Height 175.3 cm (5' 9 ) 10/05/2015 3:04 PM DESULFURIZER OPERATOR Body Mass Index 34.7 10/05/2015 3:04 PM DESULFURIZER OPERATOR Plan of Treatment Health Maintenance Due Date [...] age to complete this topic Care Teams Lumber Stacker Relationship Specialty Start Date End Date Frank Roberson MD [address] [place] [address] [facility] - General 01/08/09
--- OUTSIDE RECORDS SUMMARY | 2024-08-22 13:22 | XMS_ITS | Patient Health Summary ---
Author Organization [facility] Address [address] [place] [address] Care Team Providers Care Workday Financials Consultant Name Role Phone Frank Roberson MD Primary Care Provider [phone] Note from [facility],non-owned Affiliates and Associated Physician Practices is amultiple site organization consisting of ambulatory clinics and hospital sitesin [place], [place], [place] and [place]. This disclosure is being madepursuant to the Care Everywhere program and may not contain all information available regarding this patient. Last updated 18.[facility] Allergies * Penicillin G Proc & Benzathine(Skin [...] Comments Blood Pressure 138/86 10/05/2015 3:[address] STENOGRAPHER Pulse 81 10/05/2015 3:[address] STENOGRAPHER Temperature 36.4 ??C (97.6 ??F) 10/05/2015 3:04 PM CS T Respiratory Rate - - Oxygen Saturation 93% 10/05/2015 3:[address] STENOGRAPHER Inhaled Oxygen Concentration - - Weight 106.6 kg (235 lb) 10/05/2015 3:[address] STENOGRAPHER Height 175.3 cm (5' 9 ) 10/05/2015 3:[address] STENOGRAPHER Body Mass Index 34.7 10/05/2015 3:[address] STENOGRAPHER Procedures * XR CHEST 2VW(Performed 10/05/2015) * CULTURE ANAEROBE(Performed 04/03/2014) * CULTURE TISSUE+GRAM STAIN(Performed 04/03/2014) * CULTURE AEROBIC + GRAM STAIN(Performed 04/03/2014) * CULTURE AEROBIC(Performed 04/03/2014) * GRAM STAIN SMEAR(Performed 04/03/2014) * PATHOLOGY/GENETICS HISTORICAL-ONBASE(Performed 04/20/2011) * PATHOLOGY/GENETICS HISTORICAL-ONBASE(Performed 04/20/2011) * PATHOLOGY/GENETICS HISTORICAL-ONBASE(Performed 04/20/2011) * PATHOLOGY REPORTS - HPF HISTORICAL(Performed 07/27/2010) Results * XR CHEST 2VW (10/05/2015 4:[address] STENOGRAPHER) Anatomical Region Laterality Modality Chest Other Impressions 10/06/2015 3:[address] STENOGRAPHER Impression: No acute pulmonary process. Dictated by Last Blanca MD I, Dr. PINO SIMEON M.D. have personally reviewed and interpreted this examination/study. This report was electronically signed by PINO SIMEON M.D. ??on 10/06/2015 3:44 PM . Narrative 10/06/2015 3:[address] STENOGRAPHER Exam: XR CHEST PA AND LATERAL Date: [...] CDT) Culture Aerobic COAG NEG STAPH SPECIES(A) [facility] Comment: Very Light Growth Coagulase Neg Staph Species After 48 hours Decubitus 04/03/2014 7:45 AM CDT 04/03/2014 10:32 PM CDT Narrative [facility] - 04/05/2014 1:08 PM CDT [id number] [place] Loc/Rm/Bed: 2 SURG/ GI LAB Source: LEFT SMALL TOE Historical Provider LAB - MICROBIOLOG Y ORDERABLES Performing Organization Address [facility]/State/[facility] Co de Phone Number [address] [phone] * CULTURE AEROBIC (04/03/2014 7:45 AM CDT) Decubitus 04/03/2014 7:45 AM CDT [facility] - 04/05/2014 1:08 PM CDT [place]imen#[id number] [place] Loc/Rm/Bed: 2 SURG/202/ GI LAB Source: LEFT SMALL TOE The following orders were created for panel order CULTURE, AEROBIC & GRAM STAIN. Procedure ? Abnormality ? Status ? --------- ? ------ ? CULTURE, AEROBIC[[id number]] ?Abnormal ?Final result ? STAIN, GRAM (PERFORM)[[id number]] ? Final result ? Please view results for these tests on the individual orders. Historical Provider MD LAB - MICROBIOLOG Y ORDERABLES Performing Organization Address [facility]/State/[facility] Co de Phone Number [facility] [address] [place] [address], [facility] * (ABNORMAL) CULTURE TISSUE+GRAM STAIN (04/03/2014 7:45 AM CDT) Culture Tissue No Growth at 24 hours [facility] Culture Tissue COAG NEG STAPH SPECIES(A) [facility] Comment: Light Growth Coagulase Neg Staph Species After 48 hours Tissue 04/03/2014 7:4 5 AM CDT 04/03/2014 10:30 PM CDT Narrative [facility] - 04/06/2014 12:54 PM CDT [place]#[id number] [place] Loc/Rm/Bed: 2 SURG/ Source: LEFT SMALL [...] - MICROBIOLOG Y ORDERABLES Performing Organization Address City/[facility]/ZIP Co de Phone Number [address] [phone] * GRAM STAIN SMEAR (04/03/2014 7:45 AM CDT) Gram Stain No Organism Seen [facility] Decubitus 04/03/2014 7:45 AM CDT 04/03/2014 10:32 PM CDT Narrative [facility] - 04/04/2014 12:53 AM CDT [place]imen#[id number] [place] Loc/Rm/Bed: 2 SURG GI LAB Source: LEFT SMALL TOE Gram Stains are routinely screened for the presence of Polymorphonuclear Cells. Historical Provider LAB - MICROBIOLOG Y ORDERABLES Performing Organization Address [facility] Co de Phone Number [address] [phone] * CULTURE ANAEROBE (04/03/2014 7:45 AM CDT) Culture Anaerobic No Growth Anaerobes. [facility] Wound 04/03/2014 7:45 AM CDT 04/03/2014 10:33 PM CDT Narrative [facility] - 04/11/2014 7:54 PM CDT [place]Specimen#[id number] [place] Loc/Rm/Bed: 2 SURG Source: LEFT SMALL TOE AEROBIC GROWTH COMPATIBLE WITH ROUTINE CULTURE. Historical Provider LAB - MICROBIOLOG Y ORDERABLES Performing Organization Address City/[facility]/ZIP Co de Phone Number [address] [phone] * PATHOLOGY/GENETICS HISTORICAL-ONBASE (04/20/2011) Only the most recent of3 resultswithin the time period is included. 04/20/2011 Historical Provider LAB - CHEMISTRY O RDERABLES [facility] * PATHOLOGY REPORTS - HPF HISTORICAL (07/27/2010 10:[address] STENOGRAPHER) 07/27/2010 10:[address] STENOGRAPHER N[address] [facility] - 07/27/2010 10:[address] STENOGRAPHER Aldair Garcia MD LAB - PATHOLOGY/CYTO LOGY ORDERABLES [facility] Care Teams Workday Financials Consultant Relationship Specialty Start Date End Date Frank Roberson MD [address] [place] [address] PCP - General 01/08/09
--- OUTSIDE RECORDS SUMMARY | 2024-08-22 13:22 | XMS_ITS | Encounter Summary ---
Author Organization [facility] Address [address] [place] [address] Care Team Providers Care Cleaner Wall Name Role Phone Frank Roberson MD Primary Care Provider [phone] Encounter Details Date Type Department Care Team (Latest Contact Info) Description 10/05/2015 Hospital Outpatient Visit Historic [facility] OUTPATIENT SERVICES [address] [place] [phone] Aldair Garcia MD [address] [facility] [address] [facility] [place] [phone] Discharge Disposition: Home or Self Care Social [...] XR CHEST 2VW Routine 10/05/2015 4:32 PM TREASURY DIRECTOR documented in this encounter Results * XR CHEST 2VW (10/05/2015 4:32 PM TREASURY DIRECTOR) Anatomical Region Laterality Modality Chest Other Impressions 10/06/2015 3:44 PM TREASURY DIRECTOR Impression: No acute pulmonary process. Dictated by Last Blanca MD I, Dr. PINO SIMEON M.D. have personally reviewed and interpreted this examination/study. This report was electronically signed by PINO SIMEON M.D. ??on 10/06/2015 3:44 PM . Narrative 10/06/2015 3:44 PM TREASURY DIRECTOR Exam: XR CHEST PA AND LATERAL Date: [...] (HCC) documented in this encounter Care Teams Cleaner Wall Relationship Specialty Start Date End Date Frank Roberson MD [address] [place] [id number] PCP - General 01/08/09 documented as of this encounter
--- OUTSIDE RECORDS SUMMARY | 2024-08-22 13:22 | XMS_ITS | Referral Summary ---
Author Organization [facility] [employer] Address [address] [place] [address] Care Team Providers Care Floor Assembler Name Role Phone Frank Roberson MD Primary Care Provider [phone] Source Comments [facility],non-owned Affiliates and Associated Physician Practices is amultiple site organization consisting of ambulatory clinics and hospital sitesin [place], [place], [place] and [place]. This disclosure is being madepursuant to the Care Everywhere program and may not contain all information available regarding this patient. Last updated 18.[facility] [employer] Allergies Active Allergy Reactions Criticality Noted Date [...] Comments Blood Pressure 138/86 10/05/2015 3:04 PM BLOCK LAYER Pulse 81 10/05/2015 3:04 PM BLOCK LAYER Temperature 36.4 ??C (97.6 ??F) 10/05/2015 3:04 PM CS T Respiratory Rate - - Oxygen Saturation 93% 10/05/2015 3:04 PM BLOCK LAYER Inhaled Oxygen Concentration - - Weight 106.6 kg (235 lb) 10/05/2015 3:04 PM BLOCK LAYER Height 175.3 cm (5' 9 ) 10/05/2015 3:04 PM BLOCK LAYER Body Mass Index 34.7 10/05/2015 3:04 PM BLOCK LAYER Plan of Treatment Not on file Care Teams Floor Assembler Relationship Specialty Start Date End Date Frank Roberson MD [address] [place] [phone] PCP - General 01/08/09
--- OUTSIDE RECORDS SUMMARY | 2024-08-22 13:22 | XMS_ITS | Encounter Summary ---
Author Organization [facility] Address [address] [place] [address] Care Team Providers Care Fur Mixer Operator Name Role Phone Frank Roberson MD Primary Care Provider [phone] Encounter Details Date Type Department Care Team (Latest Contact Info) Description 10/05/2015 Hospital Outpatient Visit Historic [facility] OUTPATIENT SERVICES [address] [place] [phone] Aldair Garcia MD [address] [facility] [address] [facility] [place] [phone] Discharge Disposition: Home or Self Care Social [...] on filedocumented in this encounter Care Teams Fur Mixer Operator Relationship Specialty Start Date End Date Frank Roberson MD [address] [place] [phone] PCP - General 01/08/09 documented as of this encounter
--- OUTSIDE RECORDS SUMMARY | 2024-08-22 13:23 | XMS_ITS | Continuity of Care Document ---
Author Organization [facility] Address [id number] [place] [address] [address] [place] [address] Phone Care Team Providers Care Gardening Instructor Name Role Phone Lex Lockwood Unavailable Unavailable Advance Directives Directive Yes / No Effective Date File Name No Information Encounters Encounter Description Practice Location Reason(s) For Visit Diagnoses Date Provider Providers Copied on Encounter [facility], [id number] [place] [address] [address], [place], [place], [id number], [place] tel:[phone] [facility] No Information Mar-0 2-200 1 Mandie Burnett. [address] , [address], [place], [address], [place]. tel:[phone] Family History Family Member Type Diagnosis Age At Onset No Information Payers Payer name Insurance type Covered alliance party ID Authoriza tion(s) No Information Social History [...]
== END 2024-08-17 12:20 | disposition home or self-care (01) | DRG 918 ==
LOC: ANHED 06:42 → ANHICU 07:52 → ANH3MEDSUR 08-16 20:38
PROVIDERS: Internal Medicine; Admitting Provider Internal Medicine; Emergency Provider Emergency Medicine; Visit Provider Internal Medicine
DX: T39.1X1A Poisoning by 4-Aminophenol derivatives, accidental (unintentional), initial encounter (principal); L03.116 Cellulitis of left lower limb; L97.929 Non-pressure chronic ulcer of unspecified part of left lower leg with unspecified severity; I87.2 Venous insufficiency (chronic) (peripheral); I25.10 Atherosclerotic heart disease of native coronary artery without angina pectoris; I12.9 Hypertensive chronic kidney disease with stage 1 through stage 4 chronic kidney disease, or unspecified chronic kidney disease; N18.9 Chronic kidney disease, unspecified; E11.42 Type 2 diabetes mellitus with diabetic polyneuropathy; E11.22 Type 2 diabetes mellitus with diabetic chronic kidney disease; E55.9 Vitamin D deficiency, unspecified; E78.5 Hyperlipidemia, unspecified; C61 Malignant neoplasm of prostate; H53.50 Unspecified color vision deficiencies; F41.9 Anxiety disorder, unspecified; Z89.429 Acquired absence of other toe(s), unspecified side; Z95.1 Presence of aortocoronary bypass graft; Z79.4 Long term (current) use of insulin; Z79.82 Long term (current) use of aspirin; Z79.899 Other long term (current) drug therapy
CPT/HCPCS: 36415; 71045; 73700; 80053; 80076; 80143; 80179; 80307; 81001; 82077; 82948; 83735; 84145; 84439; 84443; 84480; 85025; 85027; 85610; 87040; 87641; 93005; 93971; 96361; 96365; 96366; 96367; 96368; 96375; 97165; 99212; 99285; A9270; G0378; G0463; J0132; J0360; J0692; J1650; J1815; J2405; J3370; J7030; J7060; J7070; J7120

== ENCOUNTER 2025-01-17 08:02 | Outpatient (RCR) | payer MEDICARE, OTHER, SELFPAY ==
[2025-01-17 08:30] VITALS: BMI 31.8
== END 2025-03-31 10:40 | disposition home or self-care (01) ==
LOC: ANHWOC 08:02
PROVIDERS: PCP Internal Medicine; Visit Provider Internal Medicine
DX: S81.802D Unspecified open wound, left lower leg, subsequent encounter (principal)
CPT/HCPCS: 99215; A9270; G0463